=== PATIENT | female | born 1950 | race Caucasian/White ===

== ENCOUNTER 2019-04-17 13:16 | Observation (INO) | payer OTHER, BC ==
[2019-04-17] MEDS ORDERED: ASPIRIN 81 MG CHEWABLE TABLETS PO ONE (13:30)
--- NOTE | 2019-04-17 13:30 | PDOC ---
Rapid Medical Evaluation Time Seen by Provider: 04/17/19 13:26 Medical Evaluation: Allergies Allergy/AdvReac Type Severity Reaction Status Date / Time ciprofloxacin AdvReac Verified 08/29/16 14:11 04/17/19 13:26 I have performed a brief in-person evaluation of this patient. The patient presents with a chief complaint of: intermittent chest pain/SOB x 1 day, venous ulcer to R leg "needs antibiotics", using mupirocin cream rxed in this ED with improvement Pertinent physical exam findings:well appearing, venous stasis ulcer to R anterior LE I have ordered the following: labs, x-ray, EKG The patient will proceed to the ED for further evaluation.
--- NOTE | 2019-04-17 13:46 | PDOC ---
Rapid Medical Evaluation Time Seen by Provider: 04/17/19 13:26 Medical Evaluation: Allergies Allergy/AdvReac Type Severity Reaction Status Date / Time ciprofloxacin AdvReac Verified 04/17/19 13:39 04/17/19 13:42 I have performed a brief in-person evaluation of this patient. The patient presents with a chief complaint of: cough/congestion/cp x 3 weeks, dizzy, weakness, PCP Eric Vernon sent to ED after given cefuroxime w/o relief Pertinent physical exam findings: dry cough I have ordered the following: labs, CXR The patient will proceed to the ED for further evaluation.
--- NOTE | 2019-04-17 15:01 | PDOC ---
History of Present Illness - General Chief Complaint: Cold Symptoms Stated Complaint: COUGHING/ WEAKNESS Time Seen by Provider: 04/17/19 13:26 - History of Present Illness Initial Comments: 68 year old female with history of HLD presenting with cough for the past three weeks despite using cefuroxime for the past week. States that she noticed a light cough and started to have chills three weeks prior and then seemed to improve slightly. Her symptoms returned and she started cefuroxime after seeing Dr. noriega last week. However, her symptoms have persisted so Dr. noriega ordered an outpatient chest CT for this Monday. She states that today she started to feel weak and lightheaded despite eating her normal amount of food and drinking her normal amount of fluid. Denies syncope, chest pain, current fever (last fever was three days prior), myalgias, SOB, chest pain, hemoptysis, palpitations. 04/17/19 15:37 Past History - Past Medical History Allergies/Adverse Reactions: Allergies Allergy/AdvReac Type Severity Reaction Status Date / Time ciprofloxacin AdvReac Verified 04/17/19 13:39 Home Medications: Ambulatory Orders Simvastatin 10 mg PO DAILY 08/29/16 Amlodipine Besylate/Valsartan [Amlodipine-Valsartan 10-160 mg] 1 tbs PO DAILY Fluticasone/Umeclidin/Vilanter [Trelegy Ellipta 100-62.5-25] 1 each [facility] PRN 04/17/19 Furosemide 20 mg PO DAILY 04/17/19 Lubiprostone [Amitiza] 24 mcg PO BID 04/17/19 Metoprolol Tartrate 25 mg PO BID 04/17/19 COPD: No CHF: Yes HTN: Yes Hypercholesterolemia: Yes - Immunization History Immunization Up to Date: Yes - Suicide/Smoking/Psychosocial Hx Smoking History: Never smoked Information on smoking cessation initiated: No Hx Alcohol Use: No Drug/Substance Use Hx: No Substance Use Type: None Hx Substance Use Treatment: No Review of Systems - Review of Systems Constitutional: Yes: Chills, Fever. No: See HPI HEENTM: No: Eye Pain, Blurred Vision, Tearing Respiratory: Yes: Cough. No: Shortness of Breath, Wheezing Cardiac (ROS): Yes: Lightheadedness. No: Chest Pain, Edema, Irregular Heart Rate ABD/GI: No: Diarrhea, Nausea, Vomiting : No: Burning, Dysuria, Discharge Musculoskeletal: No: Back Pain, Joint Pain Integumentary: No: Bruising, Erythema, Flushing, Lesions Neurological: No: Headache, Numbness, Paresthesia Psychiatric: No: Anxiety, Depression Hematologic/Lymphatic: No: Anemia, Blood Clots *Physical Exam - Vital Signs Last Vital Signs Temp Pulse Resp BP Pulse Ox 98.2 F 69 16 100/64 95 04/17/19 13:40 04/17/19 13:40 04/17/19 13:40 04/17/19 13:40 04/17/19 13:40 - Physical Exam General Appearance: Yes: Nourished, Appropriately Dressed. No: Apparent Distress HEENT: positive: EOMI, EVARISTO, Normal ENT Inspection, Normal Voice Neck: positive: Trachea midline, Normal Thyroid, Supple. negative: Tender, Rigid Respiratory/Chest: positive: Lungs Clear, Normal Breath Sounds. negative: Chest Tender, Respiratory Distress, Accessory Muscle Use Cardiovascular: positive: Regular Rhythm, Regular Rate Gastrointestinal/Abdominal: positive: Normal Bowel Sounds, Flat, Soft. negative : Tender Lymphatic: negative: Adenopathy, Tenderness Musculoskeletal: positive: Normal Inspection. negative: Decreased Range of Motion Extremity: positive: Normal Capillary Refill, Normal Inspection, Normal Range of Motion. negative: Tender Integumentary: positive: Normal Color, Dry, Warm Neurologic: positive: Fully Oriented, Alert, Normal Mood/Affect, Normal Response , Motor Strength 5/5 ED Treatment Course - LABORATORY CBC & Chemistry Diagram: 04/18/19 06:00 04/17/19 16:13 Medical Decision Making - Medical Decision Making 68 year old female with lightheadedness after three weeks of a cough. Otherwise appears well and VSS with clear CXR. Chest CT also WNL. Troponin negative and EKg demonstrating rat 61, MS 160, QRS 104, QTc 406, normal axis, inferior infarct, and anterior twave inversion unchanged from previous EKG in . Patient still slightly light headed so we gave one liter of NS and patient is pending re-eval by Dr. Luevano. 04/17/19 19:37 *DC/Admit/Observation/Transfer Diagnosis at time of Disposition: Generalized weakness, Cough, Dizziness - Discharge Dispostion Condition at time of disposition: Stable - Referrals - Patient Instructions - Post Discharge Activity
[2019-04-17 16:31] LABS: BASO % 0.7 % (0-2.0); EOS % 1.4 % (0-4.5); HEMATOCRIT 42.2 % (32.4-45.2); HEMOGLOBIN 13.9 GM/dL (10.7-15.3); LYMPH % 36.3 % (8-40); MCH 28.8 pg (25.7-33.7); MEAN CELL VOLUME 87.2 fl (80-96); MEAN PLT VOLUME 9.2 fl (7.5-11.1); MONO % 8.4 % (3.8-10.2); NEUT % 53.2 % (42.8-82.8); PLATELET COUNT 252 K/MM3 (134-434); RBC 4.84 M/mm3 (3.60-5.2); RDW 13.6 % (11.6-15.6); WHITE BLOOD COUNT 7.6 K/mm3 (4.0-10.0)
[2019-04-17 16:48] LABS: INR 0.97 (0.83-1.09); PROTHROMBIN TIME (PATIENT) 11.5 SEC (9.7-13.0)
[2019-04-17 17:06] LABS: ALBUMIN 3.9 g/dl (3.4-5.0); ALK PHOS 96 U/L (45-117); ANION GAP 6 MMOL/L (8-16); BILIRUBIN,TOTAL 0.3 mg/dL (0.2-1); BLOOD UREA NITROGEN 20 mg/dL (7-18); CHLORIDE 104 mmol/L (98-107); CO2 29 mmol/L (21-32); CREATININE 0.7 mg/dL (0.55-1.3); GLUCOSE,RANDOM 82 mg/dL (74-106); MAGNESIUM 2.4 mg/dL (1.8-2.4); POTASSIUM 4.1 mmol/L (3.5-5.1); SGOT/AST 9 U/L (15-37); SGPT/ALT 31 U/L (13-61); SODIUM 139 mmol/L (136-145); TOT PROT 7.6 g/dl (6.4-8.2)
--- NOTE | 2019-04-17 17:48 | PDOC ---
Documentation entered by Byron Chairez SCRIBE, acting as scribe for Daylin Campa MD. Daylin Campa MD: This documentation has been prepared by the Contreras thomas Nirvannie, SCRIBE, under my direction and personally reviewed by me in its entirety. I confirm that the documentation accurately reflects all work, treatment, procedures, and medical decision making performed by me. Attending Attestation - Resident Resident Name: Sinan Arango - ED Attending Attestation I have performed the following: I have examined & evaluated the patient, The case was reviewed & discussed with the resident, I agree w/resident's findings & plan - HPI HPI: 04/17/19 16:50 The patient is a 68 year old female, with a significant past medical history of HLD, who presents to the emergency department with, 3 weeks of a worsening cough. Patient notes to have been on cefuroxime the past week prescribed by her PCP Dr. Vernon, without relief. She notes to have a pending chest CT scheduled by her PCP, however, secondary to her persistent symptoms she reported to the ED. She denies any chest pain, palpitations, or focal changes in strength/ sensation. She denies recent fevers, chills, headache or dizziness. She denies recent nausea, vomit, diarrhea or constipation. She denies recent dysuria, frequency, urgency or hematuria. Allergies: Ciprofloxacin. Primary Care Physician: Dr. Vernon - Physicial Exam PE: 04/17/19 16:50 GENERAL: The patient is in no acute distress. HEAD: Normal EYES: PERRLA, EOMI, sclera anicteric, conjunctiva clear. ENT: Ears normal, nares patent, oropharynx clear without exudates. Moist mucous membranes. NECK: Normal range of motion, supple LUNGS: Breath sounds equal, coarse breath sounds R> L, coughing intermittently HEART:Regular rate and rhythm, normal S1 and S2 without murmur, rub or gallop. ABDOMEN: Soft, nontender, normoactive bowel sounds. No guarding, no rebound. No masses palpable. EXTREMITIES: Normal range of motion, no edema. NEUROLOGICAL: Cranial nerves II through XII grossly intact. Normal speech. No focal neurological deficits. 04/17/19 17:44 - Medical Decision Making 05/22/19 17:45 68 yo F with cough x almost 2 weeks No fevers or chills S/p abx x 10 days Pt has felt weak over the past 2 days Bronchitis, pneumonia, sepsis Laboratory Tests 04/17/19 04/17/19 04/17/19 16:13 16:13 16:13 WBC 7.6 Hgb 13.9 Hct 42.2 Plt Count 252 INR 0.97 BUN 20 H Creatinine 0.7 Creatine Kinase 149 Troponin I < 0.02 Will hydrate Will plan to do CT Dispo pending CT Signed out to overnight team
[2019-04-17] MEDS ORDERED: guaiFENesin/CODEINE 10 ML UNIT-DOSE CUPS PO ONE (18:53)
[2019-04-17] MEDS ORDERED: guaiFENesin/CODEINE 5 ML UNIT-DOSE CUPS PO ONE (19:01)
[2019-04-17] MEDS ORDERED: SODIUM CHLORIDE 0.9% 500 ML INFUS.BAG IV ONE (19:08)
--- NOTE | 2019-04-17 20:09 | PDOC ---
*Physical Exam - Vital Signs Last Vital Signs Temp Pulse Resp BP Pulse Ox 97.7 F 77 18 144/65 96 04/17/19 19:18 04/17/19 19:18 04/17/19 19:18 04/17/19 19:18 04/17/19 19:18 - Physical Exam Comments: GENERAL: Awake, alert, in no acute distress HEAD: No signs of trauma, normocephalic, atraumatic EYES: PERRLA, EOMI, sclera anicteric, conjunctiva clear ENT: Hearing grossly normal, nares patent, oropharynx clear without exudates. Moist mucosa LUNGS: No distress, speaks full sentences, clear to auscultation bilaterally HEART: Regular rate and rhythm, normal S1 and S2, no murmurs appreciated, peripheral pulses normal and equal bilaterally NEUROLOGICAL: Cranial nerves II through XII grossly intact. Normal speech SKIN: Warm, Dry ED Treatment Course - LABORATORY CBC & Chemistry Diagram: 04/18/19 06:00 04/17/19 16:13 - ADDITIONAL ORDERS Additional order review: Laboratory Results 04/17/19 04/17/19 16:13 16:13 PT with INR 11.50 INR 0.97 Sodium 139 Potassium 4.1 Chloride 104 Carbon Dioxide 29 Anion Gap 6 L BUN 20 H Creatinine 0.7 Est GFR (CKD-EPI)AfAm 103.18 Est GFR (CKD-EPI)NonAf 89.03 Random Glucose 82 Calcium 10.0 Magnesium 2.4 Total Bilirubin 0.3 AST 9 L ALT 31 Alkaline Phosphatase 96 Creatine Kinase 149 Troponin I < 0.02 Total Protein 7.6 Albumin 3.9 04/17/19 16:13 RBC 4.84 MCV 87.2 MCHC 33.0 RDW 13.6 MPV 9.2 Neutrophils % 53.2 Lymphocytes % 36.3 Monocytes % 8.4 Eosinophils % 1.4 Basophils % 0.7 - Medications Given in the ED: ED Medications Discontinued Medications Generic Name Dose Route Start Last Admin Trade Name Freq PRN Reason Stop Dose Admin Guaifenesin/Codeine Phosphate 10 ml 04/17/19 18:53 04/17/19 19:05 Robitussin Ac - PO 04/17/19 18:54 10 ml ONCE ONE Administration Sodium Chloride 1,000 ml 04/17/19 19:08 04/17/19 20:08 Normal Saline - IV 04/17/19 19:09 1,000 ml ONCE ONE Administration Medical Decision Making - Medical Decision Making Pt reports 3 days of 'feeling drunk' w/ walking and generalized weakness w/o fall ED Course CT chest w/o evidence of chronic pulmonary disease, no PNA or effusion noted Will add BNP to evaluate for HF and d-dimer to assess for PE Pt receiving IVF Will re-evaluate s/p fluids 04/17/19 20:40 d-dimer neg 04/17/19 21:14 BNP wnl 04/17/19 21:46 Pt continues to report feeling dizzy but improved from initial presentation She was able to ambulate a short distance w/o assistance in ED Plan for tele observation for monitoring, serial Trop and concern for ACS *DC/Admit/Observation/Transfer Diagnosis at time of Disposition: Generalized weakness, Cough, Dizziness - Discharge Dispostion Condition at time of disposition: Good Decision to Admit order: Yes - Referrals - Patient Instructions - Post Discharge Activity
[2019-04-17 22:07] LABS: URINE APPEARANCE CLEAR; URINE BILIRUBIN NEGATIVE (NEGATIVE); URINE COLOR YELLOW; URINE GLUCOSE (UA) NEGATIVE (NEGATIVE); URINE KETONE NEGATIVE (NEGATIVE); URINE LEUK ESTERASE NEGATIVE (NEGATIVE); URINE NITRITE NEGATIVE (NEGATIVE); URINE PROTEIN NEGATIVE (NEGATIVE); URINE UROBILINOGEN 0.2 mg/dL (0.2-1.0)
[2019-04-17] MEDS ORDERED: MECLIZINE HCL 25 MG TABLET (FP) PO ONE (22:38)
[2019-04-17] MEDS ORDERED: MECLIZINE HCL 12.5 MG TABLET ONE (22:59)
--- NOTE | 2019-04-18 00:53 | PN ---
Teaching Attending Note Name of Resident: Eloy Stockton ATTENDING PHYSICIAN STATEMENT I saw and evaluated the patient. I reviewed the resident's note and discussed the case with the resident. I agree with the resident's findings and plan as documented. SUBJECTIVE: Patient is a 68 year old woman with PMH of HLD and unspecified heart disease presenting with cough for the past three weeks despite using cefuroxime for the past week. States that she noticed a light cough and started to have chills three weeks prior and then seemed to improve slightly. Her symptoms returned and she started cefuroxime after seeing Dr. Vernon last week. However, her symptoms have persisted so Dr. Vernon ordered an outpatient chest CT for this Monday. She states that today she started to feel weak and lightheaded despite eating her normal amount of food and drinking her normal amount of fluid. Had a bout of palpitations a few days ago. Denies syncope, chest pain, current fever ( last fever was three days prior), myalgias, SOB, chest pain or hemoptysis. OBJECTIVE: Alert and not orthostatic Vital Signs Period Temp Pulse Resp BP Sys/Stephens Pulse Ox Last 24 Hr 97.7 F-98.2 F 69-77 16-18 100-144/64-88 95-99 HEENT: No Jaundice, eye redness or discharge, PERRLA, EOMI. Normocephalic, atraumatic. External ears are normal and hearing is grossly intact. No nasal discharge. Neck: Supple, nontender. No palpable adenopathy or thyromegaly. No JVD Chest: Good effort. Clear to auscultation and percussion. Heart: Regular. No S3, rub or murmur Abdomen: Not distended, soft, nontender and no HSM. No rebound or guarding. Normal bowel sounds. Ext: Peripheral pulses intact. No leg edema. Skin: Warm and dry. No petechiae, rash or ecchymosis. Neuro: Alert. Oriented x3. CN 2-12 grossly intact. Sensation grossly intact in all four extremities and DTR are symmetric. Psych: Appropriate mood and affect. Good insight. Current Medications Generic Name Dose Route Start Last Admin Trade Name Freq PRN Reason Stop Dose Admin Enoxaparin Sodium 40 mg 04/18/19 10:00 Lovenox - SQ DAILY ELIE Sodium Chloride 1,000 mls @ 83 mls/hr 04/18/19 01:00 Normal Saline - IV 04/18/19 13:03 ASDIR [facility] Metoprolol Tartrate 25 mg 04/18/19 10:00 Lopressor - PO BID [facility] Non-Formulary Medication 1 tbs 04/18/19 10:00 Amlodipine Besylate/Valsartan [Amlodipine-Valsartan 10-160 Mg] PO DAILY [facility] Non-Formulary Medication 1 each 04/18/19 00:57 Fluticasone/Umeclidin/Vilanter [Trelegy Ellipta 100-62.5-25] [facility] PRN ASTHMA Non-Formulary Medication 24 mcg 04/18/19 10:00 Lubiprostone [Amitiza] PO BID [facility] Non-Formulary Medication 10 mg 04/18/19 10:00 Simvastatin [Simvastatin] PO DAILY [facility] Home Medications Medication Instructions Recorded Simvastatin 10 mg PO DAILY 08/29/16 Amlodipine Besylate/Valsartan 1 tbs PO DAILY 04/17/19 [Amlodipine-Valsartan 10-160 mg] Cefuroxime Axetil [Ceftin -] 500 mg PO BID 04/17/19 Fluticasone/Umeclidin/Vilanter 1 each [facility] PRN 04/17/19 [Trelegy Ellipta 100-62.5-25] Furosemide 20 mg PO DAILY 04/17/19 Lubiprostone [Amitiza] 24 mcg PO BID 04/17/19 Metoprolol Tartrate 25 mg PO BID 04/17/19 Abnormal Lab Results 04/17/19 16:13 Anion Gap 6 L BUN 20 H AST 9 L ASSESSMENT AND PLAN: 1. Chronic cough - Etiology unclear. Persistent cough may have also led to weakness and dizziness. No acute pathology on CXR and chest CT. EKG shows NSR with T wave inversion in V1-3 which are ?old. Initial troponin is negative. Will admit to telemetry to rule out ACS, get ECHO, fasting lipids and HOLD valsartan. Consult pulmonary. 2. Obesity Counseled on the risks associated with obesity. Will provide patient all the necessary assistance, counseling and positive reinforcement to facilitate weight loss. Consult waste/materials exchange specialist. 3. Hypertension - Restart outpatient antihypertensive drugs except for Valsartan. Nonpharmacologic measures to control hypertension like weight loss, salt restriction and exercise discussed. 4. DVT prophylaxis - Lovenox 40 mg SQ q 24 hours. 5. Advance directives - Full code
--- NOTE | 2019-04-18 00:58 | HP ---
CHIEF COMPLAINT: weakness HISTORY OF PRESENT ILLNESS: 68 year old female with a hx of hypertension, hyperlipidemia, cardiac catheterization 10 years ago presented to the hospital complaining of 3 days of mild weakness. She reports that she has a dry cough that began 3 weeks ago, for which she took a course of cefuroxime (not taking currently) that has not gone away. States that she is not able to localize when her weakness began, but she felt like she has been progressively tired and weak. She reports that on Monday she felt her heart beating really fast for several minutes and then for 3 days, woke up sweating. Denies any other complaints. Reports never happening to her in the past. 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 States she sees Dr. White. Denies chest pain, dizziness, nausea, vomiting, diarrhea, fevers, chills, abdominal pain, lightheadedness. Denies starting any new medications. She lives in a house and is able to ambulate normally. ER course was notable for: (1) negative orthostatics (2) (3) Recent Travel: Denies PAST MEDICAL HISTORY: as stated above Social History: Smoking: denies, but used to be chain smoker before he passed 7 years ago Alcohol: denies Drugs: denies Allergies ciprofloxacin Adverse Reaction (Verified 04/17/19 13:39) HOME MEDICATIONS: Home Medications Medication Instructions Recorded Simvastatin 10 mg PO DAILY 08/29/16 Amlodipine Besylate/Valsartan 1 tbs PO DAILY 04/17/19 [Amlodipine-Valsartan 10-160 mg] Cefuroxime Axetil [Ceftin -] 500 mg PO BID 04/17/19 Fluticasone/Umeclidin/Vilanter 1 each [facility] PRN 04/17/19 [Trelegy Ellipta 100-62.5-25] Furosemide 20 mg PO DAILY 04/17/19 Lubiprostone [Amitiza] 24 mcg PO BID 04/17/19 Metoprolol Tartrate 25 mg PO BID 04/17/19 REVIEW OF SYSTEMS CONSTITUTIONAL: Absent: fever, chills, diaphoresis, generalized weakness, malaise, loss of appetite, weight change HEENT: Absent: rhinorrhea, nasal congestion, throat pain, throat swelling, difficulty swallowing, mouth swelling, ear pain, eye pain, visual changes CARDIOVASCULAR: Absent: chest pain, syncope, palpitations, irregular heart rate, lightheadedness , peripheral edema RESPIRATORY: Absent: cough, shortness of breath, dyspnea with exertion, orthopnea, wheezing, stridor, hemoptysis GASTROINTESTINAL: Absent: abdominal pain, abdominal distension, nausea, vomiting, diarrhea, constipation, melena, hematochezia GENITOURINARY: Absent: dysuria, frequency, urgency, hesitancy, hematuria, flank pain, genital pain MUSCULOSKELETAL: Absent: myalgia, arthralgia, joint swelling, back pain, neck pain SKIN: Absent: rash, itching, pallor HEMATOLOGIC/IMMUNOLOGIC: Absent: easy bleeding, easy bruising, lymphadenopathy, frequent infections ENDOCRINE: Absent: unexplained weight gain, unexplained weight loss, heat intolerance, cold intolerance NEUROLOGIC: Absent: headache, focal weakness or paresthesias, dizziness, unsteady gait, seizure, mental status changes, bladder or bowel incontinence PSYCHIATRIC: Absent: anxiety, depression, suicidal or homicidal ideation, hallucinations. PHYSICAL EXAMINATION Vital Signs - 24 hr 04/17/19 04/17/19 04/17/19 13:40 19:06 19:18 Temperature 98.2 F 97.7 F Pulse Rate 69 Pulse Rate [ 77 Right Radial] Respiratory 16 18 Rate Blood Pressure 100/64 Blood Pressure 144/65 [Right Arm] Blood Pressure [Sitting] Blood Pressure [Standing] Blood Pressure [Supine] O2 Sat by Pulse 95 99 96 Oximetry (%) 04/17/19 22:33 Temperature Pulse Rate Pulse Rate [ Right Radial] Respiratory Rate Blood Pressure Blood Pressure [Right Arm] Blood Pressure 135/82 [Sitting] Blood Pressure 142/88 [Standing] Blood Pressure 138/83 [Supine] O2 Sat by Pulse Oximetry (%) GENERAL: A&Ox3, no acute distress EYES: PERRLA, EOMI ENT: Moist mucus membranes NECK: No JVD LUNGS: CTA, no wheezes HEART: RRR, no murmurs ABDOMEN: Soft, nontender, BS present MUSCULOSKELETAL: No CVA Tenderness EXTREMITIES: 2+ pulses, no edema. NEUROLOGICAL: Cranial nerves II-XII intact. Ambulates normally. Laboratory Results - last 24 hr 04/17/19 04/17/19 04/17/19 16:13 16:13 16:13 WBC 7.6 RBC 4.84 Hgb 13.9 Hct 42.2 MCV 87.2 MCH 28.8 MCHC 33.0 RDW 13.6 Plt Count 252 MPV 9.2 Absolute Neuts (auto) 4.0 Neutrophils % 53.2 Lymphocytes % 36.3 Monocytes % 8.4 Eosinophils % 1.4 Basophils % 0.7 Nucleated RBC % 0 PT with INR 11.50 INR 0.97 D-Dimer Sodium 139 Potassium 4.1 Chloride 104 Carbon Dioxide 29 Anion Gap 6 L BUN 20 H Creatinine 0.7 Est GFR (CKD-EPI)AfAm 103.18 Est GFR (CKD-EPI)NonAf 89.03 Random Glucose 82 Calcium 10.0 Magnesium 2.4 Total Bilirubin 0.3 AST 9 L ALT 31 Alkaline Phosphatase 96 Creatine Kinase 149 Troponin I < 0.02 B-Natriuretic Peptide Total Protein 7.6 Albumin 3.9 Urine Color Urine Appearance Urine pH Ur Specific Manning Urine Protein Urine Glucose (UA) Urine Ketones Urine Blood Urine Nitrite Urine Bilirubin Urine Urobilinogen Ur Leukocyte Esterase 04/17/19 04/17/19 04/17/19 20:40 20:46 21:50 WBC RBC Hgb Hct MCV MCH MCHC RDW Plt Count MPV Absolute Neuts (auto) Neutrophils % Lymphocytes % Monocytes % Eosinophils % Basophils % Nucleated RBC % PT with INR INR D-Dimer 369 Sodium Potassium Chloride Carbon Dioxide Anion Gap BUN Creatinine Est GFR (CKD-EPI)AfAm Est GFR (CKD-EPI)NonAf Random Glucose Calcium Magnesium Total Bilirubin AST ALT Alkaline Phosphatase Creatine Kinase Troponin I B-Natriuretic Peptide 70.0 Total Protein Albumin Urine Color Yellow Urine Appearance Clear Urine pH 6.0 Ur Specific Manning 1.016 Urine Protein Negative Urine Glucose (UA) Negative Urine Ketones Negative Urine Blood Negative Urine Nitrite Negative Urine Bilirubin Negative Urine Urobilinogen 0.2 Ur Leukocyte Esterase Negative ASSESSMENT/PLAN: 68 year old female with a hx of hypertension, hyperlipidemia, cardiac catheterization 10 years ago presented to the hospital complaining of 3 days of mild weakness. #Weakness: could be related to dehydration due to elevated BUN/Cre ratio, orthostatics negative, doubt presyncope, however due to prior palpitations, would like to monitor on tele -obs tele -cardiac monitoring -Dr. zaman consulted -EKG NSR rate 61 QTc 406 with inferior infarct and inverted T waves inferior leads -physical therapy -fluid hydration -UA normal -CXR normal #Hypertension: not hypertensive -continue amlodipine -continue metoprolol -continue valsartan #Hyperlipidemia -continue atorvastatin #FEN -NS @ 83cc/hr #Prophylaxis -lovenox #Disposition -admit tele obs Visit type - Emergency Visit Emergency Visit: Yes ED Registration Date: 04/18/19 Care time: The patient presented to the Emergency Department on the above date and was hospitalized for further evaluation of their emergent condition. - New Patient This patient is new to me today: Yes Date on this admission: 04/18/19 - Critical Care Critical Care patient: No
[2019-04-18] MEDS ORDERED: SODIUM CHLORIDE 1,000 ML IV SCH (01:00)
[2019-04-18 06:26] LABS: HEMATOCRIT 40.1 % (32.4-45.2); HEMOGLOBIN 13.3 GM/dL (10.7-15.3); MCHC 33.2 g/dl (32.0-36.0); MEAN CELL VOLUME 87.3 fl (80-96); PLATELET COUNT 222 K/MM3 (134-434); RBC 4.59 M/mm3 (3.60-5.2); RDW 13.9 % (11.6-15.6); WHITE BLOOD COUNT 5.7 K/mm3 (4.0-10.0)
[2019-04-18 07:02] LABS: PHOSPHOROUS 3.2 mg/dL (2.5-4.9)
--- NOTE | 2019-04-18 09:38 | EKG ---
Test Reason : Blood Pressure : / mmHG Vent. Rate : 061 BPM Atrial Rate : 061 BPM P-R Int : 160 ms QRS Dur : 104 ms QT Int : 404 ms P-R-T Axes : 010 008 032 degrees QTc Int : 406 ms NORMAL SINUS RHYTHM INFERIOR INFARCT (CITED ON OR BEFORE 12-SEP-2010) T WAVE ABNORMALITY, CONSIDER ANTERIOR ISCHEMIA ABNORMAL ECG WHEN COMPARED WITH ECG OF 30-AUG-2016 09:52, NO SIGNIFICANT CHANGE WAS FOUND Confirmed by ROHINI HORTA MD ([id number]) on 04/18/2019 9:37:53 AM Referred By: Confirmed By:ROHINI HORTA MD
[2019-04-18] MEDS ORDERED: VALSARTAN 160 MG TABLET (UD) PO SCH (10:00)
[2019-04-18] MEDS ORDERED: PATIENT'S OWN MEDICATION (NON-FORMULARY) (Amlodipine Besylate/Valsartan [Amlodipine-Valsar PO SCH (10:00)
[2019-04-18] MEDS ORDERED: ENOXAPARIN NA (PORCINE) 40 MG/0.4 ML DISP.SYRIN SQ SCH (10:00)
[2019-04-18] MEDS ORDERED: METOPROLOL TARTRATE 25 MG TABLET (FP) PO SCH (10:00)
[2019-04-18] MEDS ORDERED: amLODIPine BESYLATE 10 MG TABLET (FP) PO SCH (10:00)
[2019-04-18] MEDS ORDERED: PATIENT'S OWN MEDICATION (NON-FORMULARY) (Lubiprostone [Amitiza] 24 MCG) PO SCH (10:00)
--- NOTE | 2019-04-18 12:23 | ECHO ---
Name: TEETEE OLSON Exam:Adult Echocardiogram Study Date: 04/18/2019 09:27 AM Age: 68 yrs Reason For Study: SYNCOPE Height: 64 in Weight: 175 lb BSA: 1.8 m2 MMode/2D Measurements & Calculations IVSd: 0.86 cm Ao root diam: 3.6 cm LVIDd: 4.7 cm LA dimension: 2.9 cm LVIDs: 3.3 cm ACS: 1.9 cm LVPWd: 0.70 cm IVSs: 1.0 cm LVPWs: 1.1 cm EDV(Teich): 102.0 ml ESV(Teich): 43.2 ml Doppler Measurements & Calculations MV E max mayo: 58.5 cm/sec Ao V2 max: 129.0 cm/sec MV A max mayo: 69.1 cm/sec Ao max P.7 mmHg MV E/A: 0.85 Ao V2 mean: 89.1 cm/sec Ao mean P.4 mmHg Ao V2 VTI: 24.2 cm PI end-d mayo: 86.9 cm/sec Med Peak E' Mayo: 6.6 cm/sec Med E/e': 8.9 Lat Peak E' Mayo: 7.1 cm/sec Lat E/e': 8.2 Procedure A complete two-dimensional transthoracic echocardiogram was performed (2D, M-mode, Doppler and color flow Doppler). Left Ventricle The left ventricular size, thickness and function are normal. The left ventricular ejection fraction is normal. Ejection Fraction = 60-65%. The left ventricular wall motion is normal. Right Ventricle The right ventricle is normal in size and function. Atria Normal left and right atrial size and function. Mitral Valve There is no mitral regurgitation noted. Tricuspid Valve No tricuspid regurgitation. There was insufficient TR detected to calculate RV systolic pressure. Aortic Valve The aortic valve is trileaflet. No hemodynamically significant valvular aortic stenosis. No aortic regurgitation is present. Pulmonic Valve Trace pulmonic valvular regurgitation. Great Vessels The aortic root is normal size. Pericardium/Pleura There is no pericardial effusion. Interpretation Summary The left ventricular size, thickness and function are normal The right ventricle is normal in size and function. Trace pulmonic valvular regurgitation. MD Tai Meadows 04/18/2019 12:22 PM
--- NOTE | 2019-04-18 12:32 | CON.CARD ---
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 Past few days has felt weak all over, lack of energy. No cp sob palps dizzy loc pnd orthopnea le edema. Few weeks ago had cough and some diarrhea, resolved now. Sees dr sharma for cardio. - History Source History Provided By: Patient, Medical Record Limitations to Obtaining History: No Limitations - Past Medical History Cardio/Vascular: Yes: HTN, Hyperlipdemia - Alcohol/Substance Use Hx Alcohol Use: No - Smoking History Smoking history: Never smoked - Social History ADL: Independent History of Recent Travel: No Home Medications - Allergies Allergies/Adverse Reactions: Allergies Allergy/AdvReac Type Severity Reaction Status Date / Time ciprofloxacin AdvReac Verified 04/17/19 13:39 - Home Medications Ambulatory Orders Simvastatin 10 mg PO DAILY 08/29/16 Amlodipine Besylate/Valsartan [Amlodipine-Valsartan 10-160 mg] 1 tbs PO DAILY Cefuroxime Axetil [Ceftin -] 500 mg PO BID 04/17/19 Fluticasone/Umeclidin/Vilanter [Trelegy Ellipta 100-62.5-25] 1 each [facility] PRN 04/17/19 Furosemide 20 mg PO DAILY 04/17/19 Lubiprostone [Amitiza] 24 mcg PO BID 04/17/19 Metoprolol Tartrate 25 mg PO BID 04/17/19 Family Disease History - Family Disease History Family History: Denies Review of Systems per hpi; all others normal - Risk Factors Known Risk Factors: Yes: Hypercholesterolemia, Hypertension Vital Signs: Vital Signs Period Temp Pulse Resp BP Sys/Stephens Pulse Ox Last 24 Hr 97.7 F-98.2 F 64-93 16-18 90-144/61-88 95-99 Constitutional: Yes: Well Nourished, No Distress, Calm Eyes: Yes: WNL, Conjunctiva Clear Neck: Yes: WNL, Supple, Trachea Midline Respiratory: Yes: Regular, Diminished, Rales, Rhonchi. No: Wheezes Gastrointestinal: Yes: WNL, Normal Bowel Sounds, Soft. No: Distention, Tenderness Cardiovascular: Yes: Regular Rate and Rhythm. No: Bradycardia, Tachycardia, Pulse Irregular, Gallop, Rub, Varicosities JVD: No Carotid Bruit: No PMI: Non-Displaced Heart Sounds: Yes: S1, S2. No: Split S2, S3, S4, Clicks, Gallop, Rub, Bruit Murmur: Yes: Systolic Murmur, Grade 2. No: Diastolic Murmur Edema: LLE: Trace, RLE: Trace Peripheral Pulses: 2+ Left Doralis Pedis, 2+ Right Dorsalis Pedis Integumentary: no jaundice diaphoresis Neurological: , Alert, Oriented Psychiatric: Alert, Oriented Laboratory Last Values WBC 5.7 K/mm3 (4.0-10.0) 04/18/19 06:00 RBC 4.59 M/mm3 (3.60-5.2) 04/18/19 06:00 Hgb 13.3 GM/dL (10.7-15.3) 04/18/19 06:00 Hct 40.1 % (32.4-45.2) 04/18/19 06:00 MCV 87.3 fl (80-96) 04/18/19 06:00 MCH 29.0 pg (25.7-33.7) 04/18/19 06:00 MCHC 33.2 g/dl (32.0-36.0) 04/18/19 06:00 RDW 13.9 % (11.6-15.6) 04/18/19 06:00 Plt Count 222 K/MM3 (134-434) 04/18/19 06:00 MPV 9.0 fl (7.5-11.1) 04/18/19 06:00 Absolute Neuts (auto) 4.0 K/mm3 (1.5-8.0) 04/17/19 16:13 Neutrophils % 53.2 % (42.8-82.8) 04/17/19 16:13 Lymphocytes % 36.3 % (8-40) 04/17/19 16:13 Monocytes % 8.4 % (3.8-10.2) 04/17/19 16:13 Eosinophils % 1.4 % (0-4.5) 04/17/19 16:13 Basophils % 0.7 % (0-2.0) 04/17/19 16:13 Nucleated RBC % 0 % (0-0) 04/17/19 16:13 PT with INR 11.50 SEC (9.7-13.0) 04/17/19 16:13 INR 0.97 (0.83-1.09) 04/17/19 16:13 D-Dimer 369 ng/ml (0-500) 04/17/19 20:46 Sodium 139 mmol/L (136-145) 04/17/19 16:13 Potassium 4.1 mmol/L (3.5-5.1) 04/17/19 16:13 Chloride 104 mmol/L (98-107) 04/17/19 16:13 Carbon Dioxide 29 mmol/L (21-32) 04/17/19 16:13 Anion Gap 6 MMOL/L (8-16) L 04/17/19 16:13 BUN 20 mg/dL (7-18) H 04/17/19 16:13 Creatinine 0.7 mg/dL (0.55-1.3) 04/17/19 16:13 Est GFR (CKD-EPI)AfAm 103.18 04/17/19 16:13 Est GFR (CKD-EPI)NonAf 89.03 04/17/19 16:13 Random Glucose 82 mg/dL (74-106) 04/17/19 16:13 Hemoglobin A1c % 6.0 % (4.2-6.3) 04/18/19 06:00 Calcium 10.0 mg/dL (8.5-10.1) 04/17/19 16:13 Phosphorus 3.2 mg/dL (2.5-4.9) 04/18/19 06:00 Magnesium 2.0 mg/dL (1.8-2.4) 04/18/19 06:00 Total Bilirubin 0.3 mg/dL (0.2-1) 04/17/19 16:13 AST 9 U/L (15-37) L 04/17/19 16:13 ALT 31 U/L (13-61) 04/17/19 16:13 Alkaline Phosphatase 96 U/L (45-117) 04/17/19 16:13 Creatine Kinase 149 U/L (26-192) 04/17/19 16:13 Troponin I < 0.02 ng/ml (0.00-0.05) 04/17/19 16:13 B-Natriuretic Peptide 70.0 pg/ml (5-125) 04/17/19 20:40 Total Protein 7.6 g/dl (6.4-8.2) 04/17/19 16:13 Albumin 3.9 g/dl (3.4-5.0) 04/17/19 16:13 TSH 1.47 uIU/ml (0.358-3.74) 04/18/19 06:00 Urine Color Yellow 04/17/19 21:50 Urine Appearance Clear 04/17/19 21:50 Urine pH 6.0 (5.0-8.0) 04/17/19 21:50 Ur Specific [place] 1.016 (1.010-1.035) 04/17/19 21:50 Urine Protein Negative (NEGATIVE) 04/17/19 21:50 Urine Glucose (UA) Negative (NEGATIVE) 04/17/19 21:50 Urine Ketones Negative (NEGATIVE) 04/17/19 21:50 Urine Blood Negative (NEGATIVE) 04/17/19 21:50 Urine Nitrite Negative (NEGATIVE) 04/17/19 21:50 Urine Bilirubin Negative (NEGATIVE) 04/17/19 21:50 Urine Urobilinogen 0.2 mg/dL (0.2-1.0) 04/17/19 21:50 Ur Leukocyte Esterase Negative (NEGATIVE) 04/17/19 21:50 echo 03/2019: nl lv/rv, no sig valve path ecg: sr, nl intervals, nonspec tw changes, similar to prior, no st changes ct chest: no chf/pna Assessment/Plan 68 year old woman with a history of HTN, HLD, 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 weakness: -no suggestion of cardiac etiology -no chf, arrhythmia, acs -ortho vitals wnl -echo unremarkable here -plans per pmd htn: -cont home meds hld: -cont statin cad/myocardial bridging: -no cp sxs -cont home cardiac meds, bb le edema/venous insuff: -stable on home dose lasix cardiac chauhan stable
--- NOTE | 2019-04-18 12:50 | DS ---
Physical Exam: SUBJECTIVE: Patient seen and examined, improved, no further weakness or dizziness, tolerating diet well. OBJECTIVE: Vital Signs Period Temp Pulse Resp BP Sys/Stephens Pulse Ox Last 24 Hr 97.7 F-98.2 F 64-93 16-18 90-144/61-88 95-99 Intake & Output 04/15/19 04/16/19 04/17/19 04/18/19 23:59 23:59 23:59 23:59 Weight 175 lb PHYSICAL EXAM GENERAL: The patient is awake, alert, and fully oriented, in no acute distress. HEAD: Normal with no signs of trauma. EYES: PERRL, extraocular movements intact, sclera anicteric, conjunctiva clear. ENT: Ears normal, nares patent, oropharynx clear without exudates, moist mucous membranes. NECK: Trachea midline, full range of motion, supple. LUNGS: Breath sounds equal, clear to auscultation bilaterally, no wheezes, no crackles, no accessory muscle use. HEART: Regular rate and rhythm, S1, S2 ABDOMEN: Soft, nontender, nondistended, normoactive bowel sounds, no guarding, no rebound, no hepatosplenomegaly, no masses. EXTREMITIES: 2+ pulses, warm, well-perfused, no edema. NEUROLOGICAL: AAOx3, facial symmetry, tongue midline, EOMI, PERRL, no pronator drift, Cranial nerves II through XII grossly intact. Normal speech, gait not observed. PSYCH: Normal mood, normal affect. SKIN: Warm, dry, normal turgor, no rashes or lesions noted. LABS Laboratory Results - last 24 hr 04/17/19 04/17/19 04/17/19 16:13 16:13 16:13 WBC 7.6 RBC 4.84 Hgb 13.9 Hct 42.2 MCV 87.2 MCH 28.8 MCHC 33.0 RDW 13.6 Plt Count 252 MPV 9.2 Absolute Neuts (auto) 4.0 Neutrophils % 53.2 Lymphocytes % 36.3 Monocytes % 8.4 Eosinophils % 1.4 Basophils % 0.7 Nucleated RBC % 0 PT with INR 11.50 INR 0.97 D-Dimer Sodium 139 Potassium 4.1 Chloride 104 Carbon Dioxide 29 Anion Gap 6 L BUN 20 H Creatinine 0.7 Est GFR (CKD-EPI)AfAm 103.18 Est GFR (CKD-EPI)NonAf 89.03 Random Glucose 82 Hemoglobin A1c % Calcium 10.0 Phosphorus Magnesium 2.4 Total Bilirubin 0.3 AST 9 L ALT 31 Alkaline Phosphatase 96 Creatine Kinase 149 Troponin I < 0.02 B-Natriuretic Peptide Total Protein 7.6 Albumin 3.9 TSH Urine Color Urine Appearance Urine pH Ur Specific [place] Urine Protein Urine Glucose (UA) Urine Ketones Urine Blood Urine Nitrite Urine Bilirubin Urine Urobilinogen Ur Leukocyte Esterase 04/17/19 04/17/19 04/17/19 20:40 20:46 21:50 WBC RBC Hgb Hct MCV MCH MCHC RDW Plt Count MPV Absolute Neuts (auto) Neutrophils % Lymphocytes % Monocytes % Eosinophils % Basophils % Nucleated RBC % PT with INR INR D-Dimer 369 Sodium Potassium Chloride Carbon Dioxide Anion Gap BUN Creatinine Est GFR (CKD-EPI)AfAm Est GFR (CKD-EPI)NonAf Random Glucose Hemoglobin A1c % Calcium Phosphorus Magnesium Total Bilirubin AST ALT Alkaline Phosphatase Creatine Kinase Troponin I B-Natriuretic Peptide 70.0 Total Protein Albumin TSH Urine Color Yellow Urine Appearance Clear Urine pH 6.0 Ur Specific [place] 1.016 Urine Protein Negative Urine Glucose (UA) Negative Urine Ketones Negative Urine Blood Negative Urine Nitrite Negative Urine Bilirubin Negative Urine Urobilinogen 0.2 Ur Leukocyte Esterase Negative 04/18/19 04/18/19 04/18/19 06:00 06:00 06:00 WBC 5.7 RBC 4.59 Hgb 13.3 Hct 40.1 MCV 87.3 MCH 29.0 MCHC 33.2 RDW 13.9 Plt Count 222 MPV 9.0 Absolute Neuts (auto) Neutrophils % Lymphocytes % Monocytes % Eosinophils % Basophils % Nucleated RBC % PT with INR INR D-Dimer Sodium Potassium Chloride Carbon Dioxide Anion Gap BUN Creatinine Est GFR (CKD-EPI)AfAm Est GFR (CKD-EPI)NonAf Random Glucose Hemoglobin A1c % 6.0 Calcium Phosphorus 3.2 Magnesium 2.0 Total Bilirubin AST ALT Alkaline Phosphatase Creatine Kinase Troponin I B-Natriuretic Peptide Total Protein Albumin TSH 1.47 Urine Color Urine Appearance Urine pH Ur Specific [place] Urine Protein Urine Glucose (UA) Urine Ketones Urine Blood Urine Nitrite Urine Bilirubin Urine Urobilinogen Ur Leukocyte Esterase 2D echo: normal LV/RV size/function. 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 Patient reported cough and URI like illness recently and was on cefuroxime. She was afebrile with normal WBC, and negative infectious work up. Her orthostatics were neg. She was placed on gentle hydration, telemetry had no concerns. She had 2D echo with no concerns as above, was evaluated by cardiology with no additional recommendations. She was noted ambulating freely. She will be discharged home in stable condition with outpatient PCP and cardiology follow up. Condition: Stable - Instructions Diet, Activity, Other Instructions: You were admitted to the hospital for weakness. You were watched on monitor, also had 2 D echo and seen by dental floss packer with no concerns. Your symptoms improved and at this point you are medically stable for discharge from the hospital. You should follow up with your primary care physician within one week. You should follow up with a dental floss packer for further evaluation and management. If you have any concerning symptoms you should be seen by your doctor or return to the emergency department for further evaluation. Referrals: Sudhir White MD [Staff Physician] - Thai Saenz MD [Staff Physician] - Disposition: HOME - Home Medications Comprehensive Discharge Medication List: Ambulatory Orders Simvastatin 10 mg PO DAILY 08/29/16 Amlodipine Besylate/Valsartan [Amlodipine-Valsartan 10-160 mg] 1 tbs PO DAILY Fluticasone/Umeclidin/Vilanter [Trelegy Ellipta 100-62.5-25] 1 each [facility] PRN 04/17/19 Furosemide 20 mg PO DAILY 04/17/19 Lubiprostone [Amitiza] 24 mcg PO BID 04/17/19 Metoprolol Tartrate 25 mg PO BID 04/17/19 This patient is new to me today: Yes Date on this admission: 04/18/19 Emergency Visit: Yes ED Registration Date: 04/18/19 Care time: The patient presented to the Emergency Department on the above date and was hospitalized for further evaluation of their emergent condition. Critical Care patient: No - Discharge Referral Referred to [facility] Med P.C.: No
[2019-04-18 14:30] VITALS: BP 125/85; PULSE 83; TEMP 97.9
[2019-04-18] MEDS ORDERED: ATORVASTATIN CA 10 MG TABLET (FP) PO SCH (22:00)
== END 2019-04-18 14:33 | disposition home or self-care (01) ==
LOC: JER 13:16 → JERBED 04-18 00:17
PROVIDERS: ADMIT Internal Medicine; ATTEND Hospitalist
PROC: 3E0337Z Introduction of Electrolytic and Water Balance Substance into Peripheral Vein, Percutaneous Approach (ICD-10-PCS; principal; 2019-04-18)
PROC: 3E013GC Introduction of Other Therapeutic Substance into Subcutaneous Tissue, Percutaneous Approach (ICD-10-PCS; 2019-04-18)
DX: R53.1 Weakness (principal); R05 Cough; R42 Dizziness and giddiness; I11.0 Hypertensive heart disease with heart failure; I50.9 Heart failure, unspecified; E78.5 Hyperlipidemia, unspecified; Z88.1 Allergy status to other antibiotic agents; E66.9 Obesity, unspecified; Z68.30 Body mass index [BMI] 30.0-30.9, adult
CPT/HCPCS: 36415; 71046-TC-FY; 71250-TC; 80053; 81003; 82550; 83036; 83735; 83880; 84100; 84443; 84484; 85025; 85027; 85379; 85610; 93005; 93010; 93306-TC; 96372; 97161-GP; 99284-25; G0378; J7030

== ENCOUNTER 2019-08-20 10:57 | Inpatient (IN) | payer OTHER, BC ==
--- NOTE | 2019-08-20 12:08 | CON.CARD ---
Cardiology Consult (text) - Consultation Consultation Note: Patient sent to ER from office to r/o pulmonary embolism vs pleural effusion vs pericardial effusion. 69F w/ PMH myocardial bridge, HTN, diastolic dysfx and recent admission for PNA/ sepsis/DVT at [facility], discharged one week ago on oral abx, prednisone taper and Xarelto. Since yesterday, several severe episodes left sided sharp chest pain worse w/ deep breathing associated with SOB. No fever/chills. + Cough. ECG office w/ diffuse ST changes in anterior precordial leads, no change since 2016. REC: 1. Supplimental O2 2. Stat Labs 3. Repeat Chest CT to evaluate for PE, effusion etc. 4. Echo 5. Cardiac enzymes 6. Pulm eval 7. Cont AC 8. Tele Full consult to follow
--- NOTE | 2019-08-20 12:10 | EKG ---
Test Reason : Blood Pressure : / mmHG Vent. Rate : 086 BPM Atrial Rate : 086 BPM P-R Int : 156 ms QRS Dur : 098 ms QT Int : 346 ms P-R-T Axes : 019 007 030 degrees QTc Int : 414 ms NORMAL SINUS RHYTHM INFERIOR INFARCT (CITED ON OR BEFORE 12-SEP-2010) ABNORMAL ECG WHEN COMPARED WITH ECG OF 17-APR-2019 15:33, T WAVE INVERSION MORE EVIDENT IN ANTEROLATERAL LEADS Confirmed by MD Woo, Bean ([id number]) on 08/20/2019 12:09:46 PM Referred By: Confirmed By:Bean Berkowitz MD
--- NOTE | 2019-08-20 12:26 | PDOC ---
History of Present Illness - General Stated Complaint: SENT BY DR Ramos Seen by Provider: 08/20/19 11:20 History Source: Patient, Family (Daughter and home health aid at bedside.), Old Records, Other ([facility] discharge papers. Clinic papers from Dr. White.) Exam Limitations: No Limitations - History of Present Illness Initial Comments: HPI: 69 y/o female presenting to [facility] ER from Dr. [facility] for pleuritic chest pain and SPO2 of 94% in office. Pt endorses two days of intermittent and pleuritic left sided chest pain with some radiation to left shoulder. Further endorses nonproductive cough during this period. Pt was recently discharged from [facility] on 12 Aug 2019 for septic pneumonia. Course complicated by lower left extremity DVT. Started on Eliquis. Completed antibiotics as inpatient. Discharged on Prednisone taper. PCP: Dr. Vernon Medical Hx: - HTN - HLD - Non-obstructive CAD with a LAD myocardial bridge seen on cath 08/2010 - Chronic venous insufficiency with intermittent b/l LE edema Surgical Hx: - Hysterectomy Review of Systems: In addition to that documented in the HPI above, the additional ROS was obtained : Constitutional: Denies fevers or chills Head: Endorses unchanged blurry vision - present since admission at [facility] ENMT: Denies sore throat CV: Per HPI. Denies palpitations. Resp: Endorses SOB. GI: Endorses episode of diarrhea yesterday. Denies vomiting : Denies painful urination, hematuria MSK: Denies recent trauma Skin: Denies new rashes Neuro: Denies new numbness or tingling or weakness Endocrine: Denies polyuria Heme: Denies bleeding or bruising Physical Examination: Constitutional: Well-developed, well-nourished elderly adult female in no acute distress or obvious discomfort. Found semi-fowlers on hospital bed. Answered all questions appropriately and completely. Speech was non-labored, non- pressured. Head: Normocephalic. No obvious external signs of trauma. Cardiovascular / Chest: Regular rate and regular rhythm. No murmur, rubs, clicks , or gallops. Peripheral pulses: radial pulses full. Respiratory: Breathing unlabored. Equal chest rise and fall. Decreased breath sounds in left lower posterior lobe. No stridor, no wheezing, no rhonchi. Gastrointestinal: abdomen is soft, non-tender, non-distended. Neuro: Alert and oriented x4. Moving all four extremities spontaneously. Skin: Warm, dry, and intact. No redness or point tenderness to left lower extremity. Psych: Affect: appropriate. Mood: normal. MDM: *Reviewed vital signs, nursing notes, and prior visit documentation (if available). 69 y/o female with pleuritic chest pain and shortness of breath 1.5 weeks after discharge from septic pneumonia. Known DVT on Eliquis. Afebrile. Vitals unremarkable for hypotension or tachycardia. SPO2 ranging from 93%-99% on room air. CBC revealed leukocytosis, possibly secondary to Prednisone therapy. CXR revealed possible retrocardiac infiltrate versus pleural effusion. CTA cannot exclude distal branch emboli. Low suspicion for clinically significant PE. Echo revealed pericardial effusion without tamponade. Pt evaluated by cardiology in the department. Suggested admission to telemetry for further monitoring. In person discussion with resident Dr. Lloyd. Verbally appraised of the pts HPI , ED course, and current plan of management. Will admit pt to telemetry for attending Dr. Dyer. Santino Moss M.D., PGY2 Emergency Medicine Resident Past History - Past Medical History Allergies/Adverse Reactions: Allergies Allergy/AdvReac Type Severity Reaction Status Date / Time ciprofloxacin AdvReac Verified 08/20/19 11:18 Home Medications: Ambulatory Orders Albuterol 0.083% Nebulizer Zulay [Ventolin 0.083%] 1 neb NEB Q4H PRN 08/20/19 Benzonatate [Tessalon Pearls -] 100 mg PO TID PRN 08/20/19 Furosemide [Lasix -] 40 mg PO DAILY 08/20/19 Ipratropium 0.02% Nebulizer [Atrovent] 1 neb NEB QID PRN 08/20/19 Metoprolol Succinate 25 mg PO ASDIR 08/20/19 Prednisone 5 mg PO ASDIR 08/20/19 Rivaroxaban [Xarelto] 15 mg PO DAILY 08/20/19 COPD: No CHF: Yes DVT: Yes HTN: Yes Hypercholesterolemia: Yes - Immunization History Immunization Up to Date: Yes - Suicide/Smoking/Psychosocial Hx Smoking History: Never smoked Hx Alcohol Use: No Drug/Substance Use Hx: No Substance Use Type: None Hx Substance Use Treatment: No *Physical Exam - Vital Signs Last Vital Signs Temp Pulse Resp BP Pulse Ox 98.6 F 86 20 113/75 94 L 08/20/19 11:10 08/20/19 11:10 08/20/19 11:10 08/20/19 11:10 08/20/19 11:10 ED Treatment Course - LABORATORY CBC & Chemistry Diagram: 08/20/19 11:53 08/20/19 11:53 *DC/Admit/Observation/Transfer Diagnosis at time of Disposition: Shortness of breath, Pleuritic chest pain, Pericardial effusion without cardiac tamponade - Discharge Dispostion Condition at time of disposition: Stable Decision to Admit order: Yes - Referrals Referrals: Eric Vernon MD [Primary Care Provider] - - Patient Instructions - Post Discharge Activity
[2019-08-20 12:30] LABS: BASO % 0.1 % (0-2.0); HEMATOCRIT 38.9 % (32.4-45.2); HEMOGLOBIN 12.9 GM/dL (10.7-15.3); LYMPH % 4.1 % (8-40); MCH 28.4 pg (25.7-33.7); MCHC 33.1 g/dl (32.0-36.0); MEAN CELL VOLUME 85.9 fl (80-96); MONO % 4.5 % (3.8-10.2); NEUT % 91.3 % (42.8-82.8); PLATELET COUNT 363 K/MM3 (134-434); RBC 4.53 M/mm3 (3.60-5.2); WHITE BLOOD COUNT 15.6 K/mm3 (4.0-10.0)
[2019-08-20 12:43] LABS: INR 1.96 (0.83-1.09); PROTHROMBIN TIME (PATIENT) 23.3 SEC (9.7-13.0)
[2019-08-20 12:46] LABS: ACTIVATED PTT 36.1 SECONDS (25.2-36.5)
[2019-08-20 12:56] LABS: ALBUMIN 3.5 g/dl (3.4-5.0); BILIRUBIN,TOTAL 0.5 mg/dL (0.2-1); BLOOD UREA NITROGEN 19.2 mg/dL (7-18); CALCIUM 9.2 mg/dL (8.5-10.1); CREATININE 0.8 mg/dL (0.55-1.3); MAGNESIUM 2.2 mg/dL (1.8-2.4); POTASSIUM 3.9 mmol/L (3.5-5.1); TOT PROT 7.4 g/dl (6.4-8.2)
--- NOTE | 2019-08-20 12:57 | PDOC ---
Attending Attestation - Resident Resident Name: MossSantino - ED Attending Attestation I have performed the following: I have examined & evaluated the patient, The case was reviewed & discussed with the resident, I agree w/resident's findings & plan - HPI HPI: 08/20/19 14:48 69 y/o female with h/o HTN, HLD, nonobstructive CAD with LAD myocardial bridge, chronic venous insufficiency, presenting to [facility] ER from Dr. Berry [facility] for left sided pleuritic chest pain and SPO2 of 94% in office. Pt endorses two days of intermittent and pleuritic left sided chest pain with some radiation to left shoulder. Further endorses nonproductive cough during this period. Pt was recently discharged from [facility] on 12 Aug 2019 for septic pneumonia, and completed antibiotic course. Course complicated by lower left extremity DVT, currently on Eliquis. Discharged on Prednisone taper. PCP: Dr. Vernon - Physicial Exam PE: 08/20/19 12:55 Agree with the resident's HPI and PE as documented in the electronic medical record. NAD, well appearing, EOMI, PERRL, MMM, nl conjunctiva, anicteric; neck supple. diminished breath sounds in left lower lung field. RRR, abdomen soft nontender. Back nontender. LAURA x4, no focal neuro deficits. Bilateral peripheral edema. normal color for ethnicity, WWP. 08/20/19 14:50 - Medical Decision Making 08/20/19 12:56 See HPI for details. Prior notes reviewed, including admissions, discharges and consultations. Vital signs reviewed, wnl. borderline sats 93-94% on RA, no distress. some periods of tachycardia on monitor Vital Signs Temp Pulse Resp BP Pulse Ox 98.6 F 82 28 H 112/68 93 L 08/20/19 11:10 08/20/19 12:25 08/20/19 12:25 08/20/19 12:25 08/20/19 12:25 DDx SOB: ACS, arrhythmia, pericardial effusion, tamponade, dissection, PE, PTX, CHF, COPD exac, pulmonary edema, pleurisy, pneumonia, viral syndrome. effusion. anemia, electrolyte/metabolic derangements. bedside pocus with pericardial effusion, mild to moderate. normal ef. no tamponade physiology. RV<LV. left pleural effusion, A line profile. laboratory results and imaging reviewed, basic labs and lytes wnl, notable for leukocytosis, however on prednisone/steroids. CXR_left pleural effusion/consolidation, known left pleural effusion Cardiac panel_neg, reassuring EKG normal sinus rhythm at 86 bpm, no interval abnormalities, narrow QRS, ST and T wave segments and morphology normal. Nonspecific T wave abnormalities with TWI in anterolateral leads, similar to prior CTA neg for PE, motion artifact. +pericardial effusion. cards cs with Dr White, see recs Admit for pericardial effusion/SOB workup, medical management. Discussed results and management plan with pt and family member at bedside, agree with impression, treatment indications, recommendations and plan. s/o to hospitalist team regarding admission 08/20/19 18:00 Procedures - Bedside Ultrasound Bedside Ultrasound: Cardiac Remarks: 08/20/19 14:46 POCUS echo and thoracic exam performed and documented/saved, indication includes chest pain/dyspnea. views obtained (PSLA, PSS, A4, SX, IVC, bilateral lung diane). Findings include normal EF on visual estimation, small moderate pericardial effusion measuring 0.9 to 1cm with no tamponade physiology (no e/o RV diastolic collapse or RA systolic collapse) or small left pleural effusion, primarily A lines, normal IVC with appropriate collapse. Normal aortic root < 4cm. RV<LV. Impression: small-moderate pericardial effusion, no tamponade, normal ejection fraction and small left pleural effusion.
[2019-08-20 13:24] LABS: URINE APPEARANCE CLEAR; URINE BILIRUBIN NEGATIVE (NEGATIVE); URINE COLOR YELLOW; URINE GLUCOSE (UA) NEGATIVE (NEGATIVE); URINE KETONE NEGATIVE (NEGATIVE); URINE LEUK ESTERASE NEGATIVE (NEGATIVE); URINE NITRITE NEGATIVE (NEGATIVE); URINE PROTEIN NEGATIVE (NEGATIVE); URINE UROBILINOGEN 0.2 mg/dL (0.2-1.0)
[2019-08-20 14:16] LABS: PLATELET ESTIMATE NORMAL
--- NOTE | 2019-08-20 15:12 | CON.CARD ---
Consult Consult Specialty:: Cardiology Referred by:: Dr. Vernon Reason for Consultation:: chest pain - History of Present Illness Chief Complaint: chest pain History of Present Illness: 69F w/ PMH myocardial bridge, HTN, diastolic dysfx and recent admission for PNA/ sepsis/DVT at [facility], discharged one week ago on oral abx, prednisone taper and Xarelto. Since yesterday, several severe episodes left sided sharp chest pain worse w/ deep breathing associated with SOB. No fever/chills. + Cough. ECG office w/ diffuse ST changes in anterior precordial leads, no change since 2016. Echo at bedside prelim: small to moderate pericardial effusion, mostly adjacent to LV. No tamponade. Chest CTA pending - History Source History Provided By: Patient - Past Medical History Cardio/Vascular: Yes: HTN, Hyperlipdemia, Other (chronic diastolic dysfx, LAD myocardial bridge) Gastrointestinal: No: Ascites, Cancer, Constipation, Crohn's Disease, Diverticulitis, Diverticulosis, Esophageal Varices, Gastritis, GERD, GI Bleed, Hemorrhoids, Hiatal Hernia, Inflamatory Bowel Disease, Irritable Bowel Disease, Pancreatitis, Peptic Ulcer Disease, Ulcerative Colitis, Other Hepatobiliary: No: Cirrhosis, Cholelithiasis, Cholecystitis, Choledocholithiasis , Hepatitis A, Hepatitis B, Hepatitis C, Other Renal/: No: Renal Failure, Renal Inusuff, BPH, Cancer, Hematuria, Hemodialysis , Neurogenic Bladder, Renal Calculi, UTI, Other Reproductive: No: Ectopic , Endometriosis, Fibroids, PID, Polycystic Ovary Syndrome, Postmenopausal, Other Heme/Onc: No: Anemia, B12 Deficiency, Bleeding Disorder, Cancer, Current Chemotherapy, Current Radiation Therapy, Hemochromatosis, Hypercoaguable State, Myeloproliferative Synd, Sickle Cell Disease, Sickle Cell Trait, Thrombocytopenia, Other Infectious Disease: No: AIDS, C-Diff, Herpes Zoster, HIV, MRSA, STD's, Tuberculosis, VREF, Other Psych: No: Addictions, Anxiety, Bipolar, Depression, Panic, Psychosis, Schizophrenia, Other Musculoskeletal: No: Bursitis, Chronic low back pain, Hemiparesis, Hemiplegia, Osteoarthritis, Paraplegia, Other Endocrine: No: Paradis's Disease, Delmar's Disease, Diabetes Insipidus, Diabetes Mellitus, Hyperparathyroidism, Hyperthyroidism, Hypothyroidism, Osteopenia, SIADH, Other Dermatology: No: Basal Cell, Cellulitis, Eczema, Melanoma, Psoriasis, Squamous Cell, Other - Past Surgical History Past Surgical History: No: None, AAA Repair, AICD, Amputation, Appendectomy, Arthrosocopy, AV Fistula/Graft, Bariatric Surgery, Breast Biopsy, Bypass, CABG, Carotid Endarterectomy, Cataract Removal, Cholecystectomy, Colectomy, Colonoscopy, Colostomy, Craniotomy, , Cystectomy, Hernia Repair, Hysterectomy, Ileal Conduit, Ileosotomy, Joint Replacement, Kidney Transplant, Laminectomy, Liver Transplant, Mastectomy, Nephrectomy, Oopherectomy, Orchiectomy, Permanent Pacemaker, Prostatectomy, Splenectomy, Stent, Thoracotomy , TURP, Tonsillectomy, Tubal Ligation, Upper Endoscopy, Valve Replacement, Vasectomy, Vein Stripping/Ligation - Alcohol/Substance Use Hx Alcohol Use: No - Smoking History Smoking history: Never smoked - Social History ADL: Independent History of Recent Travel: No Home Medications - Allergies Allergies/Adverse Reactions: Allergies Allergy/AdvReac Type Severity Reaction Status Date / Time ciprofloxacin AdvReac Verified 08/20/19 11:18 - Home Medications Home Medications: Ambulatory Orders Albuterol 0.083% Nebulizer Zulay [Ventolin 0.083%] 1 neb NEB Q4H PRN 08/20/19 Benzonatate [Tessalon Pearls -] 100 mg PO TID PRN 08/20/19 Furosemide [Lasix -] 40 mg PO DAILY 08/20/19 Ipratropium 0.02% Nebulizer [Atrovent] 1 neb NEB QID PRN 08/20/19 Metoprolol Succinate 25 mg PO ASDIR 08/20/19 Prednisone 5 mg PO ASDIR 08/20/19 Rivaroxaban [Xarelto] 15 mg PO DAILY 08/20/19 Family Medical History Family History: Unremarkable Review of Systems Findings/Remarks: see HPI - Review of Systems Constitutional: reports: No Symptoms Cardiovascular: reports: Chest Pain, Shortness of Breath Respiratory: reports: Cough, Exercise Intolerance Gastrointestinal: denies: No Symptoms, Abdominal Pain, Bloating, Constipation, Diarrhea, Dysphagia, Indigestion, Melena, Nausea, Rectal Bleeding, Vomiting, Vomiting Blood, Other Genitourinary: denies: No Symptoms, Burning, Discharge, Dysuria, Flank Pain, Frequency, Hematuria, Incontinence, Lesions, Menses, Pain, Testicular Mass, Testicular Pain, Testicular Swelling, Urgency, Vaginal Bleeding, Other Breasts: denies: No Symptoms Reported, See HPI, Breast Implants, Discharge from Nipple, Lumps, Pain, Skin Changes, Other Musculoskeletal: denies: No Symptoms, Back Pain, Crepitus, Decreased ROM, Extremity Pain, Joint Pain, Joint Swelling, Muscle Pain, Muscle Cramps, Muscle Weakness, Other Integumentary: denies: No Symptoms, Blister, Bruising, Change in Color, Eczema, Erythema, Incision, Lesions, Lump, Pallor, Pruritis, Rash, Wound, Other Neurological: denies: No Symptoms, Change in LOC, Change in Speech, Confusion, Dizziness, Headache, Incoordination, Numbness, Parasthesia, Pre-Existing Deficit , Seizure, Syncope, Tremors, Unsteady Gait, Weakness, Other Endocrine: denies: No Symptoms, Excessive Sweating, Flushing, Increased Hunger, Increased Thirst, Intolerance to Cold, Intolerance to Heat, Unexplained Weight Gain, Unexplained Weight Loss, Other Hematology/Lymphatic: denies: No Symptoms, Easily Bruised, Excessive Bleeding, Swollen Glands, Other Psychiatric: denies: No Symptoms, Altered Sleep Pattern, Anxiety, Depression, Hallucinations, Panic, Paranoia, Suicidal, Other - Risk Factors Known Risk Factors: Yes: Hypertension Vital Signs: Vital Signs Temperature 98.6 F 08/20/19 11:10 Pulse Rate 82 08/20/19 12:25 Respiratory Rate 28 H 08/20/19 12:25 Blood Pressure 112/68 08/20/19 12:25 O2 Sat by Pulse Oximetry (%) 93 L 08/20/19 12:25 Constitutional: Yes: No Distress, Calm Eyes: Yes: Conjunctiva Clear, EOM Intact Respiratory: Yes: Other (decreased breath sounds left base) Gastrointestinal: Yes: Soft Cardiovascular: Yes: Regular Rate and Rhythm JVD: No Carotid Bruit: No Heart Sounds: Yes: S1, S2 Edema: Yes Edema: LLE: 1+, RLE: 1+ Peripheral Pulses WNL: Yes Neurological: Yes: Alert, Oriented - Other Data Labs, Other Data: CBC, BMP 08/20/19 11:53 08/20/19 11:53 INR, PTT INR 1.96 (0.83-1.09) H 08/20/19 11:53 Troponin, BNP 08/20/19 11:53 Troponin I < 0.02 Troponin, BNP 08/20/19 11:53 Troponin I < 0.02 Laboratory Tests 08/20/19 08/20/19 08/20/19 11:53 11:53 11:53 WBC 15.6 H Hgb 12.9 Plt Count 363 D Sodium 138 Potassium 3.9 Creatinine 0.8 Calcium 9.2 Magnesium 2.2 Total Bilirubin 0.5 Creatine Kinase 46 Troponin I < 0.02 Echo: Pending Imaging - Results X-ray: Image Reviewed EKG: Image Reviewed (cardiomegaly, left effusion, cannot r/o left lower lobe infiltrate) Assessment/Plan IMP: Recent PNA/sepsis s/p course abx, on steroid taper LE DVT recently diagnosed on admission for above ([facility], discharged one week ago) Persistent cough, severe pleuritic chest pain: residual PNA/ ?pleural effusion/ r/o pulmonary embolism Small to moderate pericardial effusion, also potential source of chest pain. REC: 1. CTA chest stat to r/o pleural effusion and/or pulmonary embolism 2. Supplimental O2 3. Tele 4. Hold BP meds for now as BP has been low/normal and Amlodipine held/ hold Lasix 5. ESR/CRP 6. Pulmonary Eval 7. Continue appropriate dose NOAC for DVT recently diagnosed, need to confirm if she can now be dropped to daily dose. 8. If CTA is unremarkable and feeling is that pain is purely due to pericardial effusion (ECG not suggestive pericarditis), would be very difficult to use high dose NSAIDS with NOAC as risk of bleeding is increased. Would try Colchicine low dose NSAID with PPI. Serial echos Based on my review of bedside study, pericardial effusion does not seem large and no evidence tamponade. F/u official full study
--- NOTE | 2019-08-20 15:33 | ECHO ---
Version: 1 Name: TEETEE OLSON Exam: Adult Echocardiogram Study Date: 08/20/2019, 2:23 PM Age: 69 Years MMode/2D Measurements & Calculations IVSd: 0.90 cm LVIDs: 3.0 cm LVIDd: 4.5 cm LVPWd: 1.12 cm Ao root diam: 2.9 cm LA dimension: 2.9 cm Doppler Measurements & Calculations MV E max mayo: 59.7 cm/sec Med E/e': 8.7 MV A max mayo: 56.3 cm/sec Med Peak E' Mayo: 6.9 cm/sec MV E/A: 1.06 Lat E/e': 8.4 Lat Peak E' Mayo: 7.1 cm/sec Ao max P.6 mmHg LV V1 mean: 67.4 cm/sec Ao mean P.0 mmHg LV V1 mean P.21 mmHg Ao V2 max: 137.1 cm/sec Left Ventricle The left ventricular size, thickness and function are normal. Ejection Fraction = 60-65%. The transm itral spectral Doppler flow pattern is suggestive of impaired LV relaxation. Right Ventricle The right ventricle is normal in size and function. Atria Normal left and right atrial size and function. Mitral Valve The mitral valve is normal. There is trace mitral regurgitation. Tricuspid Valve The tricuspid valve is normal. There is mild tricuspid regurgitation. Aortic Valve The aortic valve is normal in structure and function. Pulmonic Valve The pulmonic valve leaflets are thin and pliable; valve motion is normal. Great Vessels The aortic root is normal size. Normal aortic arch, descending and ascending aorta. Pericardium/Pleura There is a mild pericardial effusion. Summary Statements The left ventricular size, thickness and function are normal Ejection Fraction = 60-65%. The transmitral spectral Doppler flow pattern is suggestive of impaired LV relaxation. The right ventricle is normal in size and function. Normal left and right atrial size and function. The mitral valve is normal. There is trace mitral regurgitation. The tricuspid valve is normal. There is mild tricuspid regurgitation. The aortic valve is normal in structure and function. The pulmonic valve leaflets are thin and pliable; valve motion is normal. The aortic root is normal size. Normal aortic arch, descending and ascending aorta There is a mild pericardial effusion. Jeff Oliveros 08/20/2019, 2:32 PM Ordering Physician: DAVIDE VILLALOBOS Referring Physician: DAVIDE VILLALOBOS Performed By: Ana Daniel
[2019-08-20] MEDS ORDERED: IBUPROFEN 400 MG TABLET (FP) PO STA (18:39)
[2019-08-20] MEDS ORDERED: IBUPROFEN 600 MG TABLET (FP) PO STA (18:39)
--- NOTE | 2019-08-20 19:04 | HP ---
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 Had a similiar episode one day prior lasting 1/2 day, 5/10 severity. Had shortness of breath in the cardio office. Patient was recently discharged from [facility] on 08/12/19 for septic PNA with hospital course also showing LLE DVT, UTI, thrush, vaginal candidiasis. Completed abx, discharged home with xarelto, and prednisone taper. Patient states that her LLE had been swollen since 2-3weeks prior to her [place] admission. Cardio office administered EKG that showed unchanged ST abn in the anterior precordial leads. ER course was notable for: (1) POCUS showing possible sm-mod pericardial effusion, norm IVC, Left pleural effusion (2) CXR showing possible Left retrocardica infiltrate vs pleural effusion (3) CTA chest neg for central PE, moderate pericardial effusion (4) Echo showing LVEF 60-65%, mild MR, mild pericardial effusion Recent Travel: denies PAST MEDICAL HISTORY: HTN, HLD, OA, Raynauds, CAD s/p cath 08/2010 showing a myocardial bridge PAST SURGICAL HISTORY: hysterectomy Social History: Smoking: denies Alcohol: denies Drugs: denies Allergies ciprofloxacin Adverse Reaction (Verified 08/20/19 11:18) HOME MEDICATIONS: Home Medications Medication Instructions Recorded Albuterol 0.083% Nebulizer Zulay 1 neb NEB Q4H PRN 08/20/19 [Ventolin 0.083%] Benzonatate [Tessalon Pearls -] 100 mg PO TID PRN 08/20/19 Furosemide [Lasix -] 40 mg PO DAILY 08/20/19 Ipratropium 0.02% Nebulizer 1 neb NEB QID PRN 08/20/19 [Atrovent] Metoprolol Succinate 25 mg PO ASDIR 08/20/19 Prednisone 5 mg PO ASDIR 08/20/19 Rivaroxaban [Xarelto] 15 mg PO DAILY 08/20/19 REVIEW OF SYSTEMS CONSTITUTIONAL: chills, 5lb weight loss Absent: fever, diaphoresis, generalized weakness, malaise, loss of appetite HEENT: intermittent chronic blurry vision Absent: rhinorrhea, nasal congestion, throat pain, throat swelling, difficulty swallowing, mouth swelling, ear pain, eye pain CARDIOVASCULAR: chronic intermittent chest pain Absent: syncope, palpitations, irregular heart rate, lightheadedness, peripheral edema RESPIRATORY: shortness of breath, nonproductive cough Absent: cough, wheezing, hemoptysis GASTROINTESTINAL: Absent: abdominal pain, abdominal distension, nausea, vomiting, diarrhea, constipation, melena, hematochezia GENITOURINARY: burning with urination, vaginal itching Absent: frequency, urgency, hesitancy, hematuria, flank pain MUSCULOSKELETAL: Absent: myalgia, arthralgia, joint swelling, back pain, neck pain SKIN: vaginal itching Absent: pallor HEMATOLOGIC/IMMUNOLOGIC: Absent: easy bleeding, easy bruising, lymphadenopathy, ENDOCRINE: Absent: unexplained weight gain, unexplained weight loss NEUROLOGIC: Absent: headache, focal weakness or paresthesias, dizziness, unsteady gait, seizure, mental status changes, bladder or bowel incontinence PHYSICAL EXAMINATION Vital Signs - 24 hr 08/20/19 08/20/19 08/20/19 11:10 12:25 15:25 Temperature 98.6 F Pulse Rate 86 Pulse Rate [ 82 87 Apical] Respiratory 20 28 H 18 Rate Blood Pressure 113/75 Blood Pressure 112/68 125/79 [Right Arm] O2 Sat by Pulse 93 L 93 L 98 Oximetry (%) GENERAL: Awake, alert, and fully oriented, in no acute distress. HEAD: NC/AT EYES: extraocular movements intact, sclera anicteric, conjunctiva clear. EARS, NOSE, THROAT: Ears normal, nares patent. Moist mucous membranes. NECK: Normal range of motion, supple without lymphadenopathy, JVD, or masses. nasal cannula in place LUNGS: Breath sounds equal, clear to auscultation bilaterally. No wheezes, and no crackles. No accessory muscle use. HEART: Regular rate and rhythm, normal S1 and S2 without murmur, rub or gallop. ABDOMEN: multiple ecchymotic areas at site of heparin injections; Soft, nontender, not distended, no guarding, no rebound, no masses. UPPER EXTREMITIES: 2+ pulses, warm, well-perfused. No cyanosis. No peripheral edema. LOWER EXTREMITIES: 2+ DP pulses, warm, well-perfused. No calf tenderness. No peripheral edema. NEUROLOGICAL: Normal speech. Grossly normal movement of BL UE PSYCHIATRIC: Cooperative. Good eye contact. Appropriate mood and affect. SKIN: Warm, dry, normal turgor, no rashes or lesions noted, normal capillary refill. Laboratory Results - last 24 hr 08/20/19 08/20/19 08/20/19 11:53 11:53 11:53 WBC 15.6 H RBC 4.53 Hgb 12.9 Hct 38.9 MCV 85.9 MCH 28.4 MCHC 33.1 RDW 14.0 Plt Count 363 D MPV 9.0 Absolute Neuts (auto) 14.3 H Neutrophils % 91.3 H D Neutrophils % (Manual) 90.0 H Band Neutrophils % 0.0 Lymphocytes % 4.1 L D Lymphocytes % (Manual) 3.0 L Monocytes % 4.5 Monocytes % (Manual) 7 Eosinophils % 0.0 D Eosinophils % (Manual) 0.0 Basophils % 0.1 Basophils % (Manual) 0.0 Myelocytes % (Man) 0 Promyelocytes % (Man) 0 Blast Cells % (Manual) 0 Nucleated RBC % 0 Metamyelocytes 0 Platelet Estimate Normal PT with INR 23.30 H INR 1.96 H PTT (Actin FS) 36.1 Sodium Potassium Chloride Carbon Dioxide Anion Gap BUN Creatinine Est GFR (CKD-EPI)AfAm Est GFR (CKD-EPI)NonAf Random Glucose Calcium Magnesium Total Bilirubin AST ALT Alkaline Phosphatase Creatine Kinase 46 Troponin I < 0.02 Total Protein Albumin Urine Color Urine Appearance Urine pH Ur Specific Dalton Urine Protein Urine Glucose (UA) Urine Ketones Urine Blood Urine Nitrite Urine Bilirubin Urine Urobilinogen Ur Leukocyte Esterase 08/20/19 08/20/19 11:53 13:10 WBC RBC Hgb Hct MCV MCH MCHC RDW Plt Count MPV Absolute Neuts (auto) Neutrophils % Neutrophils % (Manual) Band Neutrophils % Lymphocytes % Lymphocytes % (Manual) Monocytes % Monocytes % (Manual) Eosinophils % Eosinophils % (Manual) Basophils % Basophils % (Manual) Myelocytes % (Man) Promyelocytes % (Man) Blast Cells % (Manual) Nucleated RBC % Metamyelocytes Platelet Estimate PT with INR INR PTT (Actin FS) Sodium 138 Potassium 3.9 Chloride 100 Carbon Dioxide 29 Anion Gap 10 BUN 19.2 H Creatinine 0.8 Est GFR (CKD-EPI)AfAm 87.18 Est GFR (CKD-EPI)NonAf 75.22 Random Glucose 121 H Calcium 9.2 Magnesium 2.2 Total Bilirubin 0.5 AST 14 L ALT 34 Alkaline Phosphatase 113 Creatine Kinase Troponin I Total Protein 7.4 Albumin 3.5 Urine Color Yellow Urine Appearance Clear Urine pH 7.0 Ur Specific Dalton 1.005 L Urine Protein Negative Urine Glucose (UA) Negative Urine Ketones Negative Urine Blood Negative Urine Nitrite Negative Urine Bilirubin Negative Urine Urobilinogen 0.2 Ur Leukocyte Esterase Negative ASSESSMENT/PLAN: 69F w/ pmh of HTN, HLD, OA, Raynauds, CAD s/p cath 08/2010 showing a myocardial bridge 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 W/u ruled out a central PE but possible acute pericarditis #acute pericarditis >troponin <0.02 >EKG: abn STs in anterior pericardial leads -- unchanged from past EKGs >Echo showing LVEF 60-65%, mild MR, mild pericardial effusion -appreicate cardio recs: --Hold BP meds for now as BP has been low/normal and Amlodipine held/ hold Lasix --ESR/CRP --Pulmonary Eval --Continue appropriate dose NOAC for DVT recently diagnosed, need to confirm if she can now be dropped to daily dose. --If CTA is unremarkable and feeling is that pain is purely due to pericardial effusion (ECG not suggestive pericarditis), would be very difficult to use high dose NSAIDS with NOAC as risk of bleeding is increased. Would try Colchicine low dose NSAID with PPI. --Serial echos #pericardial effusion >CTA chest neg for central PE, moderate pericardial effusion - serial echo -- as per cardio #mild hypoxia -- unlikely PE >ED 93% on RA, reported ~mid 80s in office - supplemental O2 as needed - fu Pulm consult - cw prednisone taper #vaginal candidasis and thrush - fluconazole 150mg once - nystatin swish and swallow #HTN - cw holding home BP meds -- as per cardio #DVT - cw xarelto - encourage ambulation #FEN -low salt diet -replete lytes as necessary Dispo: - admit to tele Family Medical History Family Hx Cancer: Father (lung Ca) Family Hx Cardiac Disorders: Son (HTN, HLD) Family Hx Diabetes: Mother, Son Family Hx Gastrointestinal Disorder: Son Other Family History: Daughter with CREST, Lupus Problem List - Problem (1) Pericardial effusion without cardiac tamponade Code(s): I31.3 - PERICARDIAL EFFUSION (NONINFLAMMATORY) (2) SOB (shortness of breath) Code(s): R06.02 - SHORTNESS OF BREATH (3) Hyperlipidemia Code(s): E78.5 - HYPERLIPIDEMIA, UNSPECIFIED (4) Hypertension Code(s): I10 - ESSENTIAL (PRIMARY) HYPERTENSION Visit type - Emergency Visit Emergency Visit: Yes ED Registration Date: 08/20/19 Care time: The patient presented to the Emergency Department on the above date and was hospitalized for further evaluation of their emergent condition. - New Patient This patient is new to me today: Yes Date on this admission: 08/20/19 - Critical Care Critical Care patient: No ATTENDING PHYSICIAN STATEMENT I saw and evaluated the patient. I reviewed the resident's note and discussed the case with the resident. I agree with the resident's findings and plan as documented. SUBJECTIVE: OBJECTIVE: ASSESSMENT AND PLAN:
[2019-08-20] MEDS ORDERED: IBUPROFEN 400 MG TABLET (FP) PO ONE (19:14)
[2019-08-20] MEDS ORDERED: PANTOPRAZOLE 40 MG TABLET (FP) ONE (19:14)
[2019-08-20] MEDS: PANTOPRAZOLE 40 MG TABLET (FP) PO SCH (19:21)
[2019-08-20] MEDS ORDERED: NYSTATIN 500,000 UNITS/5 ML SUSPENSION PO ONE (19:54)
[2019-08-20] MEDS ORDERED: FLUCONAZOLE 150 MG TABLET PO ONE ×2 (19:54→22:15)
--- NOTE | 2019-08-20 20:11 | PN ---
Teaching Attending Note Name of Resident: [place] ATTENDING PHYSICIAN STATEMENT I saw and evaluated the patient. I reviewed the resident's note and discussed the case with the resident. I agree with the resident's findings and plan as documented. SUBJECTIVE: Complains of intermittent L sided sharp chest pain. No lightheadedness. No fever/chills/cough/sputum/hemoptysis. OBJECTIVE: Afebrle, Hemodynamically Stable Last Vital Signs Temp Pulse Resp BP Pulse Ox 98.6 F 78 20 114/78 99 08/20/19 11:10 08/20/19 18:25 08/20/19 18:25 08/20/19 18:25 08/20/19 18:25 HEENT - Atrauamtic, Nromocephalic. Heart - S1, S2, RRR Lungs - clear to auscultation Abdomen - Soft, non-tender. Bowel Sounds normal. Extremities - No calf tenderness Neuro - AAOx 3. tone/Power normal all 4 extremities. Laboratory Results - last 24 hr 08/20/19 08/20/19 08/20/19 11:53 11:53 11:53 WBC 15.6 H RBC 4.53 Hgb 12.9 Hct 38.9 MCV 85.9 MCH 28.4 MCHC 33.1 RDW 14.0 Plt Count 363 D MPV 9.0 Absolute Neuts (auto) 14.3 H Neutrophils % 91.3 H D Neutrophils % (Manual) 90.0 H Band Neutrophils % 0.0 Lymphocytes % 4.1 L D Lymphocytes % (Manual) 3.0 L Monocytes % 4.5 Monocytes % (Manual) 7 Eosinophils % 0.0 D Eosinophils % (Manual) 0.0 Basophils % 0.1 Basophils % (Manual) 0.0 Myelocytes % (Man) 0 Promyelocytes % (Man) 0 Blast Cells % (Manual) 0 Nucleated RBC % 0 Metamyelocytes 0 Platelet Estimate Normal PT with INR 23.30 H INR 1.96 H PTT (Actin FS) 36.1 Sodium Potassium Chloride Carbon Dioxide Anion Gap BUN Creatinine Est GFR (CKD-EPI)AfAm Est GFR (CKD-EPI)NonAf Random Glucose Calcium Magnesium Total Bilirubin AST ALT Alkaline Phosphatase Creatine Kinase 46 Troponin I < 0.02 Total Protein Albumin Urine Color Urine Appearance Urine pH Ur Specific [place] Urine Protein Urine Glucose (UA) Urine Ketones Urine Blood Urine Nitrite Urine Bilirubin Urine Urobilinogen Ur Leukocyte Esterase 09/24/19 09/24/19 11:53 13:10 WBC RBC Hgb Hct MCV MCH MCHC RDW Plt Count MPV Absolute Neuts (auto) Neutrophils % Neutrophils % (Manual) Band Neutrophils % Lymphocytes % Lymphocytes % (Manual) Monocytes % Monocytes % (Manual) Eosinophils % Eosinophils % (Manual) Basophils % Basophils % (Manual) Myelocytes % (Man) Promyelocytes % (Man) Blast Cells % (Manual) Nucleated RBC % Metamyelocytes Platelet Estimate PT with INR INR PTT (Actin FS) Sodium 138 Potassium 3.9 Chloride 100 Carbon Dioxide 29 Anion Gap 10 BUN 19.2 H Creatinine 0.8 Est GFR (CKD-EPI)AfAm 87.18 Est GFR (CKD-EPI)NonAf 75.22 Random Glucose 121 H Calcium 9.2 Magnesium 2.2 Total Bilirubin 0.5 AST 14 L ALT 34 Alkaline Phosphatase 113 Creatine Kinase Troponin I Total Protein 7.4 Albumin 3.5 Urine Color Yellow Urine Appearance Clear Urine pH 7.0 Ur Specific [place] 1.005 L Urine Protein Negative Urine Glucose (UA) Negative Urine Ketones Negative Urine Blood Negative Urine Nitrite Negative Urine Bilirubin Negative Urine Urobilinogen 0.2 Ur Leukocyte Esterase Negative Current Medications Generic Name Dose Route Start Last Admin Trade Name Freq PRN Reason Stop Dose Admin Colchicine 0.6 mg 08/21/19 10:00 Colcrys PO DAILY [facility] Pantoprazole Sodium 40 mg 08/20/19 18:45 08/20/19 19:21 Protonix - PO 40 mg DAILY ELIE Administration Rivaroxaban 15 mg 08/20/19 22:00 Xarelto PO BIDWM [facility] Home Medications Medication Instructions Recorded Albuterol 0.083% Nebulizer Zulay 1 neb NEB Q4H PRN 08/20/19 [Ventolin 0.083%] Benzonatate [Tessalon Pearls -] 100 mg PO TID PRN 08/20/19 Furosemide [Lasix -] 40 mg PO DAILY 08/20/19 Ipratropium 0.02% Nebulizer 1 neb NEB QID PRN 08/20/19 [Atrovent] Metoprolol Succinate 25 mg PO ASDIR 08/20/19 Prednisone 5 mg PO ASDIR 08/20/19 Rivaroxaban [Xarelto] 15 mg PO DAILY 08/20/19 ASSESSMENT AND PLAN: 69 year old female with history of HTN, HLD, OA, CAD s/p cath 2009 showing a myocardial bridge sent in from Dr. White's office with complaints of chest pain and shortness of breath. She was recently discharged from [facility] 08/12 after being treated for Pneumonia/LLE DVT/UTI/Vaginal Candidiasis with course of abx (completed), Xarelto for DVT, and Prednisone taper. 1. Acute Paricarditis with Pericardial Effusion ECG - ST changes anterolateral leads (old), Troponin neg Echo - EF 60-65%, impaired LV relaxation, mild effusion CTA chest - limited exam, no PE. Moderate pericardial effusion Evaluated by Cardiology - no signs of tamponade. For initiation of Pericarditis treatment with NSAIDs and Colchicine. BP meds held for now including Lasix and Metoprolol. Further management as per Cardio. 2. Vaginal Candidiasis and thrush - Nystatin swish/swallow and Diflucan 150mg x 1. 3. HTN - Metoprolol held for now. Resumption of BB as per Cardio. 4. Hx LLE DVT - on Xarelto 5. Leukocytosis - sec to Prednisone. No signs of active infection. DVT Px - on Xarelto GI Px - PPI.
[2019-08-20] MEDS ORDERED: IBUPROFEN 200 MG TABLET PO STA (20:19)
[2019-08-20] MEDS ORDERED: IBUPROFEN 200 MG TABLET PO SCH (20:30)
[2019-08-20] MEDS: RIVAROXABAN 15 MG TABLET PO SCH (23:31)
[2019-08-21 02:58] VITALS: BMI 30.1
[2019-08-21 06:34] LABS: BLOOD UREA NITROGEN 26.8 mg/dL (7-18); CREATININE 0.8 mg/dL (0.55-1.3); MAGNESIUM 2.3 mg/dL (1.8-2.4); PHOSPHOROUS 3.9 mg/dL (2.5-4.9); POTASSIUM 3.8 mmol/L (3.5-5.1)
[2019-08-21] MEDS: IBUPROFEN 200 MG TABLET PO SCH ×3 (06:57→17:31)
[2019-08-21] MEDS: NYSTATIN 500,000 UNITS/5 ML SUSPENSION PO SCH ×3 (06:57→17:30)
[2019-08-21] MEDS ORDERED: SODIUM CHLORIDE 1,000 ML IV SCH (07:15)
[2019-08-21] MEDS ORDERED: PT OWN MED DRAWER 7, Y5N ONE ×3 (08:09→09:17)
--- NOTE | 2019-08-21 09:06 | PN ---
Progress Note (short form) - Note Progress Note: Thoracic Surgery: Images reviewed. Case discussed with Dr. White. I see small to moderate pericardial effusion. Echo shows no hemodynamic effects. Agree with plan for repeat echo. Etiology could be inflammatory/infectious, rheumatologic, neoplastic, or idiopathic. Will follow.
[2019-08-21] MEDS: metoPROLOL SUCCINATE 25 MG TAB.SR.24H (FP) PO SCH (09:15)
[2019-08-21] MEDS: COLCHICINE 0.6 MG CAP PO SCH (09:15)
[2019-08-21] MEDS: PANTOPRAZOLE 40 MG TABLET (FP) PO SCH (09:15)
[2019-08-21] MEDS: RIVAROXABAN 15 MG TABLET PO SCH ×2 (09:17→17:30)
--- NOTE | 2019-08-21 09:26 | RAPID ---
Physical Examination Vital Signs: Vital Signs Temperature 97.8 F 08/21/19 05:00 Pulse Rate 110 H 08/21/19 09:05 Respiratory Rate 22 H 08/21/19 09:05 Blood Pressure 154/87 08/21/19 09:05 O2 Sat by Pulse Oximetry (%) 99 08/21/19 02:59 Labs: CBC, BMP 08/21/19 05:10 Rapid Response - Rapid Response Assessment: A rapid response was called at 9am and the rapid response team responded immediately. Ms. Barry was having chest pains, and stating that she felt her heart rate was beating too fast. By the time the rapid team arrived the patient stated her chest pains had resolved and she was feeling better and that her sypmtoms had scared her. On arrival the patients BP was 154/87, P 100, and SPo2 was 99% on 2LNC. Per the nurse, before arrival of the rapid team the patient has SBPs in the 170s. After reviewing the chart we discovered the patient's metoprolol had been held as part of her medical evaluation. The patient was in mild distress stating she felt worried about her heart rate. On physical exam her lungs were clear to auscultation bilaterally and her heart was tachycardic without appreciable murmur. She was AOx4. An EKG was done which showed sinus tachycardia, but no new EKG changes. We also ordered troponins and metoprolol 25mg to help with her blood pressure. The patient did not require any morphine for her chest pains and they resolved on their own. The primary team replied immediately with the rapid response team and resumed care of the patient.
[2019-08-21] MEDS ORDERED: predniSONE 10 MG TABLET (UD) PO SCH (10:00)
[2019-08-21] MEDS ORDERED: predniSONE 5 MG TABLET (UD) PO SCH (10:00)
[2019-08-21 10:41] LABS: BASO % 0.4 % (0-2.0); EOS % 0.3 % (0-4.5); HEMATOCRIT 34.2 % (32.4-45.2); HEMOGLOBIN 11.3 GM/dL (10.7-15.3); LYMPH % 20.8 % (8-40); MCH 28.4 pg (25.7-33.7); MCHC 33.1 g/dl (32.0-36.0); MEAN CELL VOLUME 85.9 fl (80-96); MEAN PLT VOLUME 9.1 fl (7.5-11.1); MONO % 10.9 % (3.8-10.2); NEUT % 67.6 % (42.8-82.8); PLATELET COUNT 302 K/MM3 (134-434); RBC 3.98 M/mm3 (3.60-5.2); WHITE BLOOD COUNT 10.8 K/mm3 (4.0-10.0)
[2019-08-21] MEDS ORDERED: METOPROLOL TARTRATE 5 MG/5 ML VIAL IVPUSH PRN (10:48)
--- NOTE | 2019-08-21 10:52 | PN ---
Progress Note (short form) - Note Progress Note: s: felt well overnight, this morning had episode of palpitations, dyspnea lasting a few min. tele showed new afib with RVR which resolved. no chest pain , dizziness currently no cigs Current Medications Colchicine (Colcrys) 0.6 mg PO DAILY [facility] Last Admin: 08/21/19 09:15 Dose: 0.6 mg Sodium Chloride (Normal Saline -) 1,000 mls @ 100 mls/hr IV ASDIR [facility] Last Admin: 08/21/19 08:21 Dose: 100 mls/hr Ibuprofen (Advil -) 200 mg PO Q6HPO [facility] Last Admin: 08/21/19 06:57 Dose: Not Given Metoprolol Succinate (Toprol Xl -) 25 mg PO DAILY [facility] Last Admin: 08/21/19 09:15 Dose: 25 mg Nystatin (Nystatin Oral Suspension -) 500,000 units PO Q6HPO [facility] Last Admin: 08/21/19 06:57 Dose: 500,000 units Pantoprazole Sodium (Protonix -) 40 mg PO DAILY [facility] Last Admin: 08/21/19 09:15 Dose: 40 mg Rivaroxaban (Xarelto) 15 mg PO BIDWM [facility] Last Admin: 08/21/19 09:17 Dose: 15 mg Vital Signs Period Temp Pulse Resp BP Sys/Stephens Pulse Ox Last 24 Hr 97.8 F-98.7 F 65-110 18-28 95-154/61-87 93-99 Constitutional: Yes: No Distress, Calm Eyes: Yes: Conjunctiva Clear, EOM Intact Respiratory: Yes: Other (decreased breath sounds left base) Gastrointestinal: Yes: Soft Cardiovascular: Yes: Regular Rate and Rhythm JVD: No Carotid Bruit: No Heart Sounds: Yes: S1, S2 Edema: Yes Edema: LLE: 1+, RLE: 1+ Neurological: Yes: Alert, Oriented no jaundice, diaphoresis not agitated Imaging - Results X-ray: Image Reviewed EKG: Image Reviewed (cardiomegaly, left effusion, cannot r/o left lower lobe infiltrate) echo 07/2019 nl LV function, impaired relaxation, RV nl, tr MR, mild TR, mild pericardial effusion tele: sinus ->afib with RVR 140s-160s, now back in sinus Assessment/Plan IMP: Recent PNA/sepsis s/p course abx, on steroid taper LE DVT recently diagnosed on admission for above ([facility], discharged one week ago) Persistent cough, severe pleuritic chest pain Small pericardial effusion, atypical pericarditis Atrial fibrillation with RVR REC: - CTA chest no PE, PNA - echo with small pericardial effusion - continue treating for atypical pericarditis - on ibuprofen, colchine with PPI for GI prophylaxis - evaluated by CT surgery - no intervention at this point - new afib with RVR - on xarelto for DVT, metoprolol succinate started this AM, continue - monitoring on tele - home BP meds, lasix held for low/normal BP, monitor trend
--- NOTE | 2019-08-21 11:03 | EKG ---
Test Reason : Blood Pressure : / mmHG Vent. Rate : 103 BPM Atrial Rate : 103 BPM P-R Int : 170 ms QRS Dur : 098 ms QT Int : 312 ms P-R-T Axes : 010 003 176 degrees QTc Int : 408 ms SINUS TACHYCARDIA INFERIOR INFARCT (CITED ON OR BEFORE 12-SEP-2010) ABNORMAL ECG WHEN COMPARED WITH ECG OF 20-AUG-2019 11:10, T WAVE INVERSION MORE EVIDENT IN LATERAL LEADS Confirmed by FLOYD ALONZO, REY ([id number]) on 08/21/2019 11:02:33 AM Referred By: Confirmed By:REY BARRIENTOS MD
--- NOTE | 2019-08-21 11:45 | CONSULT ---
Consult Consult Specialty:: Pulmonology Referred by:: Dr Dyer Reason for Consultation:: Hypoxia, recent PNA - History of Present Illness Chief Complaint: L sided chest painand SOB x 1 day History of Present Illness: Pt is a 69F with PMHx of HTN, HLD, OA, chronic bronchitis, Raynauds, CAD s/p cath 08/2010 showing a myocardial bridge sent in from her top cager ( Christopher) for severe Left-sided chest pain x 1 day. Pt reported intermittent severe 7/10 L sided chest pain at rest, radiating from LSB to apex that lasted about 5mins. Worse with breathing, with associated SOB. No change with positioning, no known relieving or aggravating factors. No fevers, no sore throat. Pt was however recently admitted in [facility] for a week for Sepsis secondary to PNA and hypotension, and diagnosed with a new LLE DVT for LLE swelling. Prior to the PNA diagnosis, pt was treated for vaginal itching and UTI. She completed AB for PNA in the hospital but was discharged on steroids and xarelto. No prior hx of clots, no recent cancer diagnosis, surgery or immobilization noted. No recent travels, no sick contacts. Pt reports yearly pneumonias around July and treatment for chronic bronchitis in past. Pt follows Dr Brown. Pt is up to date and has had negative colonsocopy, mammograms and PNA vaccine in past. Never smoked but second hand smoker from her until his 7 years ago. Point of care US in ED showed-Small to moderate pericardial effusion, with nl IVC, and pleural effusion. CXR- L retrocardiac infiltrate vs pleural effusion. CTA - Showed no central PE, moderate pericardial effusion ECHO-LVEF- 60-65%, mild MR, mild pericardial effusion Pt was noted to have pericardial effusion and is being followed by cardiology. Was on outpatient steroids, now on low dose NSAIDS and colchicine. This am, rapid response was called for CP and SOB, EKG at the time showed sinus tachycardia When I saw the patient this am, she said the chest pain was improved to 3/10, with no acute SOB. 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, denies exposure to toxic fumes Never smoked, exposed to second hand smoke from who is a current everyday smoker Social drinker - History Source History Provided By: Patient, Family Member Limitations to Obtaining History: No Limitations - Past Medical History Cardio/Vascular: Yes: HTN, Hyperlipdemia, Other (chronic diastolic dysfx, LAD myocardial bridge) Gastrointestinal: No: Ascites, Cancer, Constipation, Crohn's Disease, Diverticulitis, Diverticulosis, Esophageal Varices, Gastritis, GERD, GI Bleed, Hemorrhoids, Hiatal Hernia, Inflamatory Bowel Disease, Irritable Bowel Disease, Pancreatitis, Peptic Ulcer Disease, Ulcerative Colitis, Other Hepatobiliary: No: Cirrhosis, Cholelithiasis, Cholecystitis, Choledocholithiasis , Hepatitis A, Hepatitis B, Hepatitis C, Other Renal/: No: Renal Failure, Renal Inusuff, BPH, Cancer, Hematuria, Hemodialysis , Neurogenic Bladder, Renal Calculi, UTI, Other Infectious Disease: No: AIDS, C-Diff, Herpes Zoster, HIV, MRSA, STD's, Tuberculosis, VREF, Other Psych: No: Addictions, Anxiety, Bipolar, Depression, Panic, Psychosis, Schizophrenia, Other Musculoskeletal: No: Bursitis, Chronic low back pain, Hemiparesis, Hemiplegia, Osteoarthritis, Paraplegia, Other Endocrine: No: [place]'s Disease, [place]'s Disease, Diabetes Insipidus, Diabetes Mellitus, Hyperparathyroidism, Hyperthyroidism, Hypothyroidism, Osteopenia, SIADH, Other Dermatology: No: Basal Cell, Cellulitis, Eczema, Melanoma, Psoriasis, Squamous Cell, Other - Past Surgical History Past Surgical History: No: None, AAA Repair, AICD, Amputation, Appendectomy, Arthrosocopy, AV Fistula/Graft, Bariatric Surgery, Breast Biopsy, Bypass, CABG, Carotid Endarterectomy, Cataract Removal, Cholecystectomy, Colectomy, Colonoscopy, Colostomy, Craniotomy, , Cystectomy, Hernia Repair, Hysterectomy, Ileal Conduit, Ileosotomy, Joint Replacement, Kidney Transplant, Laminectomy, Liver Transplant, Mastectomy, Nephrectomy, Oopherectomy, Orchiectomy, Permanent Pacemaker, Prostatectomy, Splenectomy, Stent, Thoracotomy , TURP, Tonsillectomy, Tubal Ligation, Upper Endoscopy, Valve Replacement, Vasectomy, Vein Stripping/Ligation - Alcohol/Substance Use Hx Alcohol Use: No - Smoking History Smoking history: Never smoked Have you smoked in the past 12 months: No - Social History ADL: Independent History of Recent Travel: No Home Medications - Allergies Allergies/Adverse Reactions: Allergies Allergy/AdvReac Type Severity Reaction Status Date / Time ciprofloxacin AdvReac Verified 08/20/19 11:18 - Home Medications Home Medications: Ambulatory Orders Albuterol 0.083% Nebulizer Zulay [Ventolin 0.083%] 1 neb NEB Q4H PRN 08/20/19 Benzonatate [Tessalon Pearls -] 100 mg PO TID PRN 08/20/19 Furosemide [Lasix -] 40 mg PO DAILY 08/20/19 Ipratropium 0.02% Nebulizer [Atrovent] 1 neb NEB QID PRN 08/20/19 Metoprolol Succinate 25 mg PO ASDIR 08/20/19 Prednisone 5 mg PO ASDIR 08/20/19 Rivaroxaban [Xarelto] 15 mg PO DAILY 08/20/19 Review of Systems - Review of Systems Constitutional: denies: Chills, Diaphoresis, Fever, Loss of Appetite HENT: denies: Difficult Swallowing Neck: denies: Pain on Movement, Stiffness Cardiovascular: reports: Chest Pain, Shortness of Breath. denies: Edema, Palpitations Gastrointestinal: denies: Abdominal Pain Genitourinary: denies: Burning, Hematuria Musculoskeletal: denies: Extremity Pain Neurological: denies: Change in LOC, Change in Speech, Confusion Physical Exam Vital Signs: Vital Signs Temperature 97.8 F 08/21/19 05:00 Pulse Rate 110 H 08/21/19 09:05 Respiratory Rate 22 H 08/21/19 09:05 Blood Pressure 154/87 08/21/19 09:05 O2 Sat by Pulse Oximetry (%) 99 08/21/19 02:59 Constitutional: Yes: Calm, Obese Eyes: Yes: Conjunctiva Clear HENT: No: Pharyngeal Erythema, Thrush Neck: Yes: Supple Cardiovascular: Yes: S1, S2 Respiratory: Yes: Rales Gastrointestinal: Yes: Normal Bowel Sounds, Soft Musculoskeletal: No: Joint Stiffness, Joint Swelling, Muscle Pain, Muscle Weakness Edema: No Integumentary: Yes: Bruising Neurological: Yes: Alert, Oriented. No: Aphasia, Dysarthria, Tremors ...Motor Strength: WNL Psychiatric: Yes: Alert, Oriented Labs: CBC, BMP 08/21/19 05:10 08/21/19 05:10 Imaging - Results Chest X-ray: Report Reviewed (L retrocardiac infiltrate, pleural effusion,), Image Reviewed Cat Scan: Report Reviewed (No PE , moderate pericardial effusion.), Image Reviewed Ultrasound: Report Reviewed (Point of care US-Small to mod pericardiac effusion , nl IVC, L pleural effusion) Other: Report Reviewed (ECHO: LVEF 60-65%, mild MR, mild pericardial effusion) Assessment/Plan Ambulatory Orders Albuterol 0.083% Nebulizer Zulay [Ventolin 0.083%] 1 neb NEB Q4H PRN 08/20/19 Benzonatate [Tessalon Pearls -] 100 mg PO TID PRN 08/20/19 Furosemide [Lasix -] 40 mg PO DAILY 08/20/19 Ipratropium 0.02% Nebulizer [Atrovent] 1 neb NEB QID PRN 08/20/19 Metoprolol Succinate 25 mg PO ASDIR 08/20/19 Prednisone 5 mg PO ASDIR 08/20/19 Rivaroxaban [Xarelto] 15 mg PO DAILY 08/20/19 Current Medications Colchicine (Colcrys) 0.6 mg PO DAILY [facility] Last Admin: 08/21/19 09:15 Dose: 0.6 mg Sodium Chloride (Normal Saline -) 1,000 mls @ 100 mls/hr IV ASDIR [facility] Last Admin: 08/21/19 08:21 Dose: 100 mls/hr Ibuprofen (Advil -) 200 mg PO Q6HPO [facility] Last Admin: 08/21/19 11:43 Dose: 200 mg Metoprolol Succinate (Toprol Xl -) 25 mg PO DAILY [facility] Last Admin: 08/21/19 09:15 Dose: 25 mg Metoprolol Tartrate (Lopressor Injection -) 5 mg IVPUSH Q4H PRN PRN Reason: TACHYCARDIA Nystatin (Nystatin Oral Suspension -) 500,000 units PO Q6HPO [facility] Last Admin: 08/21/19 11:43 Dose: 500,000 units Pantoprazole Sodium (Protonix -) 40 mg PO DAILY [facility] Last Admin: 08/21/19 09:15 Dose: 40 mg Rivaroxaban (Xarelto) 15 mg PO BIDWM [facility] Last Admin: 08/21/19 09:17 Dose: 15 mg Assessment/Plan: Pt is a 69F with PMHx of HTN, HLD, OA, chronic bronchitis, Raynauds, CAD s/p cath 08/2010 showing a myocardial bridge sent in from her top cager ( Christopher) for severe Left-sided chest pain x 1 day. Pt reported intermittent severe 7/10 L sided chest pain at rest, radiating from LSB to apex that lasted about 5mins found to have pericardial effusion HTN, HLD, OA, chronic bronchitis, Raynauds, CAD s/p cath 08/2010 showing a myocardial bridge Vaginal candidiasis Recent UTI Recent hospitalization for sepsis Recent steroid use Left-sided chest pain pericardial effusion DVT recurrent PNA Plan: Acute pericardial effusion, unclear etiology, could be viral, bacterial, inflammatory, malignant, unlikely uremic Pt with hx of raynaud's no other autoimmune/inflammatory conditions noted, may benefit from outpt evaluation for inflammation Recent unprovoked DVT, patient may benefit from hypercoagulability work up-Dr Russell consulted Pt reports being up to date on screens Will continue colchicine per cards Cont low dose NSAIDS per cards Cont xarelto Would need interval echo for follow up Other mx per primary team D/W Dr Felisa Hernandez PGY 3 Visit type - Emergency Visit Emergency Visit: Yes ED Registration Date: 08/20/19 Care time: The patient presented to the Emergency Department on the above date and was hospitalized for further evaluation of their emergent condition. - New Patient This patient is new to me today: Yes Date on this admission: 08/21/19 - Critical Care Critical Care patient: No ATTENDING PHYSICIAN STATEMENT I saw and evaluated the patient. I reviewed the resident's note and discussed the case with the resident. I agree with the resident's findings and plan as documented. SUBJECTIVE: OBJECTIVE: ASSESSMENT AND PLAN:
--- NOTE | 2019-08-21 13:49 | PN ---
Physical Exam: SUBJECTIVE: Patient seen and examined OBJECTIVE: Vital Signs Period Temp Pulse Resp BP Sys/Stephens Pulse Ox Last 24 Hr 97.8 F-98.7 F 65-110 18-22 95-154/61-87 98-99 GENERAL: The patient is awake, alert, and fully oriented, in no acute distress. HEAD: Normal with no signs of trauma. EYES: PERRL, extraocular movements intact, sclera anicteric, conjunctiva clear. No ptosis. ENT: Ears normal, nares patent, oropharynx clear without exudates, moist mucous membranes. NECK: Trachea midline, full range of motion, supple. LUNGS: Breath sounds equal, clear to auscultation bilaterally, no wheezes, no crackles, no accessory muscle use. HEART: Regular rate and rhythm, S1, S2 without murmur, rub or gallop. ABDOMEN: Soft, nontender, nondistended, normoactive bowel sounds, no guarding, no rebound, no hepatosplenomegaly, no masses. EXTREMITIES: 2+ pulses, warm, well-perfused, no edema. NEUROLOGICAL: Cranial nerves II through XII grossly intact. Normal speech, gait not observed. PSYCH: Normal mood, normal affect. SKIN: Warm, dry, normal turgor, no rashes or lesions noted Laboratory Results - last 24 hr 08/20/19 08/21/19 08/21/19 11:53 05:10 05:10 WBC 10.8 H RBC 3.98 Hgb 11.3 Hct 34.2 MCV 85.9 MCH 28.4 MCHC 33.1 RDW 14.0 Plt Count 302 MPV 9.1 Absolute Neuts (auto) 7.3 Neutrophils % 67.6 D Neutrophils % (Manual) 90.0 H Band Neutrophils % 0.0 Lymphocytes % 20.8 D Lymphocytes % (Manual) 3.0 L Monocytes % 10.9 H D Monocytes % (Manual) 7 Eosinophils % 0.3 D Eosinophils % (Manual) 0.0 Basophils % 0.4 D Basophils % (Manual) 0.0 Myelocytes % (Man) 0 Promyelocytes % (Man) 0 Blast Cells % (Manual) 0 Nucleated RBC % 0 Metamyelocytes 0 Platelet Estimate Normal ESR Sodium 141 Potassium 3.8 Chloride 105 Carbon Dioxide 29 Anion Gap 7 L BUN 26.8 H Creatinine 0.8 Est GFR (CKD-EPI)AfAm 87.18 Est GFR (CKD-EPI)NonAf 75.22 Random Glucose 92 Calcium 9.0 Phosphorus 3.9 Magnesium 2.3 Creatine Kinase Troponin I C-Reactive Protein 8.8 H 08/21/19 08/21/19 05:10 09:14 WBC RBC Hgb Hct MCV MCH MCHC RDW Plt Count MPV Absolute Neuts (auto) Neutrophils % Neutrophils % (Manual) Band Neutrophils % Lymphocytes % Lymphocytes % (Manual) Monocytes % Monocytes % (Manual) Eosinophils % Eosinophils % (Manual) Basophils % Basophils % (Manual) Myelocytes % (Man) Promyelocytes % (Man) Blast Cells % (Manual) Nucleated RBC % Metamyelocytes Platelet Estimate ESR 34 H Sodium Potassium Chloride Carbon Dioxide Anion Gap BUN Creatinine Est GFR (CKD-EPI)AfAm Est GFR (CKD-EPI)NonAf Random Glucose Calcium Phosphorus Magnesium Creatine Kinase 30 Troponin I < 0.02 C-Reactive Protein Active Medications Generic Name Dose Route Start Last Admin Trade Name Freq PRN Reason Stop Dose Admin Colchicine 0.6 mg 08/21/19 10:00 08/21/19 09:15 Colcrys PO 0.6 mg DAILY ELIE Administration Sodium Chloride 1,000 mls @ 100 mls/hr 08/21/19 07:15 08/21/19 08:21 Normal Saline - IV 100 mls/hr ASDIR ELIE Administration Ibuprofen 200 mg 08/21/19 06:00 08/21/19 11:43 Advil - PO 200 mg Q6HPO ELIE Administration Metoprolol Succinate 25 mg 08/21/19 10:00 08/21/19 09:15 Toprol Xl - PO 25 mg DAILY ELIE Administration Metoprolol Tartrate 5 mg 08/21/19 10:48 Lopressor Injection - IVPUSH Q4H PRN TACHYCARDIA Nystatin 500,000 units 08/21/19 06:00 08/21/19 11:43 Nystatin Oral Suspension - PO 500,000 units Q6HPO ELIE Administration Pantoprazole Sodium 40 mg 08/20/19 18:45 08/21/19 09:15 Protonix - PO 40 mg DAILY ELIE Administration Rivaroxaban 15 mg 08/20/19 22:00 08/21/19 09:17 Xarelto PO 15 mg BIDWM ELIE Administration ASSESSMENT/PLAN: Problem List - Problems (1) Pericardial effusion without cardiac tamponade Code(s): I31.3 - PERICARDIAL EFFUSION (NONINFLAMMATORY) (2) SOB (shortness of breath) Code(s): R06.02 - SHORTNESS OF BREATH (3) Hyperlipidemia Code(s): E78.5 - HYPERLIPIDEMIA, UNSPECIFIED (4) Hypertension Code(s): I10 - ESSENTIAL (PRIMARY) HYPERTENSION ATTENDING PHYSICIAN STATEMENT I saw and evaluated the patient. I reviewed the resident's note and discussed the case with the resident. I agree with the resident's findings and plan as documented. SUBJECTIVE: OBJECTIVE: ASSESSMENT AND PLAN:
--- NOTE | 2019-08-21 13:56 | PN ---
Teaching Attending Note Name of Resident: Gayathri Hernandez ATTENDING PHYSICIAN STATEMENT I saw and evaluated the patient. I reviewed the resident's note and discussed the case with the resident. I agree with the resident's findings and plan as documented. PULMONARY IMP DYSPNEA PERICARDIAL EFFUSION RECENT PNEUMONIA DVT UNPROVOKED RAYNAUDS HTN ASHD MYOCARDIAL BRIDGE HLD PLAN MOTRIN/COLCHICINE SUPPLEMENTAL O2 F/U ECHO W/U FOR HYPERCOGULABLE STATE ESR AC DR PAGE Problem List - Problems (1) Pericardial effusion without cardiac tamponade Code(s): I31.3 - PERICARDIAL EFFUSION (NONINFLAMMATORY) (2) Pleuritic chest pain Code(s): R07.81 - PLEURODYNIA (3) SOB (shortness of breath) Code(s): R06.02 - SHORTNESS OF BREATH (4) Chest pain Code(s): R07.9 - CHEST PAIN, UNSPECIFIED (5) Cough Code(s): R05 - COUGH (6) Generalized weakness Code(s): R53.1 - WEAKNESS (7) Heart failure, diastolic, with acute decompensation Code(s): I50.33 - ACUTE ON CHRONIC DIASTOLIC (CONGESTIVE) HEART FAILURE
--- NOTE | 2019-08-21 14:14 | PN ---
Teaching Attending Note Name of Resident: [place] ATTENDING PHYSICIAN STATEMENT I saw and evaluated the patient. I reviewed the resident's note and discussed the case with the resident. I agree with the resident's findings and plan as documented. SUBJECTIVE: Rapid Response this AM for episode of Palpitations/CP and SOB, spontaneously resolved, found to have episodes of Atrial Fibrillation with RVR on Telemetry. Admitted with intermittent L sided sharp chest pain. No lightheadedness. No fever/chills/cough/sputum/hemoptysis. OBJECTIVE: Afebrle, Hemodynamically Stable Last Vital Signs Temp Pulse Resp BP Pulse Ox 98.1 F 110 H 22 H 154/87 100 08/21/19 09:05 08/21/19 09:05 08/21/19 09:05 08/21/19 09:05 08/21/19 09:00 Heart - S1, S2 Lungs - clear to auscultation Abdomen - Soft, non-tender. Bowel Sounds normal. Extremities - No calf tenderness Neuro - AAO x 3. Tone/Power normal all 4 extremities. Laboratory Results - last 24 hr 08/20/19 08/21/19 08/21/19 11:53 05:10 05:10 WBC 10.8 H RBC 3.98 Hgb 11.3 Hct 34.2 MCV 85.9 MCH 28.4 MCHC 33.1 RDW 14.0 Plt Count 302 MPV 9.1 Absolute Neuts (auto) 7.3 Neutrophils % 67.6 D Neutrophils % (Manual) 90.0 H Band Neutrophils % 0.0 Lymphocytes % 20.8 D Lymphocytes % (Manual) 3.0 L Monocytes % 10.9 H D Monocytes % (Manual) 7 Eosinophils % 0.3 D Eosinophils % (Manual) 0.0 Basophils % 0.4 D Basophils % (Manual) 0.0 Myelocytes % (Man) 0 Promyelocytes % (Man) 0 Blast Cells % (Manual) 0 Nucleated RBC % 0 Metamyelocytes 0 Platelet Estimate Normal ESR Sodium 141 Potassium 3.8 Chloride 105 Carbon Dioxide 29 Anion Gap 7 L BUN 26.8 H Creatinine 0.8 Est GFR (CKD-EPI)AfAm 87.18 Est GFR (CKD-EPI)NonAf 75.22 Random Glucose 92 Calcium 9.0 Phosphorus 3.9 Magnesium 2.3 Creatine Kinase Troponin I C-Reactive Protein 8.8 H 08/21/19 08/21/19 05:10 09:14 WBC RBC Hgb Hct MCV MCH MCHC RDW Plt Count MPV Absolute Neuts (auto) Neutrophils % Neutrophils % (Manual) Band Neutrophils % Lymphocytes % Lymphocytes % (Manual) Monocytes % Monocytes % (Manual) Eosinophils % Eosinophils % (Manual) Basophils % Basophils % (Manual) Myelocytes % (Man) Promyelocytes % (Man) Blast Cells % (Manual) Nucleated RBC % Metamyelocytes Platelet Estimate ESR 34 H Sodium Potassium Chloride Carbon Dioxide Anion Gap BUN Creatinine Est GFR (CKD-EPI)AfAm Est GFR (CKD-EPI)NonAf Random Glucose Calcium Phosphorus Magnesium Creatine Kinase 30 Troponin I < 0.02 C-Reactive Protein Current Medications Generic Name Dose Route Start Last Admin Trade Name Freq PRN Reason Stop Dose Admin Colchicine 0.6 mg 08/21/19 10:00 08/21/19 09:15 Colcrys PO 0.6 mg DAILY ELIE Administration Sodium Chloride 1,000 mls @ 100 mls/hr 08/21/19 07:15 08/21/19 08:21 Normal Saline - IV 100 mls/hr ASDIR ELIE Administration Ibuprofen 200 mg 08/21/19 06:00 08/21/19 11:43 Advil - PO 200 mg Q6HPO ELIE Administration Metoprolol Succinate 25 mg 08/21/19 10:00 08/21/19 09:15 Toprol Xl - PO 25 mg DAILY ELIE Administration Metoprolol Tartrate 5 mg 08/21/19 10:48 Lopressor Injection - IVPUSH Q4H PRN TACHYCARDIA Nystatin 500,000 units 08/21/19 06:00 08/21/19 11:43 Nystatin Oral Suspension - PO 500,000 units Q6HPO ELIE Administration Pantoprazole Sodium 40 mg 08/20/19 18:45 08/21/19 09:15 Protonix - PO 40 mg DAILY ELIE Administration Rivaroxaban 15 mg 08/20/19 22:00 08/21/19 09:17 Xarelto PO 15 mg BIDWM ELIE Administration Home Medications Medication Instructions Recorded Albuterol 0.083% Nebulizer Zulay 1 neb NEB Q4H PRN 08/20/19 [Ventolin 0.083%] Benzonatate [Tessalon Pearls -] 100 mg PO TID PRN 08/20/19 Furosemide [Lasix -] 40 mg PO DAILY 08/20/19 Ipratropium 0.02% Nebulizer 1 neb NEB QID PRN 08/20/19 [Atrovent] Metoprolol Succinate 25 mg PO ASDIR 08/20/19 Prednisone 5 mg PO ASDIR 08/20/19 Rivaroxaban [Xarelto] 15 mg PO DAILY 08/20/19 ASSESSMENT AND PLAN: 69 year old female with history of HTN, HLD, OA, CAD s/p cath 2009 showing a myocardial bridge sent in from Dr. White's office with complaints of chest pain and shortness of breath. She was recently discharged from [facility] 08/12 after being treated for Pneumonia/LLE DVT/UTI/Vaginal Candidiasis with course of abx (completed), Xarelto for DVT, and Prednisone taper. 1. Acute Paricarditis with Pericardial Effusion ECG - ST changes anterolateral leads (old), Troponin neg Echo - EF 60-65%, impaired LV relaxation, mild effusion CTA chest - limited exam, no PE. Moderate pericardial effusion Evaluated by Cardiology - no signs of tamponade. Continue NSAIDs and Colchicine. Seen by Cardiothoracic Surgery - for conservative management. Further management as per Cardio. Serial Echos/CRP/ESR. 2. Atrial Fibrillation with RVR - new onset Resumed on Metoprolol. On Xarelto for DVT 3. Vaginal Candidiasis and thrush - Nystatin swish/swallow and Diflucan 150mg x 1. 4. HTN - Metoprolol resumed. 5. Hx LLE DVT - on Xarelto 6. Leukocytosis - sec to Prednisone. No signs of active infection. DVT Px - on Xarelto GI Px - PPI.
--- NOTE | 2019-08-21 15:43 | PN ---
Physical Exam: SUBJECTIVE: Patient seen and examined. -rapid response called for complaint of palpitations, SOB lasting 5mins --pt found to be tachy to 110, diaphoretic --ekg showing HR 106, unchanged ST abnormalities(seen in EKGs in past) --palpitations and SOB resolved during RapidResponse -still endorsing mild 5/10 pressure-like pain to Left hemithorax-subcostal region -tolerated breakfast -did not sleep well OBJECTIVE: Vital Signs Period Temp Pulse Resp BP Sys/Stephens Pulse Ox Last 24 Hr 97.8 F-98.7 F 65-110 18-22 95-154/61-87 99-100 GENERAL: The patient is awake, alert, and fully oriented, in no acute distress. HEAD: Normal with no signs of trauma. EYES: PERRL, extraocular movements intact, sclera anicteric, conjunctiva clear. No ptosis. ENT: Ears normal, nares patent, oropharynx clear without exudates, moist mucous membranes. NECK: Trachea midline, full range of motion, supple. LUNGS: Breath sounds equal, clear to auscultation bilaterally, no wheezes, no crackles, no accessory muscle use. HEART: Regular rate and rhythm, S1, S2 without murmur, rub or gallop. ABDOMEN: Soft, nontender, nondistended, normoactive bowel sounds, no guarding, no rebound, no hepatosplenomegaly, no masses. EXTREMITIES: 2+ pulses, warm, well-perfused, no edema. NEUROLOGICAL: Cranial nerves II through XII grossly intact. Normal speech, gait not observed. PSYCH: Normal mood, normal affect. SKIN: Warm, dry, normal turgor, no rashes or lesions noted Laboratory Results - last 24 hr 08/21/19 08/21/19 08/21/19 05:10 05:10 05:10 WBC 10.8 H RBC 3.98 Hgb 11.3 Hct 34.2 MCV 85.9 MCH 28.4 MCHC 33.1 RDW 14.0 Plt Count 302 MPV 9.1 Absolute Neuts (auto) 7.3 Neutrophils % 67.6 D Lymphocytes % 20.8 D Monocytes % 10.9 H D Eosinophils % 0.3 D Basophils % 0.4 D Nucleated RBC % 0 ESR 34 H Sodium 141 Potassium 3.8 Chloride 105 Carbon Dioxide 29 Anion Gap 7 L BUN 26.8 H Creatinine 0.8 Est GFR (CKD-EPI)AfAm 87.18 Est GFR (CKD-EPI)NonAf 75.22 Random Glucose 92 Calcium 9.0 Phosphorus 3.9 Magnesium 2.3 Creatine Kinase Troponin I C-Reactive Protein 8.8 H 08/21/19 09:14 WBC RBC Hgb Hct MCV MCH MCHC RDW Plt Count MPV Absolute Neuts (auto) Neutrophils % Lymphocytes % Monocytes % Eosinophils % Basophils % Nucleated RBC % ESR Sodium Potassium Chloride Carbon Dioxide Anion Gap BUN Creatinine Est GFR (CKD-EPI)AfAm Est GFR (CKD-EPI)NonAf Random Glucose Calcium Phosphorus Magnesium Creatine Kinase 30 Troponin I < 0.02 C-Reactive Protein Active Medications Generic Name Dose Route Start Last Admin Trade Name Freq PRN Reason Stop Dose Admin Colchicine 0.6 mg 08/21/19 10:00 08/21/19 09:15 Colcrys PO 0.6 mg DAILY ELIE Administration Sodium Chloride 1,000 mls @ 100 mls/hr 08/21/19 07:15 08/21/19 08:21 Normal Saline - IV 100 mls/hr ASDIR ELIE Administration Ibuprofen 200 mg 08/21/19 06:00 08/21/19 11:43 Advil - PO 200 mg Q6HPO ELIE Administration Metoprolol Succinate 25 mg 08/21/19 10:00 08/21/19 09:15 Toprol Xl - PO 25 mg DAILY ELIE Administration Metoprolol Tartrate 5 mg 08/21/19 10:48 Lopressor Injection - IVPUSH Q4H PRN TACHYCARDIA Nystatin 500,000 units 08/21/19 06:00 08/21/19 11:43 Nystatin Oral Suspension - PO 500,000 units Q6HPO ELIE Administration Pantoprazole Sodium 40 mg 08/20/19 18:45 08/21/19 09:15 Protonix - PO 40 mg DAILY ELIE Administration Rivaroxaban 15 mg 08/20/19 22:00 08/21/19 09:17 Xarelto PO 15 mg BIDWM ELIE Administration Vital Signs Temp 98.3 F 08/21/19 14:33 Pulse 79 08/21/19 14:33 Resp 20 08/21/19 14:33 BP 154/87 08/21/19 09:05 Pulse Ox 100 08/21/19 09:00 Intake & Output 08/20/19 08/21/1919 23:59 11:59 23:59 Intake Total 120 200 870 Balance 120 200 870 Weight 79.56 kg Intake: IV 630 Normal Saline - 1,000 ml 630 @ 100 mls/hr IV ASDIR ELIE Rx#:[id number] Oral 120 200 240 Other: Voiding Method Diaper Diaper # Unmeasured Voids Void 2 2 Bowel Movement No Height 5 ft 4 in Body Mass Index (BMI) 30.1 Weight Measurement Method Standing Scale ASSESSMENT/PLAN: 69F w/ pmh of HTN, HLD, OA, Raynauds, CAD s/p cath 08/2010 showing a myocardial bridge sent in by 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 W/u ruled out a central PE but possible acute pericarditis #Atrial Fibrillation with RVR - new onset -restarted Metoprolol -cw tele monitor -cw Xarelto for DVT #acute pericarditis >troponin <0.02(08/20, 08/21) >ESR ~34, CRP ~8.8 >EKG: abn STs in anterior pericardial leads -- unchanged from past EKGs >Echo showing LVEF 60-65%, mild MR, mild pericardial effusion -appreicate cardio recs: --Hold BP meds for now as BP has been low/normal and Amlodipine held/ hold Lasix --ESR/CRP -- ESR ~34, CRP ~8.8 --Pulmonary Eval --Continue appropriate dose NOAC for DVT recently diagnosed, need to confirm if she can now be dropped to daily dose. --If CTA is unremarkable and feeling is that pain is purely due to pericardial effusion (ECG not suggestive pericarditis), would be very difficult to use high dose NSAIDS with NOAC as risk of bleeding is increased. Would try Colchicine low dose NSAID with PPI. --Serial echos #pericardial effusion >CTA chest neg for central PE, moderate pericardial effusion -Cardiothoracic Surgery(Nicasri) recs appreciated -- no surgical intervention at time as hemodynamics are not compromised, service will follow -serial echo -- as per cardio #mild hypoxia -- unlikely PE >ED 93% on RA, reported ~mid 80s in office - supplemental O2 as needed - appreciate Pulm recs: --W/U FOR HYPERCOGULABLE STATE -- Hematology(Yvonne) consulted - prednisone taper -- dc as per cardio #vaginal candidasis and thrush - fluconazole 150mg once - nystatin swish and swallow #HTN - cw holding home BP meds -- as per cardio #DVT - cw xarelto - encourage ambulation #FEN -low salt diet -replete lytes as necessary Dispo: - admit to tele Problem List - Problems (1) Pericardial effusion without cardiac tamponade Code(s): I31.3 - PERICARDIAL EFFUSION (NONINFLAMMATORY) (2) SOB (shortness of breath) Code(s): R06.02 - SHORTNESS OF BREATH (3) Hyperlipidemia Code(s): E78.5 - HYPERLIPIDEMIA, UNSPECIFIED (4) Hypertension Code(s): I10 - ESSENTIAL (PRIMARY) HYPERTENSION Visit type - Emergency Visit Emergency Visit: No - New Patient This patient is new to me today: No - Critical Care Critical Care patient: No ATTENDING PHYSICIAN STATEMENT I saw and evaluated the patient. I reviewed the resident's note and discussed the case with the resident. I agree with the resident's findings and plan as documented. SUBJECTIVE: OBJECTIVE: ASSESSMENT AND PLAN:
[2019-08-21] MEDS ORDERED: POTASSIUM CHLORIDE TABS 20 MEQ TABLET.ER (FP) PO ONE (15:56)
--- NOTE | 2019-08-21 19:13 | CONSULT ---
Consultation: REQUESTING PROVIDER: Dr. Roberto CONSULT REQUEST: Hematology and oncology consultation We have been asked to medically evaluate this patient for unprovoked DVT. HISTORY OF PRESENT ILLNESS: The patient is a 69 yo f w/ PMH HTN, HLD< OA, raynaud's phenomenon, CAD s/p cath w/ myocardial bridge who came into the ED c/o left sided CP. In the ED she was found to have a pericardial effusion and a left sided DVT. CTA negative for PE. On eval, patient appears well and is A&Ox3. Patient denies leg pain or SOB. She states that she has had swelling and pain in her left leg for the past 3 months. Patient denies recent immobilization, recent surgeries, recent flights, recent long car rides. Patient had a colonoscopy 1 year ago which was normal. The patient had a mammography 1 year ago which was unremarkable. The patient has never had a PAP smear. Family history: The patient endorses cancer in her father, uncle and aunt. She is unsure of which cancers they might have had. The patient's daughter has raynaud's phenomenon, CREST syndrome and rheumatoid arthritis No other family members with history of cancer or autoimmune disorders REVIEW OF SYSTEMS: CONSTITUTIONAL: Absent: fever, chills, diaphoresis, generalized weakness, malaise, loss of appetite, weight change HEENT: Absent: rhinorrhea, nasal congestion, throat pain, throat swelling, difficulty swallowing, mouth swelling, ear pain, eye pain, visual changes CARDIOVASCULAR: Absent: syncope, palpitations, irregular heart rate, lightheadedness, peripheral edema RESPIRATORY: Absent: shortness of breath, dyspnea with exertion, orthopnea, wheezing, stridor , hemoptysis GASTROINTESTINAL: Absent: abdominal pain, abdominal distension, nausea, vomiting, diarrhea, constipation, melena, hematochezia GENITOURINARY: Absent: dysuria, frequency, urgency, hesitancy, hematuria, flank pain, genital pain MUSCULOSKELETAL: Absent: myalgia, arthralgia, joint swelling, back pain, neck pain SKIN: Absent: rash, itching, pallor HEMATOLOGIC/IMMUNOLOGIC: Absent: easy bleeding, easy bruising, lymphadenopathy, frequent infections ENDOCRINE: Absent: unexplained weight gain, unexplained weight loss, heat intolerance, cold intolerance NEUROLOGIC: Absent: headache, focal weakness or paresthesias, dizziness, unsteady gait, seizure, mental status changes, bladder or bowel incontinence PSYCHIATRIC: Absent: anxiety, depression, suicidal or homicidal ideation, hallucinations. PHYSICAL EXAMINATION Vital Signs - 24 hr 08/20/19 08/21/19 08/21/19 22:00 01:10 02:59 Temperature 98.4 F 98.7 F Pulse Rate 65 74 Respiratory 18 20 20 Rate Blood Pressure 100/63 95/61 O2 Sat by Pulse 99 99 Oximetry (%) 08/21/19 08/21/19 08/21/19 05:00 09:00 09:05 Temperature 97.8 F 98.1 F Pulse Rate 69 110 H Respiratory 20 22 H Rate Blood Pressure 103/68 154/87 O2 Sat by Pulse 100 Oximetry (%) 08/21/19 08/21/19 14:33 18:00 Temperature 98.3 F 98.0 F Pulse Rate 79 89 Respiratory 20 20 Rate Blood Pressure 149/85 O2 Sat by Pulse Oximetry (%) GENERAL: Awake, alert, and fully oriented, in no acute distress. HEAD: Normal with no signs of trauma. LUNGS: Breath sounds equal, clear to auscultation bilaterally. No wheezes, and no crackles. No accessory muscle use. HEART: Regular rate and rhythm, normal S1 and S2 without murmur, rub or gallop. ABDOMEN: Soft, nontender, not distended, normoactive bowel sounds, no guarding, no rebound, no masses. No hepatomegaly or splenomegaly. LOWER EXTREMITIES: 2+ pulses, warm, well-perfused. No calf tenderness. 1+ peripheral edema. NEUROLOGICAL: Cranial nerves II-X intact. Normal speech. Laboratory Results - last 24 hr 08/21/19 08/21/19 08/21/19 05:10 05:10 05:10 WBC 10.8 H RBC 3.98 Hgb 11.3 Hct 34.2 MCV 85.9 MCH 28.4 MCHC 33.1 RDW 14.0 Plt Count 302 MPV 9.1 Absolute Neuts (auto) 7.3 Neutrophils % 67.6 D Lymphocytes % 20.8 D Monocytes % 10.9 H D Eosinophils % 0.3 D Basophils % 0.4 D Nucleated RBC % 0 ESR 34 H Sodium 141 Potassium 3.8 Chloride 105 Carbon Dioxide 29 Anion Gap 7 L BUN 26.8 H Creatinine 0.8 Est GFR (CKD-EPI)AfAm 87.18 Est GFR (CKD-EPI)NonAf 75.22 Random Glucose 92 Calcium 9.0 Phosphorus 3.9 Magnesium 2.3 Creatine Kinase Troponin I C-Reactive Protein 8.8 H 08/21/19 09:14 WBC RBC Hgb Hct MCV MCH MCHC RDW Plt Count MPV Absolute Neuts (auto) Neutrophils % Lymphocytes % Monocytes % Eosinophils % Basophils % Nucleated RBC % ESR Sodium Potassium Chloride Carbon Dioxide Anion Gap BUN Creatinine Est GFR (CKD-EPI)AfAm Est GFR (CKD-EPI)NonAf Random Glucose Calcium Phosphorus Magnesium Creatine Kinase 30 Troponin I < 0.02 C-Reactive Protein Active Medications Generic Name Dose Route Start Last Admin Trade Name Freq PRN Reason Stop Dose Admin Colchicine 0.6 mg 08/21/19 10:00 08/21/19 09:15 Colcrys PO 0.6 mg DAILY ELIE Administration Sodium Chloride 1,000 mls @ 100 mls/hr 08/21/19 07:15 08/21/19 08:21 Normal Saline - IV 100 mls/hr ASDIR ELIE Administration Ibuprofen 200 mg 08/21/19 06:00 08/21/19 17:31 Advil - PO 200 mg Q6HPO ELIE Administration Metoprolol Succinate 25 mg 08/21/19 10:00 08/21/19 09:15 Toprol Xl - PO 25 mg DAILY ELIE Administration Metoprolol Tartrate 5 mg 08/21/19 10:48 Lopressor Injection - IVPUSH Q4H PRN TACHYCARDIA Nystatin 500,000 units 08/21/19 06:00 08/21/19 17:30 Nystatin Oral Suspension - PO 500,000 units Q6HPO ELIE Administration Pantoprazole Sodium 40 mg 08/20/19 18:45 08/21/19 09:15 Protonix - PO 40 mg DAILY ELIE Administration Rivaroxaban 15 mg 08/20/19 22:00 08/21/19 17:30 Xarelto PO 15 mg BIDWM ELIE Administration ASSESSMENT/PLAN: The patient is a 69 yo f w/ PMH HTN, HLD< OA, raynaud's phenomenon, CAD s/p cath w/ myocardial bridge who came into the ED c/o left sided CP. In the ED she was found to have a pericardial effusion and a left sided DVT. CTA negative for PE. #unprovoked PE -Patient currently being treated w/ Xarelto, which limits protein c or antithrombin 3 evaluation. -will send hypercoagulable workup -Factor V leiden -Prothrombin 201, 210A gene -Lupus anticoagulant -anticardiolipin AB -beta 2 glycoprotein 1 -homocysteine -methylated tetrahydrofolate reductase -rheumatoid factor -in this older lady, malignancy must also be ruled out -ct chest done in ED -will order CT abdomen and pelvis r/o malignancy Dispo: We will continue to follow the patient. Thank you for this consultative opportunity. Visit type - Emergency Visit Emergency Visit: Yes ED Registration Date: 08/20/19 Care time: The patient presented to the Emergency Department on the above date and was hospitalized for further evaluation of their emergent condition. - New Patient This patient is new to me today: Yes Date on this admission: 08/21/19 - Critical Care Critical Care patient: No ATTENDING PHYSICIAN STATEMENT I saw and evaluated the patient. I reviewed the resident's note and discussed the case with the resident. I agree with the resident's findings and plan as documented. SUBJECTIVE: OBJECTIVE: ASSESSMENT AND PLAN:
[2019-08-22] MEDS: NYSTATIN 500,000 UNITS/5 ML SUSPENSION PO SCH ×5 (00:48→23:18)
[2019-08-22] MEDS: IBUPROFEN 200 MG TABLET PO SCH ×4 (00:52→18:00)
[2019-08-22 06:58] LABS: BASO % 0.4 % (0-2.0); EOS % 1.3 % (0-4.5); HEMATOCRIT 33.9 % (32.4-45.2); HEMOGLOBIN 11.3 GM/dL (10.7-15.3); LYMPH % 21.1 % (8-40); MCH 28.6 pg (25.7-33.7); MCHC 33.4 g/dl (32.0-36.0); MEAN CELL VOLUME 85.6 fl (80-96); MONO % 10.7 % (3.8-10.2); NEUT % 66.5 % (42.8-82.8); PLATELET COUNT 295 K/MM3 (134-434); RBC 3.96 M/mm3 (3.60-5.2); RDW 13.8 % (11.6-15.6); WHITE BLOOD COUNT 9.4 K/mm3 (4.0-10.0)
[2019-08-22 07:21] LABS: CALCIUM 8.5 mg/dL (8.5-10.1); CREATININE 0.7 mg/dL (0.55-1.3); PHOSPHOROUS 2.6 mg/dL (2.5-4.9); POTASSIUM 4.1 mmol/L (3.5-5.1)
--- NOTE | 2019-08-22 08:23 | PN ---
Teaching Attending Note Name of Resident: Enmanuel Bell ATTENDING PHYSICIAN STATEMENT I saw and evaluated the patient. I reviewed the resident's note and discussed the case with the resident. I agree with the resident's findings and plan as documented. SUBJECTIVE: Patient seen and examined 69 year old female with past history of HPL,HBP,OA, Raynauds, s/p cardiac cath with myocardial bridge. Hospitilized recently for pneumonia at [facility]. History of intermittent left lower extremity swelling x 3 months. Presented to [facility] with chest pain . Found to have a pericardial effusion and LLE DVT. CTA - negative for PE. Non smoker, non drinker, no industrial exposures or intoxicants. FH - positve for pternal uncle and aunt with ca ? type . No family history of DVT ; Daughter with rheumatologic disorder ROS- cough, no headache, diplopia, episaxis, dysphagia, + GERD, no nausea, diarrhea, constipation, , no dysuria, hematura, , + back pains Medical history-HBP, HPL, OA, Raynaud's, s/p cardiac cath with myocardial bridge Surgical- total hysterectomy for endometriosis PE HEENT: ABIMAEL, EOM Intact Oropharynx: No thrush, No mucositis Neck: Supple Nodes: Without adenopathy Breasts: Without masses Cor: RSR, No murmurs, No gallops Lungs: scattered rhonchi Abd: Soft, Normal bowel sounds, No organomegaly Ext:No significant edema Skin: No rashes, Integument intact + LLE Armando's CBC, BMP 08/22/19 05:20 08/22/19 05:20 Current Medications Generic Name Dose Route Start Last Admin Trade Name Freq PRN Reason Stop Dose Admin Colchicine 0.6 mg 08/21/19 10:00 08/21/19 09:15 Colcrys PO 0.6 mg DAILY ELIE Administration Sodium Chloride 1,000 mls @ 100 mls/hr 08/21/19 07:15 08/21/19 08:21 Normal Saline - IV 100 mls/hr ASDIR ELIE Administration Ibuprofen 200 mg 08/21/19 06:00 08/22/19 05:50 Advil - PO Not Given Q6HPO ELIE Metoprolol Succinate 25 mg 08/21/19 10:00 08/21/19 09:15 Toprol Xl - PO 25 mg DAILY ELIE Administration Metoprolol Tartrate 5 mg 08/21/19 10:48 Lopressor Injection - IVPUSH Q4H PRN TACHYCARDIA Nystatin 500,000 units 08/21/19 06:00 08/22/19 05:50 Nystatin Oral Suspension - PO 500,000 units Q6HPO ELIE Administration Pantoprazole Sodium 40 mg 08/20/19 18:45 08/21/19 09:15 Protonix - PO 40 mg DAILY ELIE Administration Rivaroxaban 15 mg 08/20/19 22:00 08/21/19 17:30 Xarelto PO 15 mg BIDWM ELIE Administration Impression: Unprovoked DVT- for thrombophilia work up For screening for malignancy - has had mammography, recent colonoscopy For CT-abdomen/pelvis Pericardial effusion HBP HPL Recent pneumonia Raynaud's For a/c with xarelto OBJECTIVE: ASSESSMENT AND PLAN:
[2019-08-22] MEDS: RIVAROXABAN 15 MG TABLET PO SCH ×2 (09:15→18:00)
[2019-08-22] MEDS: COLCHICINE 0.6 MG CAP PO SCH (09:56)
[2019-08-22] MEDS: PANTOPRAZOLE 40 MG TABLET (FP) PO SCH (09:56)
[2019-08-22] MEDS: metoPROLOL SUCCINATE 25 MG TAB.SR.24H (FP) PO SCH (09:56)
--- NOTE | 2019-08-22 11:27 | PN ---
Progress Note (short form) - Note Progress Note: s: no cp sob palps dizzy Current Medications Generic Name Dose Route Start Last Admin Trade Name Freian PRN Reason Stop Dose Admin Colchicine 0.6 mg 08/21/19 10:00 08/22/19 09:56 Colcrys PO 0.6 mg DAILY ELIE Administration Sodium Chloride 1,000 mls @ 100 mls/hr 08/21/19 07:15 08/21/19 08:21 Normal Saline - IV 100 mls/hr ASDIR ELIE Administration Ibuprofen 200 mg 08/21/19 06:00 08/22/19 05:50 Advil - PO Not Given Q6HPO ELIE Metoprolol Succinate 25 mg 08/21/19 10:00 08/22/19 09:56 Toprol Xl - PO 25 mg DAILY ELIE Administration Metoprolol Tartrate 5 mg 08/21/19 10:48 Lopressor Injection - IVPUSH Q4H PRN TACHYCARDIA Nystatin 500,000 units 08/21/19 06:00 08/22/19 05:50 Nystatin Oral Suspension - PO 500,000 units Q6HPO ELIE Administration Pantoprazole Sodium 40 mg 08/20/19 18:45 08/22/19 09:56 Protonix - PO 40 mg DAILY LEIE Administration Rivaroxaban 15 mg 08/20/19 22:00 08/22/19 09:15 Xarelto PO 15 mg BIDWM ELIE Administration Vital Signs Period Temp Pulse Resp BP Sys/Stephens Pulse Ox Last 24 Hr 97.9 F-99.4 F 69-89 16-20 101-149/61-85 98-98 Constitutional: Yes: No Distress, Calm Eyes: Yes: Conjunctiva Clear, EOM Intact Respiratory: cta bl nl eff Gastrointestinal: Yes: Soft Cardiovascular: Yes: Regular Rate and Rhythm JVD: No Carotid Bruit: No Heart Sounds: Yes: S1, S2 Edema:trace le edema bl Neurological: Yes: Alert, Oriented no jaundice, diaphoresis not agitated Current Medications Generic Name Dose Route Start Last Admin Trade Name Nestor PRN Reason Stop Dose Admin Colchicine 0.6 mg 08/21/19 10:00 08/22/19 09:56 Colcrys PO 0.6 mg DAILY ELIE Administration Sodium Chloride 1,000 mls @ 100 mls/hr 08/21/19 07:15 09/25/19 08:21 Normal Saline - IV 100 mls/hr ASDIR ELIE Administration Ibuprofen 200 mg 08/21/19 06:00 08/22/19 05:50 Advil - PO Not Given Q6HPO ELIE Metoprolol Succinate 25 mg 08/21/19 10:00 08/22/19 09:56 Toprol Xl - PO 25 mg DAILY ELIE Administration Metoprolol Tartrate 5 mg 08/21/19 10:48 Lopressor Injection - IVPUSH Q4H PRN TACHYCARDIA Nystatin 500,000 units 08/21/19 06:00 08/22/19 05:50 Nystatin Oral Suspension - PO 500,000 units Q6HPO ELIE Administration Pantoprazole Sodium 40 mg 08/20/19 18:45 08/22/19 09:56 Protonix - PO 40 mg DAILY ELIE Administration Rivaroxaban 15 mg 08/20/19 22:00 08/22/19 09:15 Xarelto PO 15 mg BIDWM ELIE Administration Imaging - Results X-ray: Image Reviewed EKG: Image Reviewed (cardiomegaly, left effusion, cannot r/o left lower lobe infiltrate) echo 07/2019 nl LV function, impaired relaxation, RV nl, tr MR, mild TR, mild pericardial effusion tele: sinus Assessment/Plan IMP: Recent PNA/sepsis s/p course abx, on steroid taper LE DVT recently diagnosed on admission for above ([facility], discharged one week ago) Persistent cough, severe pleuritic chest pain Small pericardial effusion, atypical pericarditis Atrial fibrillation with RVR REC: - CTA chest no PE, PNA - echo with small pericardial effusion - continue treating for atypical pericarditis - on ibuprofen, colchine with PPI for GI prophylaxis - evaluated by CT surgery - no intervention at this point - new afib with RVR - on xarelto for DVT, metoprolol succinate started, in sr now - monitoring on tele - home BP meds, lasix held for low/normal BP, monitor trend
--- NOTE | 2019-08-22 11:57 | PN ---
Physical Exam: SUBJECTIVE: Patient seen and examined. Endorses mild 2/10 lower sternal pain. Complains of vaginal itching and mild burning after being wiped up after urination. Denies burning sensation during micturition. Has nonproductive cough. Denies fever, chills. OBJECTIVE: Vital Signs Period Temp Pulse Resp BP Sys/Stephens Pulse Ox Last 24 Hr 97.9 F-99.4 F 69-89 16-20 101-149/61-85 98-98 GENERAL: The patient is awake, alert, and fully oriented, in no acute distress. HEAD: Normal with no signs of trauma. EYES: extraocular movements intact, sclera anicteric, conjunctiva clear ENT: Ears normal, nares patent, oropharynx clear without exudates or thrush, moist mucous membranes. NECK: Trachea midline, full range of motion, supple. LUNGS: Breath sounds equal, no wheezes/ronchi, no accessory muscle use. HEART: Regular rate and rhythm, S1, S2 without murmur, rub or gallop. ABDOMEN: Soft, nontender, nondistended, no guarding, no rebound EXTREMITIES: 2+ pulses, warm, well-perfused, no edema, no TTP calf tenderness NEUROLOGICAL: normal speech SKIN: Warm, dry, normal turgor Laboratory Results - last 24 hr 08/22/19 08/22/19 05:20 05:20 WBC 9.4 RBC 3.96 Hgb 11.3 Hct 33.9 MCV 85.6 MCH 28.6 MCHC 33.4 RDW 13.8 Plt Count 295 MPV 9.0 Absolute Neuts (auto) 6.2 Neutrophils % 66.5 Lymphocytes % 21.1 Monocytes % 10.7 H Eosinophils % 1.3 D Basophils % 0.4 Nucleated RBC % 0 Sodium 138 Potassium 4.1 Chloride 103 Carbon Dioxide 29 Anion Gap 5 L BUN 18.0 Creatinine 0.7 Est GFR (CKD-EPI)AfAm 102.46 Est GFR (CKD-EPI)NonAf 88.40 Random Glucose 99 Calcium 8.5 Phosphorus 2.6 Magnesium 2.0 Active Medications Generic Name Dose Route Start Last Admin Trade Name Freq PRN Reason Stop Dose Admin Colchicine 0.6 mg 08/21/19 10:00 08/22/19 09:56 Colcrys PO 0.6 mg DAILY ELIE Administration Sodium Chloride 1,000 mls @ 100 mls/hr 08/21/19 07:15 08/21/19 08:21 Normal Saline - IV 100 mls/hr ASDIR ELIE Administration Ibuprofen 200 mg 08/21/19 06:00 08/22/19 05:50 Advil - PO Not Given Q6HPO ELIE Metoprolol Succinate 25 mg 08/21/19 10:00 08/22/19 09:56 Toprol Xl - PO 25 mg DAILY ELIE Administration Metoprolol Tartrate 5 mg 08/21/19 10:48 Lopressor Injection - IVPUSH Q4H PRN TACHYCARDIA Nystatin 500,000 units 08/21/19 06:00 08/22/19 05:50 Nystatin Oral Suspension - PO 500,000 units Q6HPO ELIE Administration Pantoprazole Sodium 40 mg 08/20/19 18:45 08/22/19 09:56 Protonix - PO 40 mg DAILY ELIE Administration Rivaroxaban 15 mg 08/20/19 22:00 08/22/19 09:15 Xarelto PO 15 mg BIDWM ELIE Administration Vital Signs Temp 99.3 F 08/22/19 13:59 Pulse 79 08/22/19 13:59 Resp 18 08/22/19 13:59 BP 104/69 08/22/19 13:59 Pulse Ox 98 08/22/19 09:00 Intake & Output 08/21/19 08/22/19 08/22/19 23:59 11:59 23:59 Intake Total 1110 460 Balance 1110 460 Intake: IV 630 Normal Saline - 1,000 ml 630 @ 100 mls/hr IV ASDIR ELIE Rx#:[id number] Oral 480 100 Oral Supplement 360 Other: Voiding Method Diaper Diaper # Unmeasured Voids Void 2 2 Bowel Movement Yes No # Bowel Movements 1 ASSESSMENT/PLAN: 69F w/ pmh of HTN, HLD, OA, Raynauds, CAD s/p cath 08/2010 showing a myocardial bridge sent in by her rn shift mgr for further evaluation of SOB, chest pain which was suspicious for PE. W/u ruled out a central PE but possible acute pericarditis, pericardial effusion. Also, being worked up for unprovoked DVT #Atrial Fibrillation with RVR - new onset -- resolved -cw Metoprolol -cw tele monitor -cw Xarelto for DVT #acute pericarditis >troponin <0.02(08/20, 08/21) >ESR ~34, CRP ~8.8 >EKG: abn STs in anterior pericardial leads -- unchanged from past EKGs >Echo showing LVEF 60-65%, mild MR, mild pericardial effusion -appreicate cardio recs: --Hold BP meds(except for metoprolol) for now as BP has been low/normal --ESR/CRP -- ESR ~34, CRP ~8.8 --Pulmonary Eval --CT Surg Eval --If CTA is unremarkable and feeling is that pain is purely due to pericardial effusion (ECG not suggestive pericarditis), would be very difficult to use high dose NSAIDS with NOAC as risk of bleeding is increased. Would try Colchicine low dose NSAID with PPI. --Serial echos #pericardial effusion >CTA chest neg for central PE, moderate pericardial effusion >Echo(08/22/19) -- unchanged -Cardiothoracic Surgery([facility]) recs appreciated -- no surgical intervention at time as hemodynamics are not compromised, service will follow -serial echo -- as per cardio #DVT, unprovoked -heme consulted, recs appreciated: --hypercoagulable workup -Factor V leiden -Prothrombin 201, 210A gene -Lupus anticoagulant -anticardiolipin AB -beta 2 glycoprotein 1 -homocysteine -methylated tetrahydrofolate reductase -rheumatoid factor --r/o malignancy >CT Chest -- neg for malig >CT Abdomen -- neg for malig -cw AC #mild hypoxia -- unlikely PE >ED 93% on RA, reported ~mid 80s in office - supplemental O2 as needed - appreciate Pulm recs: --W/U FOR HYPERCOGULABLE STATE -- Hematology(Yvonne) consulted --inhaled bronchodilators - prednisone taper -- dc as per cardio #vaginal candidasis and thrush - fluconazole 150mg once -- done - nystatin swish and swallow #HTN - cw holding home BP meds(except for metoprolol) -- as per cardio #DVT - cw xarelto - encourage ambulation #FEN -low salt diet -replete lytes as necessary Dispo: - admit to tele Problem List - Problems (1) Pericardial effusion without cardiac tamponade Code(s): I31.3 - PERICARDIAL EFFUSION (NONINFLAMMATORY) (2) SOB (shortness of breath) Code(s): R06.02 - SHORTNESS OF BREATH (3) Hyperlipidemia Code(s): E78.5 - HYPERLIPIDEMIA, UNSPECIFIED (4) Hypertension Code(s): I10 - ESSENTIAL (PRIMARY) HYPERTENSION Visit type - Emergency Visit Emergency Visit: No - New Patient This patient is new to me today: No - Critical Care Critical Care patient: No ATTENDING PHYSICIAN STATEMENT I saw and evaluated the patient. I reviewed the resident's note and discussed the case with the resident. I agree with the resident's findings and plan as documented. SUBJECTIVE: OBJECTIVE: ASSESSMENT AND PLAN:
--- NOTE | 2019-08-22 12:01 | PN ---
Progress Note (short form) - Note Progress Note: Hematology & oncology followup Subjective: Patient seen and examined at bedside. Patient feels well, complaining of burning on urination. No events overnight. ROS: Negative except for HPI Objective: Vital Signs Temperature 97.9 F 08/22/19 08:41 Pulse Rate 83 08/22/19 08:41 Respiratory Rate 18 08/22/19 09:00 Blood Pressure 108/84 08/22/19 08:41 O2 Sat by Pulse Oximetry (%) 98 08/22/19 09:00 PE: General: well appearing, awake and alert oob to chair. Heart: regular rate and rhythm, s1, s2 heard. No murmurs, gallops, rubs. Lungs: crackles heard in the mid lung diane and at the bases. Abdomen: Soft, nontender, nondistended bowel sounds heard. CBC, BMP 08/22/19 05:20 08/22/19 05:20 Assessment & Plan: The patient is a 69 yo f w/ PMH HTN, HLD, OA, raynaud's phenomenon, CAD s/p cath w/ myocardial bridge who came into the ED c/o left sided CP. In the ED she was found to have a pericardial effusion and a left sided DVT. CTA negative for PE. #unprovoked PE -c/w Xarelto for DVT treatment -f/u hypercoagulable workup -in this older lady, malignancy must also be ruled out -CT AP is negative for occult malignancy
[2019-08-22] MEDS ORDERED: NAPH,MB-DB/K PH,MBDB POWDER PACKET PO ONE (12:08)
--- NOTE | 2019-08-22 13:46 | PN ---
Progress Note (short form) - Note Progress Note: PULMONARY Denies shortness of breath. +nonproductive cough without wheezing. Vital Signs Period Temp Pulse Resp BP Sys/Stephens Pulse Ox Last 24 Hr 97.9 F-99.4 F 69-89 16-20 101-149/61-85 98-98 Gen: NAD at rest Heart: RRR Lung: decreased breath sounds at the bases Abd: soft, nontender Ext: no edema CBC, BMP 08/22/19 05:20 08/22/19 05:20 Active Medications Colchicine (Colcrys) 0.6 mg PO DAILY [facility] Last Admin: 08/22/19 09:56 Dose: 0.6 mg Sodium Chloride (Normal Saline -) 1,000 mls @ 100 mls/hr IV ASDIR [facility] Last Admin: 08/21/19 08:21 Dose: 100 mls/hr Ibuprofen (Advil -) 200 mg PO Q6HPO [facility] Last Admin: 08/22/19 12:04 Dose: 200 mg Metoprolol Succinate (Toprol Xl -) 25 mg PO DAILY [facility] Last Admin: 08/22/19 09:56 Dose: 25 mg Metoprolol Tartrate (Lopressor Injection -) 5 mg IVPUSH Q4H PRN PRN Reason: TACHYCARDIA Nystatin (Nystatin Oral Suspension -) 500,000 units PO Q6HPO [facility] Last Admin: 08/22/19 12:05 Dose: 500,000 units Pantoprazole Sodium (Protonix -) 40 mg PO DAILY [facility] Last Admin: 08/22/19 09:56 Dose: 40 mg Rivaroxaban (Xarelto) 15 mg PO BIDWM [facility] Last Admin: 08/22/19 09:15 Dose: 15 mg A/P Atypical Pericarditis Pericardial Effusion Atrial Fibrillation CAD Recent Pneumonia DVT HTN Hyperlipidemia - continue NSAIDs - rate controlled - continue anticoagulation - inhaled bronchodilators - o2 to keep Spo2 >90%
[2019-08-22] MEDS ORDERED: ALBUTEROL SO4 0.042% IH SOL 1.25 MG/3 ML VIAL.NEB NEB PRN (13:47)
[2019-08-22] MEDS: ALBUTEROL SO4 2.5/IPRATROPIUM 0.5 INH SOL 3 ML VIAL.NEB. NEB SCH ×2 (14:30→19:37)
--- NOTE | 2019-08-22 14:47 | PN ---
Teaching Attending Note Name of Resident: [place] ATTENDING PHYSICIAN STATEMENT I saw and evaluated the patient. I reviewed the resident's note and discussed the case with the resident. I agree with the resident's findings and plan as documented. SUBJECTIVE: Chest pain improving. No SOB/Cough/Sputum/hemoptysis. OBJECTIVE: Afebrle, Hemodynamically Stable Last Vital Signs Temp Pulse Resp BP Pulse Ox 99.3 F 79 18 104/69 98 08/22/19 13:59 08/22/19 13:59 08/22/19 13:59 08/22/19 13:59 08/22/19 09:00 Heart - S1, S2 Lungs - clear to auscultation Abdomen - Soft, non-tender. Bowel Sounds normal. Extremities - No calf tenderness Neuro - AAO x 3. Tone/Power normal all 4 extremities. Laboratory Results - last 24 hr 08/22/19 08/22/19 05:20 05:20 WBC 9.4 RBC 3.96 Hgb 11.3 Hct 33.9 MCV 85.6 MCH 28.6 MCHC 33.4 RDW 13.8 Plt Count 295 MPV 9.0 Absolute Neuts (auto) 6.2 Neutrophils % 66.5 Lymphocytes % 21.1 Monocytes % 10.7 H Eosinophils % 1.3 D Basophils % 0.4 Nucleated RBC % 0 Sodium 138 Potassium 4.1 Chloride 103 Carbon Dioxide 29 Anion Gap 5 L BUN 18.0 Creatinine 0.7 Est GFR (CKD-EPI)AfAm 102.46 Est GFR (CKD-EPI)NonAf 88.40 Random Glucose 99 Calcium 8.5 Phosphorus 2.6 Magnesium 2.0 Current Medications Generic Name Dose Route Start Last Admin Trade Name Freq PRN Reason Stop Dose Admin Albuterol Sulfate 1 amp 08/22/19 13:47 Ventolin 0.042trength) - NEB Q4H PRN SHORT OF BREATH/WHEEZING Albuterol/Ipratropium 1 amp 08/22/19 14:00 Duoneb - NEB RTID ELIE Colchicine 0.6 mg 08/21/19 10:00 08/22/19 09:56 Colcrys PO 0.6 mg DAILY ELIE Administration Ibuprofen 200 mg 08/21/19 06:00 08/22/19 12:04 Advil - PO 200 mg Q6HPO ELIE Administration Metoprolol Succinate 25 mg 08/21/19 10:00 08/22/19 09:56 Toprol Xl - PO 25 mg DAILY ELIE Administration Metoprolol Tartrate 5 mg 08/21/19 10:48 Lopressor Injection - IVPUSH Q4H PRN TACHYCARDIA Nystatin 500,000 units 08/21/19 06:00 08/22/19 12:05 Nystatin Oral Suspension - PO 500,000 units Q6HPO ELIE Administration Pantoprazole Sodium 40 mg 08/20/19 18:45 08/22/19 09:56 Protonix - PO 40 mg DAILY ELIE Administration Rivaroxaban 15 mg 08/20/19 22:00 08/22/19 09:15 Xarelto PO 15 mg BIDWM ELIE Administration Home Medications Medication Instructions Recorded Albuterol 0.083% Nebulizer Zulay 1 neb NEB Q4H PRN 08/20/19 [Ventolin 0.083%] Benzonatate [Tessalon Pearls -] 100 mg PO TID PRN 08/20/19 Furosemide [Lasix -] 40 mg PO DAILY 08/20/19 Ipratropium 0.02% Nebulizer 1 neb NEB QID PRN 08/20/19 [Atrovent] Metoprolol Succinate 25 mg PO ASDIR 08/20/19 Prednisone 5 mg PO ASDIR 08/20/19 Rivaroxaban [Xarelto] 15 mg PO DAILY 08/20/19 ASSESSMENT AND PLAN: 69 year old female with history of HTN, HLD, OA, CAD s/p cath 2009 showing a myocardial bridge sent in from Dr. White's office with complaints of chest pain and shortness of breath. She was recently discharged from [facility] 08/12 after being treated for Pneumonia/LLE DVT/UTI/Vaginal Candidiasis with course of abx (completed), Xarelto for DVT, and Prednisone taper. 1. Acute Paricarditis with Pericardial Effusion ECG - ST changes anterolateral leads (old), Troponin neg Echo - EF 60-65%, impaired LV relaxation, mild effusion CTA chest - limited exam, no PE. Moderate pericardial effusion Evaluated by Cardiology - no signs of tamponade. Continue NSAIDs and Colchicine. Seen by Cardiothoracic Surgery - for conservative management. Further management as per Cardio. Serial Echos/CRP/ESR - if repeat Echo is unchanged, can be discharged. 2. Atrial Fibrillation with RVR - new onset Resumed on Metoprolol. On Xarelto for DVT 3. Vaginal Candidiasis and thrush - Nystatin swish/swallow and Diflucan 150mg x 1. 4. HTN - Metoprolol resumed. 5. Hx LLE DVT - on Xarelto. Hematology evaluated - thrombophilia work-up pending. Ca screen negative so far including CT C/A/P pending. Hematology follow -up on discharge. 6. Leukocytosis - sec to Prednisone. No signs of active infection. DVT Px - on Xarelto GI Px - PPI.
--- NOTE | 2019-08-22 16:09 | ECHO ---
Name: TEETEE OLSON Exam:Adult Echocardiogram Study Date: 08/22/2019 03:04 PM Age: 69 yrs Reason For Study: R/O Valve Disease Height: 64 in Weight: 179 lb BSA: 1.9 m2 Procedure A limited two-dimensional transthoracic echocardiogram was performed (2D). Left Ventricle The left ventricular ejection fraction is normal. Right Ventricle The right ventricular systolic function is normal. Pericardium/Pleura Small pericardial effusion (<1cm). There are no echocardiographic indications of cardiac tamponade. Interpretation Summary The left ventricular ejection fraction is normal. The right ventricular systolic function is normal. Small pericardial effusion (<1cm), similar to 08/20/19 echo. There are no echocardiographic indications of cardiac tamponade. MD Tai Meadows 08/22/2019 04:08 PM
--- NOTE | 2019-08-22 21:55 | PN ---
Progress Note (short form) - Note Progress Note: Patient seen and examined Feels OK AFVSSS Cor: RSR, No murmurs, No gallops Lungs: Clear to P&A Abd: Soft, Normal bowel sounds, No organomegaly Ext:No significant edema Labs/Meds reviewed A/P 69 y/o patient with Unprovoked DVT- for thrombophilia work up For screening for malignancy - has had mammography, recent colonoscopy CT-chest/abdomen/pelvis--- no occult malignancy/moderate pericardial effusion repeating echo for Pericardial effusion HBP HPL Recent pneumonia Raynaud's For a/c with xarelto Would consider rheumatology consult given raynauds phenomenon
[2019-08-23] MEDS: IBUPROFEN 200 MG TABLET PO SCH ×4 (00:04→17:08)
[2019-08-23] MEDS: NYSTATIN 500,000 UNITS/5 ML SUSPENSION PO SCH ×3 (05:35→17:08)
[2019-08-23] MEDS: ALBUTEROL SO4 2.5/IPRATROPIUM 0.5 INH SOL 3 ML VIAL.NEB. NEB SCH ×3 (07:56→20:10)
[2019-08-23 07:57] LABS: BASO % 0.5 % (0-2.0); EOS % 1.4 % (0-4.5); HEMATOCRIT 34.1 % (32.4-45.2); HEMOGLOBIN 11.4 GM/dL (10.7-15.3); LYMPH % 23.2 % (8-40); MCH 28.6 pg (25.7-33.7); MCHC 33.4 g/dl (32.0-36.0); MEAN CELL VOLUME 85.8 fl (80-96); MONO % 10.4 % (3.8-10.2); NEUT % 64.5 % (42.8-82.8); PLATELET COUNT 300 K/MM3 (134-434); RBC 3.97 M/mm3 (3.60-5.2); RDW 13.7 % (11.6-15.6); WHITE BLOOD COUNT 8.2 K/mm3 (4.0-10.0)
[2019-08-23 08:02] LABS: ANION GAP 7 MMOL/L (8-16); BLOOD UREA NITROGEN 19.7 mg/dL (7-18); CALCIUM 8.5 mg/dL (8.5-10.1); CHLORIDE 106 mmol/L (98-107); CO2 28 mmol/L (21-32); CREATININE 0.6 mg/dL (0.55-1.3); GLUCOSE,RANDOM 104 mg/dL (74-106); MAGNESIUM 2.1 mg/dL (1.8-2.4); PHOSPHOROUS 3.2 mg/dL (2.5-4.9); POTASSIUM 3.8 mmol/L (3.5-5.1); SODIUM 140 mmol/L (136-145)
[2019-08-23] MEDS ORDERED: PT OWN MED DRAWER 7, Y5N ONE ×2 (08:09→08:56)
--- NOTE | 2019-08-23 08:45 | PN ---
Progress Note (short form) - Note Progress Note: THORACIC SURGERY Alert. States her CP has improved since admission to hospital. Denies n/v/f/c, palpitations, cough, SOB, [place] or hemoptysis. Last Vital Signs Temp Pulse Resp BP Pulse Ox 98.8 F 85 18 105/72 98 08/23/19 08:30 08/23/19 08:30 08/23/19 08:30 08/23/19 08:30 08/22/19 20:30 CBC, BMP 08/23/19 05:37 08/23/19 05:37 PE GEN: nad COR: rrr PULM: cta bilat ABD: soft. nt. nd LE: soft. nt. no edema/swelling Problem List - Problems (1) Pericardial effusion without cardiac tamponade Assessment/Plan: 69 yo female with moderate pericardial effusion without signs of tamponade. Echo shows no hemodynamic compromise. Per Dr. Morataya's note, he spoke with Dr. White who agrees with serial Echos Cont medical management Surgery to cont following. Code(s): I31.3 - PERICARDIAL EFFUSION (NONINFLAMMATORY) (2) Hypertension Code(s): I10 - ESSENTIAL (PRIMARY) HYPERTENSION
[2019-08-23] MEDS: RIVAROXABAN 15 MG TABLET PO SCH ×2 (09:00→17:08)
[2019-08-23] MEDS: PANTOPRAZOLE 40 MG TABLET (FP) PO SCH (09:01)
[2019-08-23] MEDS: metoPROLOL SUCCINATE 25 MG TAB.SR.24H (FP) PO SCH (09:01)
[2019-08-23] MEDS: COLCHICINE 0.6 MG CAP PO SCH (09:01)
--- NOTE | 2019-08-23 09:58 | PN ---
Progress Note, Physician Chief Complaint: Repeat echo small pericardial effusion, unchanged. Feeling better - Current Medication List Current Medications: Active Medications Albuterol Sulfate (Ventolin 0.042trength) -) 1 amp NEB Q4H PRN PRN Reason: SHORT OF BREATH/WHEEZING Albuterol/Ipratropium (Duoneb -) 1 amp NEB RTID [facility] Last Admin: 08/23/19 07:56 Dose: 1 amp Colchicine (Colcrys) 0.6 mg PO DAILY [facility] Last Admin: 08/23/19 09:01 Dose: 0.6 mg Ibuprofen (Advil -) 200 mg PO Q6HPO [facility] Last Admin: 08/23/19 05:36 Dose: 200 mg Metoprolol Succinate (Toprol Xl -) 25 mg PO DAILY [facility] Last Admin: 08/23/19 09:01 Dose: 25 mg Metoprolol Tartrate (Lopressor Injection -) 5 mg IVPUSH Q4H PRN PRN Reason: TACHYCARDIA Nystatin (Nystatin Oral Suspension -) 500,000 units PO Q6HPO [facility] Last Admin: 08/23/19 05:35 Dose: 500,000 units Pantoprazole Sodium (Protonix -) 40 mg PO DAILY [facility] Last Admin: 08/23/19 09:01 Dose: 40 mg Rivaroxaban (Xarelto) 15 mg PO BIDWM [facility] Last Admin: 08/23/19 09:00 Dose: 15 mg - Objective Vital Signs: Vital Signs Temperature 98.8 F 08/23/19 08:30 Pulse Rate 85 08/23/19 08:30 Respiratory Rate 18 08/23/19 08:30 Blood Pressure 105/72 08/23/19 08:30 O2 Sat by Pulse Oximetry (%) 98 08/22/19 20:30 Constitutional: Yes: No Distress, Calm Cardiovascular: Yes: Regular Rate and Rhythm Respiratory: Yes: Other (rales at bases) Gastrointestinal: Yes: Soft Edema: No Labs: CBC, BMP 08/23/19 05:37 08/23/19 05:37 INR, PTT INR 1.96 (0.83-1.09) H 08/20/19 11:53 Assessment/Plan Assessment/Plan IMP: Recent PNA/sepsis s/p course abx, on steroid taper LE DVT recently diagnosed on admission for above ([facility], discharged one week ago) Persistent cough, severe pleuritic chest pain Small pericardial effusion, atypical pericarditis Atrial fibrillation with RVR Chronic diastolic CHF REC: - CTA chest no PE, PNA - echo with small pericardial effusion, stable on repeat echo - continue treating for atypical pericarditis - on ibuprofen, colchine with PPI for GI prophylaxis - evaluated by CT surgery - no intervention at this point - new afib with RVR - on xarelto for DVT, metoprolol succinate started, in sr now; needs to have plan to decrease Xarelto to daily dose at appropriate time interval from the DVT diagnosis - d/c tele - home BP meds -Mild rales on exam today, lasix had been held initially. Resume Lasix 20mg PO daily, CXR
[2019-08-23] MEDS: FUROSEMIDE 20 MG TABLET (FP) PO SCH (11:03)
[2019-08-23 12:19] LABS: RETICULOCYTES 1.81 % (0.5-1.5)
--- NOTE | 2019-08-23 13:20 | PN ---
Progress Note, Physician History of Present Illness: pulmonary alert,comfortable,-sob,min left sided cp - Current Medication List Current Medications: Active Medications Albuterol Sulfate (Ventolin 0.042trength) -) 1 amp NEB Q4H PRN PRN Reason: SHORT OF BREATH/WHEEZING Albuterol/Ipratropium (Duoneb -) 1 amp NEB RTID [facility] Last Admin: 08/23/19 07:56 Dose: 1 amp Colchicine (Colcrys) 0.6 mg PO DAILY [facility] Last Admin: 08/23/19 09:01 Dose: 0.6 mg Furosemide (Lasix -) 20 mg PO DAILY [facility] Last Admin: 08/23/19 11:03 Dose: 20 mg Ibuprofen (Advil -) 200 mg PO Q6HPO [facility] Last Admin: 08/23/19 12:25 Dose: 200 mg Metoprolol Succinate (Toprol Xl -) 25 mg PO DAILY [facility] Last Admin: 08/23/19 09:01 Dose: 25 mg Metoprolol Tartrate (Lopressor Injection -) 5 mg IVPUSH Q4H PRN PRN Reason: TACHYCARDIA Nystatin (Nystatin Oral Suspension -) 500,000 units PO Q6HPO [facility] Last Admin: 08/23/19 12:25 Dose: 500,000 units Pantoprazole Sodium (Protonix -) 40 mg PO DAILY [facility] Last Admin: 08/23/19 09:01 Dose: 40 mg Rivaroxaban (Xarelto) 15 mg PO BIDWM [facility] Last Admin: 08/23/19 09:00 Dose: 15 mg - Objective Vital Signs: Vital Signs Temperature 98.8 F 08/23/19 08:30 Pulse Rate 85 08/23/19 08:30 Respiratory Rate 18 08/23/19 08:30 Blood Pressure 105/72 08/23/19 08:30 O2 Sat by Pulse Oximetry (%) 97 08/23/19 09:00 Constitutional: Yes: Well Nourished, Calm Eyes: Yes: WNL HENT: Yes: WNL Neck: Yes: WNL Cardiovascular: Yes: Regular Rate and Rhythm, S1, S2 Respiratory: Yes: Rales (crackles left base) Gastrointestinal: Yes: Normal Bowel Sounds, Soft Extremities: Yes: WNL Edema: No Labs: CBC, BMP 08/23/19 05:37 08/23/19 05:37 INR, PTT INR 1.96 (0.83-1.09) H 08/20/19 11:53 Problem List - Problems (1) Pericardial effusion without cardiac tamponade Code(s): I31.3 - PERICARDIAL EFFUSION (NONINFLAMMATORY) (2) Pleuritic chest pain Code(s): R07.81 - PLEURODYNIA (3) SOB (shortness of breath) Code(s): R06.02 - SHORTNESS OF BREATH (4) Chest pain Code(s): R07.9 - CHEST PAIN, UNSPECIFIED (5) Cough Code(s): R05 - COUGH (6) Generalized weakness Code(s): R53.1 - WEAKNESS (7) Heart failure, diastolic, with acute decompensation Code(s): I50.33 - ACUTE ON CHRONIC DIASTOLIC (CONGESTIVE) HEART FAILURE Assessment/Plan A/P Atypical Pericarditis improving Pericardial Effusion stable Atrial Fibrillation CAD Recent Pneumonia DVT HTN Hyperlipidemia - continue NSAIDs - rate controlled - continue anticoagulation as per cardiology - inhaled bronchodilators - o2 to keep Spo2 >90% DR PAGE
--- NOTE | 2019-08-23 14:05 | PN ---
Teaching Attending Note Name of Resident: [place] ATTENDING PHYSICIAN STATEMENT I saw and evaluated the patient. I reviewed the resident's note and discussed the case with the resident. I agree with the resident's findings and plan as documented. SUBJECTIVE: Chest pain improved. No SOB/Cough/Sputum/hemoptysis. OBJECTIVE: Afebrle, Hemodynamically Stable Last Vital Signs Temp Pulse Resp BP Pulse Ox 98.8 F 85 18 105/72 97 08/23/19 08:30 08/23/19 08:30 08/23/19 08:30 08/23/19 08:30 08/23/19 09:00 Heart - S1, S2 Lungs - clear to auscultation, decreased slightly at bases Abdomen - Soft, non-tender. Bowel Sounds normal. Extremities - No calf tenderness Neuro - AAO x 3. Tone/Power normal all 4 extremities. Laboratory Results - last 24 hr 08/23/19 08/23/19 05:37 05:37 WBC 8.2 RBC 3.97 Hgb 11.4 Hct 34.1 MCV 85.8 MCH 28.6 MCHC 33.4 RDW 13.7 Plt Count 300 MPV 9.0 Absolute Neuts (auto) 5.3 Neutrophils % 64.5 Lymphocytes % 23.2 Monocytes % 10.4 H Eosinophils % 1.4 Basophils % 0.5 Nucleated RBC % 0 Retic Count 1.81 H Sodium 140 Potassium 3.8 Chloride 106 Carbon Dioxide 28 Anion Gap 7 L BUN 19.7 H Creatinine 0.6 Est GFR (CKD-EPI)AfAm 107.79 Est GFR (CKD-EPI)NonAf 93.00 Random Glucose 104 Calcium 8.5 Phosphorus 3.2 Magnesium 2.1 Rheumatoid Factor < 10.0 Current Medications Generic Name Dose Route Start Last Admin Trade Name Freq PRN Reason Stop Dose Admin Albuterol Sulfate 1 amp 08/22/19 13:47 Ventolin 0.042trength) - NEB Q4H PRN SHORT OF BREATH/WHEEZING Albuterol/Ipratropium 1 amp 08/22/19 14:00 08/23/19 13:46 Duoneb - NEB 1 amp RTID ELIE Administration Colchicine 0.6 mg 08/21/19 10:00 08/23/19 09:01 Colcrys PO 0.6 mg DAILY ELIE Administration Furosemide 20 mg 08/23/19 10:15 08/23/19 11:03 Lasix - PO 20 mg DAILY ELIE Administration Ibuprofen 200 mg 08/21/19 06:00 08/23/19 12:25 Advil - PO 200 mg Q6HPO ELIE Administration Metoprolol Succinate 25 mg 08/21/19 10:00 08/23/19 09:01 Toprol Xl - PO 25 mg DAILY ELIE Administration Metoprolol Tartrate 5 mg 08/21/19 10:48 Lopressor Injection - IVPUSH Q4H PRN TACHYCARDIA Nystatin 500,000 units 08/21/19 06:00 08/23/19 12:25 Nystatin Oral Suspension - PO 500,000 units Q6HPO ELIE Administration Pantoprazole Sodium 40 mg 08/20/19 18:45 08/23/19 09:01 Protonix - PO 40 mg DAILY ELIE Administration Rivaroxaban 15 mg 08/20/19 22:00 08/23/19 09:00 Xarelto PO 15 mg BIDWM ELIE Administration Home Medications Medication Instructions Recorded Albuterol 0.083% Nebulizer Zulay 1 neb NEB Q4H PRN 08/20/19 [Ventolin 0.083%] Benzonatate [Tessalon Pearls -] 100 mg PO TID PRN 08/20/19 Furosemide [Lasix -] 40 mg PO DAILY 08/20/19 Ipratropium 0.02% Nebulizer 1 neb NEB QID PRN 08/20/19 [Atrovent] Metoprolol Succinate 25 mg PO ASDIR 08/20/19 Prednisone 5 mg PO ASDIR 08/20/19 Rivaroxaban [Xarelto] 15 mg PO DAILY 08/20/19 ASSESSMENT AND PLAN: 69 year old female with history of HTN, HLD, OA, CAD s/p cath 2009 showing a myocardial bridge sent in from Dr. White's office with complaints of chest pain and shortness of breath. She was recently discharged from [facility] 08/12 after being treated for Pneumonia/LLE DVT/UTI/Vaginal Candidiasis with course of abx (completed), Xarelto for DVT, and Prednisone taper. 1. Acute Paricarditis with Pericardial Effusion ECG - ST changes anterolateral leads (old), Troponin neg Echo - EF 60-65%, impaired LV relaxation, mild effusion CTA chest - limited exam, no PE. Moderate pericardial effusion Evaluated by Cardiology - no signs of tamponade. Repeat Echo - no changes. Continue NSAIDs and Colchicine. Seen by Cardiothoracic Surgery - for conservative management. Further management as per Cardio. Resumed on home Lasix today. 2. Atrial Fibrillation with RVR - new onset Resumed on Metoprolol. On Xarelto for DVT 3. Vaginal Candidiasis and thrush - Nystatin swish/swallow and Diflucan 150mg x 1. 4. HTN - Metoprolol resumed. 5. Hx LLE DVT - on Xarelto (15mg BID for 21 days, foll by 20mg daily). Hematology evaluated - thrombophilia work-up pending. Ca screen negative so far including CT C/A/P with no evidence of malignancy. Hematology follow-up on discharge. 6. Leukocytosis - sec to Prednisone. No signs of active infection. DVT Px - on Xarelto GI Px - PPI.
--- NOTE | 2019-08-23 15:24 | PN ---
Progress Note (short form) - Note Progress Note: Patient seen and examined Remains dyspneic and tachypneic Cough non productive Last Vital Signs Temp Pulse Resp BP Pulse Ox 99.1 F 88 16 118/78 97 08/23/19 13:45 08/23/19 13:45 08/23/19 13:45 08/23/19 13:45 08/23/19 09:00 HEENT: ABIMAEL, EOM Intact Cor: tachycardia Lungs: scattered rhonchi Abd: Soft, Normal bowel sounds, No organomegaly Ext:No significant edema; negative Armando's Skin: No rashes, Integument intact CBC, BMP 08/23/19 05:37 08/23/19 05:37 Current Medications Generic Name Dose Route Start Last Admin Trade Name Freq PRN Reason Stop Dose Admin Albuterol Sulfate 1 amp 08/22/19 13:47 Ventolin 0.042trength) - NEB Q4H PRN SHORT OF BREATH/WHEEZING Albuterol/Ipratropium 1 amp 08/22/19 14:00 08/23/19 13:46 Duoneb - NEB 1 amp RTID ELIE Administration Colchicine 0.6 mg 08/21/19 10:00 08/23/19 09:01 Colcrys PO 0.6 mg DAILY ELIE Administration Furosemide 20 mg 08/23/19 10:15 08/23/19 11:03 Lasix - PO 20 mg DAILY ELIE Administration Ibuprofen 200 mg 08/21/19 06:00 08/23/19 12:25 Advil - PO 200 mg Q6HPO ELIE Administration Metoprolol Succinate 25 mg 08/21/19 10:00 08/23/19 09:01 Toprol Xl - PO 25 mg DAILY ELIE Administration Metoprolol Tartrate 5 mg 08/21/19 10:48 Lopressor Injection - IVPUSH Q4H PRN TACHYCARDIA Nystatin 500,000 units 08/21/19 06:00 08/23/19 12:25 Nystatin Oral Suspension - PO 500,000 units Q6HPO ELIE Administration Pantoprazole Sodium 40 mg 08/20/19 18:45 08/23/19 09:01 Protonix - PO 40 mg DAILY ELIE Administration Rivaroxaban 15 mg 08/20/19 22:00 08/23/19 09:00 Xarelto PO 15 mg BIDWM ELIE Administration Impression: Unprovoked DVT CT screeninbg unremarkable Mammography and colonoscopy previously - unremarkable Rheunatologic screening pending Thrombophilia work up pending . DISCUSSED WITH PATIENT AND DAUGHTER.
--- NOTE | 2019-08-23 16:11 | PN ---
Physical Exam: SUBJECTIVE: Patient seen and examined. Breathing room air. Expresses some weakness when shuffling to the restroom. Discussed possibility of dispo to rehab vs SNF. Patient said she would consider it. OBJECTIVE: Vital Signs Period Temp Pulse Resp BP Sys/Stephens Pulse Ox Last 24 Hr 97.9 F-99.1 F 79-88 16-18 90-118/53-78 97-98 GENERAL: The patient is awake, alert, and fully oriented, in no acute distress. HEAD: Normal with no signs of trauma. EYES: extraocular movements intact, sclera anicteric, conjunctiva clear ENT: Ears normal, nares patent, oropharynx clear without exudates or thrush, moist mucous membranes. NECK: Trachea midline, full range of motion, supple. LUNGS: Breath sounds equal, no wheezes/ronchi, no accessory muscle use. HEART: Regular rate and rhythm, S1, S2 without murmur, rub or gallop. ABDOMEN: Soft, nontender, nondistended, no guarding, no rebound EXTREMITIES: 2+ pulses, warm, well-perfused, no edema, no TTP calf tenderness NEUROLOGICAL: normal speech SKIN: Warm, dry, normal turgor Laboratory Results - last 24 hr 08/23/19 08/23/19 05:37 05:37 WBC 8.2 RBC 3.97 Hgb 11.4 Hct 34.1 MCV 85.8 MCH 28.6 MCHC 33.4 RDW 13.7 Plt Count 300 MPV 9.0 Absolute Neuts (auto) 5.3 Neutrophils % 64.5 Lymphocytes % 23.2 Monocytes % 10.4 H Eosinophils % 1.4 Basophils % 0.5 Nucleated RBC % 0 Retic Count 1.81 H Sodium 140 Potassium 3.8 Chloride 106 Carbon Dioxide 28 Anion Gap 7 L BUN 19.7 H Creatinine 0.6 Est GFR (CKD-EPI)AfAm 107.79 Est GFR (CKD-EPI)NonAf 93.00 Random Glucose 104 Calcium 8.5 Phosphorus 3.2 Magnesium 2.1 Rheumatoid Factor < 10.0 Active Medications Generic Name Dose Route Start Last Admin Trade Name Freq PRN Reason Stop Dose Admin Albuterol Sulfate 1 amp 08/22/19 13:47 Ventolin 0.042trength) - NEB Q4H PRN SHORT OF BREATH/WHEEZING Albuterol/Ipratropium 1 amp 08/22/19 14:00 08/23/19 13:46 Duoneb - NEB 1 amp RTID ELIE Administration Colchicine 0.6 mg 08/21/19 10:00 08/23/19 09:01 Colcrys PO 0.6 mg DAILY ELIE Administration Furosemide 20 mg 08/23/19 10:15 08/23/19 11:03 Lasix - PO 20 mg DAILY ELIE Administration Ibuprofen 200 mg 08/21/19 06:00 08/23/19 12:25 Advil - PO 200 mg Q6HPO ELIE Administration Metoprolol Succinate 25 mg 08/21/19 10:00 08/23/19 09:01 Toprol Xl - PO 25 mg DAILY ELIE Administration Metoprolol Tartrate 5 mg 08/21/19 10:48 Lopressor Injection - IVPUSH Q4H PRN TACHYCARDIA Nystatin 500,000 units 08/21/19 06:00 08/23/19 12:25 Nystatin Oral Suspension - PO 500,000 units Q6HPO ELIE Administration Pantoprazole Sodium 40 mg 08/20/19 18:45 08/23/19 09:01 Protonix - PO 40 mg DAILY ELIE Administration Rivaroxaban 15 mg 08/20/19 22:00 08/23/19 09:00 Xarelto PO 15 mg BIDWM ELIE Administration Vital Signs Temp 99.1 F 08/23/19 13:45 Pulse 88 08/23/19 13:45 Resp 16 08/23/19 13:45 BP 118/78 08/23/19 13:45 Pulse Ox 97 08/23/19 09:00 Intake & Output 08/22/19 08/23/19 08/23/19 23:59 11:59 23:59 Intake Total 470 240 Balance 470 240 Weight 80.558 kg Intake: Oral 470 240 Other: Voiding Method Diaper Toilet Toilet # Unmeasured Voids Void 2 1 1 Bowel Movement Yes Yes # Bowel Movements 1 1 Weight Measurement Method Standing Scale ASSESSMENT/PLAN: 69F w/ pmh of HTN, HLD, OA, Raynauds, CAD s/p cath 08/2010 showing a myocardial bridge sent in by her child watch attendant for further evaluation of SOB, chest pain which was suspicious for PE. W/u ruled out a central PE but possible acute pericarditis, pericardial effusion. Also, being worked up for unprovoked DVT #Atrial Fibrillation with RVR - new onset -- resolved -cw Metoprolol -cw tele monitor -cw Xarelto for DVT #acute pericarditis >troponin <0.02(08/20, 08/21) >ESR ~34, CRP ~8.8 >EKG: abn STs in anterior pericardial leads -- unchanged from past EKGs >Echo showing LVEF 60-65%, mild MR, mild pericardial effusion -appreicate cardio recs: --resume metoprolol, furosemide --ESR/CRP -- ESR ~34, CRP ~8.8 --Pulmonary Eval --CT Surg Eval --If CTA is unremarkable and feeling is that pain is purely due to pericardial effusion (ECG not suggestive pericarditis), would be very difficult to use high dose NSAIDS with NOAC as risk of bleeding is increased. Would try Colchicine low dose NSAID with PPI. --Serial echos --resume lasix 20mg for rales, fu CXR #pericardial effusion >CTA chest neg for central PE, moderate pericardial effusion >Echo(08/22/19) -- unchanged pericardial effusion -Cardiothoracic Surgery(Nicasri) recs appreciated -- no surgical intervention at time as hemodynamics are not compromised, service will follow -serial echo -- as per cardio #DVT, unprovoked -heme consulted, recs appreciated: --hypercoagulable workup -Factor V leiden -Prothrombin 201, 210A gene -Lupus anticoagulant -anticardiolipin AB -beta 2 glycoprotein 1 -homocysteine -methylated tetrahydrofolate reductase -rheumatoid factor --r/o malignancy >CT Chest -- neg for malig >CT Abdomen -- neg for malig --w/u thrombophilia --rheum screening -cw AC #mild hypoxia -- unlikely PE >ED 93% on RA, reported ~mid 80s in office - supplemental O2 as needed - appreciate Pulm recs: --W/U FOR HYPERCOGULABLE STATE -- Hematology(Yvonne) consulted --inhaled bronchodilators - prednisone taper -- dc as per cardio #vaginal candidasis and thrush - fluconazole 150mg once -- done - nystatin swish and swallow #HTN - cw holding home BP meds(except for metoprolol) -- as per cardio #DVT - cw xarelto - encourage ambulation #FEN -low salt diet -replete lytes as necessary Dispo: - admit to tele Problem List - Problems (1) Pericardial effusion without cardiac tamponade Code(s): I31.3 - PERICARDIAL EFFUSION (NONINFLAMMATORY) (2) SOB (shortness of breath) Code(s): R06.02 - SHORTNESS OF BREATH (3) Hyperlipidemia Code(s): E78.5 - HYPERLIPIDEMIA, UNSPECIFIED (4) Hypertension Code(s): I10 - ESSENTIAL (PRIMARY) HYPERTENSION Visit type - Emergency Visit Emergency Visit: No - New Patient This patient is new to me today: No - Critical Care Critical Care patient: No ATTENDING PHYSICIAN STATEMENT I saw and evaluated the patient. I reviewed the resident's note and discussed the case with the resident. I agree with the resident's findings and plan as documented. SUBJECTIVE: OBJECTIVE: ASSESSMENT AND PLAN:
[2019-08-24] MEDS: IBUPROFEN 200 MG TABLET PO SCH ×5 (00:02→23:09)
[2019-08-24] MEDS: NYSTATIN 500,000 UNITS/5 ML SUSPENSION PO SCH ×5 (00:02→23:09)
[2019-08-24] MEDS: ALBUTEROL SO4 2.5/IPRATROPIUM 0.5 INH SOL 3 ML VIAL.NEB. NEB SCH ×3 (07:55→20:30)
[2019-08-24] MEDS: RIVAROXABAN 15 MG TABLET PO SCH ×2 (08:04→18:16)
[2019-08-24 08:07] LABS: DRVVT CONFIRM SECONDS 1.5 ratio (0.8-1.2); dRVVT MIX 56.6 sec (0.0-47.0)
[2019-08-24] MEDS: COLCHICINE 0.6 MG CAP PO SCH (09:28)
[2019-08-24] MEDS: metoPROLOL SUCCINATE 25 MG TAB.SR.24H (FP) PO SCH (09:28)
[2019-08-24] MEDS: FUROSEMIDE 20 MG TABLET (FP) PO SCH (09:28)
[2019-08-24] MEDS: PANTOPRAZOLE 40 MG TABLET (FP) PO SCH (09:28)
--- NOTE | 2019-08-24 11:03 | PN ---
Progress Note (short form) - Note Progress Note: s: no cp sob palps dizzy Current Medications Generic Name Dose Route Start Last Admin Trade Name Freian PRN Reason Stop Dose Admin Albuterol Sulfate 1 amp 08/22/19 13:47 Ventolin 0.042trength) - NEB Q4H PRN SHORT OF BREATH/WHEEZING Albuterol/Ipratropium 1 amp 08/22/19 14:00 08/24/19 07:55 Duoneb - NEB 1 amp RTID ELIE Administration Colchicine 0.6 mg 08/21/19 10:00 08/24/19 09:28 Colcrys PO 0.6 mg DAILY ELIE Administration Furosemide 20 mg 08/23/19 10:15 08/24/19 09:28 Lasix - PO 20 mg DAILY ELIE Administration Ibuprofen 200 mg 08/21/19 06:00 08/24/19 05:18 Advil - PO 200 mg Q6HPO ELIE Administration Metoprolol Succinate 25 mg 08/21/19 10:00 08/24/19 09:28 Toprol Xl - PO 25 mg DAILY ELIE Administration Metoprolol Tartrate 5 mg 08/21/19 10:48 Lopressor Injection - IVPUSH Q4H PRN TACHYCARDIA Nystatin 500,000 units 08/21/19 06:00 08/24/19 05:19 Nystatin Oral Suspension - PO 500,000 units Q6HPO ELIE Administration Pantoprazole Sodium 40 mg 08/20/19 18:45 08/24/19 09:28 Protonix - PO 40 mg DAILY ELIE Administration Rivaroxaban 15 mg 08/20/19 22:00 08/24/19 08:04 Xarelto PO 15 mg BIDWM ELIE Administration Vital Signs Period Temp Pulse Resp BP Sys/Stephens Pulse Ox Last 24 Hr 97.9 F-99.6 F 82-96 16-20 101-122/56-78 95-97 Constitutional: Yes: No Distress, Calm Eyes: Yes: Conjunctiva Clear Respiratory: cta bl nl eff Gastrointestinal: Yes: Soft Cardiovascular: Yes: Regular Rate and Rhythm JVD: No Carotid Bruit: No Heart Sounds: Yes: S1, S2 Edema:trace le edema bl Neurological: Yes: Alert, Oriented no jaundice, diaphoresis not agitated Current Medications Generic Name Dose Route Start Last Admin Trade Name Freian PRN Reason Stop Dose Admin Albuterol Sulfate 1 amp 08/22/19 13:47 Ventolin 0.042trength) - NEB Q4H PRN SHORT OF BREATH/WHEEZING Albuterol/Ipratropium 1 amp 08/22/19 14:00 08/24/19 07:55 Duoneb - NEB 1 amp RTID ELIE Administration Colchicine 0.6 mg 08/21/19 10:00 08/24/19 09:28 Colcrys PO 0.6 mg DAILY ELIE Administration Furosemide 20 mg 08/23/19 10:15 08/24/19 09:28 Lasix - PO 20 mg DAILY ELIE Administration Ibuprofen 200 mg 08/21/19 06:00 08/24/19 05:18 Advil - PO 200 mg Q6HPO ELEI Administration Metoprolol Succinate 25 mg 08/21/19 10:00 08/24/19 09:28 Toprol Xl - PO 25 mg DAILY ELIE Administration Metoprolol Tartrate 5 mg 08/21/19 10:48 Lopressor Injection - IVPUSH Q4H PRN TACHYCARDIA Nystatin 500,000 units 08/21/19 06:00 08/24/19 05:19 Nystatin Oral Suspension - PO 500,000 units Q6HPO ELIE Administration Pantoprazole Sodium 40 mg 08/20/19 18:45 08/24/19 09:28 Protonix - PO 40 mg DAILY ELIE Administration Rivaroxaban 15 mg 08/20/19 22:00 08/24/19 08:04 Xarelto PO 15 mg BIDWM ELIE Administration Imaging - Results X-ray: Image Reviewed EKG: Image Reviewed (cardiomegaly, left effusion, cannot r/o left lower lobe infiltrate) echo 07/2019 nl LV function, impaired relaxation, RV nl, tr MR, mild TR, mild pericardial effusion tele: sinus Assessment/Plan IMP: Recent PNA/sepsis s/p course abx, on steroid taper LE DVT recently diagnosed on admission for above ([facility], discharged one week ago) Persistent cough, severe pleuritic chest pain Small pericardial effusion, atypical pericarditis Atrial fibrillation with RVR REC: - CTA chest no PE, PNA - echo with small pericardial effusion, stable on repeat echo - continue treating for atypical pericarditis - on ibuprofen, colchine with PPI for GI prophylaxis - evaluated by CT surgery - no intervention at this point - new afib with RVR - on xarelto for DVT, metoprolol succinate started, in sr now; needs to have plan to decrease Xarelto to daily dose at appropriate time interval from the DVT diagnosis - d/c tele - home BP meds -cont po lasix
--- NOTE | 2019-08-24 11:07 | PN ---
Teaching Attending Note Name of Resident: Mt Bentley ATTENDING PHYSICIAN STATEMENT I saw and evaluated the patient. I reviewed the resident's note and discussed the case with the resident. I agree with the resident's findings and plan as documented. SUBJECTIVE: Chest pain improved. No SOB/Cough/Sputum/hemoptysis. OBJECTIVE: Afebrle, Hemodynamically Stable Last Vital Signs Temp Pulse Resp BP Pulse Ox 97.9 F 96 H 20 122/56 L 97 08/24/19 08:08 08/24/19 09:33 08/24/19 09:33 08/24/19 09:33 08/24/19 09:00 Heart - S1, S2 Lungs - clear to auscultation, decreased slightly at bases with few crackles. Abdomen - Soft, non-tender. Bowel Sounds normal. Extremities - No calf tenderness Neuro - AAO x 3. Tone/Power normal all 4 extremities. Laboratory Results - last 24 hr 08/22/19 08/23/19 08/24/19 05:20 05:37 06:10 WBC 8.2 RBC 3.97 Hgb 11.4 Hct 34.1 MCV 85.8 MCH 28.6 MCHC 33.4 RDW 13.7 Plt Count 300 MPV 9.0 Absolute Neuts (auto) 5.3 Neutrophils % 64.5 Lymphocytes % 23.2 Monocytes % 10.4 H Eosinophils % 1.4 Basophils % 0.5 Nucleated RBC % 0 Retic Count 1.81 H LA PTT Baseline 51.1 dRVVT Confirm Interp 1.5 H dRVVT Mixing Study 56.6 H Lupus Anticoag Comment Comment: B-Natriuretic Peptide 298.8 H Anti-Cardiolipin IgG Ab <9 Anti-Cardiolipin IgA Ab <9 Anti-Cardiolipin IgM Ab 24 H Current Medications Generic Name Dose Route Start Last Admin Trade Name Freq PRN Reason Stop Dose Admin Albuterol Sulfate 1 amp 08/22/19 13:47 Ventolin 0.042trength) - NEB Q4H PRN SHORT OF BREATH/WHEEZING Albuterol/Ipratropium 1 amp 08/22/19 14:00 08/24/19 07:55 Duoneb - NEB 1 amp RTID ELIE Administration Colchicine 0.6 mg 08/21/19 10:00 08/24/19 09:28 Colcrys PO 0.6 mg DAILY ELIE Administration Furosemide 20 mg 08/23/19 10:15 08/24/19 09:28 Lasix - PO 20 mg DAILY ELIE Administration Ibuprofen 200 mg 08/21/19 06:00 08/24/19 05:18 Advil - PO 200 mg Q6HPO ELIE Administration Metoprolol Succinate 25 mg 08/21/19 10:00 08/24/19 09:28 Toprol Xl - PO 25 mg DAILY ELIE Administration Metoprolol Tartrate 5 mg 08/21/19 10:48 Lopressor Injection - IVPUSH Q4H PRN TACHYCARDIA Nystatin 500,000 units 08/21/19 06:00 08/24/19 05:19 Nystatin Oral Suspension - PO 500,000 units Q6HPO ELIE Administration Pantoprazole Sodium 40 mg 08/20/19 18:45 08/24/19 09:28 Protonix - PO 40 mg DAILY ELIE Administration Rivaroxaban 15 mg 08/20/19 22:00 08/24/19 08:04 Xarelto PO 15 mg BIDWM ELIE Administration Home Medications Medication Instructions Recorded Albuterol 0.083% Nebulizer Zulay 1 neb NEB Q4H PRN 08/20/19 [Ventolin 0.083%] Benzonatate [Tessalon Pearls -] 100 mg PO TID PRN 08/20/19 Furosemide [Lasix -] 40 mg PO DAILY 08/20/19 Ipratropium 0.02% Nebulizer 1 neb NEB QID PRN 08/20/19 [Atrovent] Metoprolol Succinate 25 mg PO ASDIR 08/20/19 Prednisone 5 mg PO ASDIR 08/20/19 Rivaroxaban [Xarelto] 15 mg PO DAILY 08/20/19 ASSESSMENT AND PLAN: 69 year old female with history of HTN, HLD, OA, CAD s/p cath 2009 showing a myocardial bridge sent in from Dr. White's office with complaints of chest pain and shortness of breath. She was recently discharged from [facility] 08/12 after being treated for Pneumonia/LLE DVT/UTI/Vaginal Candidiasis with course of abx (completed), Xarelto for DVT, and Prednisone taper. 1. Acute Paricarditis with Pericardial Effusion ECG - ST changes anterolateral leads (old), Troponin neg Echo - EF 60-65%, impaired LV relaxation, mild effusion CTA chest - limited exam, no PE. Moderate pericardial effusion Evaluated by Cardiology - no signs of tamponade. Repeat Echo - no changes. Continue NSAIDs and Colchicine. Seen by Cardiothoracic Surgery - for conservative management. Further management as per Cardio. Resumed on home Lasix. Few basal crackles, need for further Lasix as per Cardio. 2. Atrial Fibrillation with RVR - new onset Continue Metoprolol. On Xarelto (for DVT) 3. Vaginal Candidiasis and thrush - Nystatin swish/swallow and received Diflucan 150mg x 1. 4. HTN - Metoprolol resumed. 5. Hx LLE DVT - on Xarelto (15mg BID for 21 days, foll by 20mg daily). Hematology evaluated - thrombophilia work-up sent, anticardiolipin Ab positive. Ca screen negative so far including CT C/A/P, recent mammography and colonoscopy , with no evidence of malignancy. Hematology follow-up on discharge. 6. Leukocytosis - sec to Prednisone (was on taper for recent lung infection) versus UTI. Urine Cx positive for LFNB. Will start 3 day course of Cephalosporin. DVT Px - on Xarelto GI Px - PPI.
[2019-08-24] MEDS ORDERED: DEXTROSE 5%-WATER - 50 ML IVPB ONE (12:06)
[2019-08-24] MEDS ORDERED: cefTRIAXone SODIUM 1 GM VIAL ONE (12:06)
[2019-08-24] MEDS: CEFTRIAXONE 1 GM in DEXTROSE 5%-WATER - 50 ML IVPB SCH (12:10)
--- NOTE | 2019-08-24 13:29 | PN ---
Physical Exam: SUBJECTIVE: Patient seen and examined. Endorses improvement in cough. Denies sputum. Denies chest pain OBJECTIVE: Vital Signs Period Temp Pulse Resp BP Sys/Stephens Pulse Ox Last 24 Hr 97.9 F-99.6 F 82-96 16-20 101-122/56-78 95-97 GENERAL: The patient is awake, alert, and fully oriented, in no acute distress. HEAD: Normal with no signs of trauma. EYES: extraocular movements intact, sclera anicteric, conjunctiva clear ENT: Ears normal, nares patent, oropharynx clear without exudates or thrush, moist mucous membranes. NECK: Trachea midline, full range of motion, supple. LUNGS: Breath sounds equal, no wheezes/ronchi, no accessory muscle use. HEART: Regular rate and rhythm, S1, S2 without murmur, rub or gallop. 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 Confirm Interp 1.5 H dRVVT Mixing Study 56.6 H Lupus Anticoag Comment Comment: B-Natriuretic Peptide 298.8 H Anti-Cardiolipin IgG Ab <9 Anti-Cardiolipin IgA Ab <9 Anti-Cardiolipin IgM Ab 24 H Active Medications Generic Name Dose Route Start Last Admin Trade Name Freq PRN Reason Stop Dose Admin Albuterol Sulfate 1 amp 08/22/19 13:47 Ventolin 0.042trength) - NEB Q4H PRN SHORT OF BREATH/WHEEZING Albuterol/Ipratropium 1 amp 08/22/19 14:00 08/24/19 07:55 Duoneb - NEB 1 amp RTID ELIE Administration Colchicine 0.6 mg 08/21/19 10:00 08/24/19 09:28 Colcrys PO 0.6 mg DAILY ELIE Administration Furosemide 20 mg 08/23/19 10:15 08/24/19 09:28 Lasix - PO 20 mg DAILY ELIE Administration Ceftriaxone Sodium 1 gm/ 50 mls @ 200 mls/hr 08/24/19 11:15 08/24/19 12:10 Dextrose IVPB 200 mls/hr DAILY ELIE Administration Protocol Ibuprofen 200 mg 08/21/19 06:00 08/24/19 11:25 Advil - PO 200 mg Q6HPO ELIE Administration Metoprolol Succinate 25 mg 08/21/19 10:00 08/24/19 09:28 Toprol Xl - PO 25 mg DAILY ELIE Administration Metoprolol Tartrate 5 mg 08/21/19 10:48 Lopressor Injection - IVPUSH Q4H PRN TACHYCARDIA Nystatin 500,000 units 08/21/19 06:00 08/24/19 11:28 Nystatin Oral Suspension - PO 500,000 units Q6HPO ELIE Administration Pantoprazole Sodium 40 mg 08/20/19 18:45 08/24/19 09:28 Protonix - PO 40 mg DAILY ELIE Administration Rivaroxaban 15 mg 08/20/19 22:00 08/24/19 08:04 Xarelto PO 15 mg BIDWM ELIE Administration Vital Signs Temp 97.9 F 08/24/19 08:08 Pulse 96 H 08/24/19 09:33 Resp 20 08/24/19 09:33 BP 122/56 L 08/24/19 09:33 Pulse Ox 97 08/24/19 09:00 Intake & Output 08/23/19 08/24/19 08/24/19 23:59 11:59 23:59 Intake Total 480 470 Balance 480 470 Intake: Oral 480 470 Other: Voiding Method Toilet Toilet # Unmeasured Voids Void 1 2 Bowel Movement No ASSESSMENT/PLAN: 69F w/ pmh of HTN, HLD, OA, Raynauds, CAD s/p cath 08/2010 showing a myocardial bridge sent in by her foreign clerk for further evaluation of SOB, chest pain which was suspicious for PE. W/u ruled out a central PE but possible acute pericarditis, pericardial effusion. Also, being worked up for unprovoked DVT #Atrial Fibrillation with RVR - new onset -- resolved -cw Metoprolol -cw tele monitor -cw Xarelto for DVT #acute pericarditis >troponin <0.02(08/20, 08/21) >ESR ~34, CRP ~8.8 >EKG: abn STs in anterior pericardial leads -- unchanged from past EKGs >Echo showing LVEF 60-65%, mild MR, mild pericardial effusion -appreicate cardio recs: --resume metoprolol, furosemide --ESR/CRP -- ESR ~34, CRP ~8.8 --Pulmonary Eval --CT Surg Eval --Colchicine low dose NSAID with PPI. --Serial echos --resume lasix 20mg for rales, fu CXR #pericardial effusion >CTA chest neg for central PE, moderate pericardial effusion >Echo(08/22/19) -- unchanged pericardial effusion -Cardiothoracic Surgery(Nicasri) recs appreciated -- no surgical intervention at time as hemodynamics are not compromised, service will follow -serial echo -- as per cardio #DVT, unprovoked -- pre-hospitalization -heme consulted, recs appreciated: --hypercoagulable workup -Factor V leiden -Prothrombin 201, 210A gene -Lupus anticoagulant -anticardiolipin AB -beta 2 glycoprotein 1 -homocysteine -methylated tetrahydrofolate reductase -rheumatoid factor --r/o malignancy >CT Chest -- neg for malig >CT Abdomen -- neg for malig --w/u thrombophilia --rheum screening -cw xarelto(15mg BID until Sep 02, then change to 20mg QHS starting Sep 03) #mild hypoxia -- unlikely PE >ED 93% on RA, reported ~mid 80s in office - supplemental O2 as needed - appreciate Pulm recs: --W/U FOR HYPERCOGULABLE STATE -- Hematology(Yvonne) consulted --inhaled bronchodilators - prednisone taper -- dc as per cardio #vaginal candidasis and thrush - fluconazole 150mg once -- done - nystatin swish and swallow #UTI >UCX(08/22/19): lactose-fermenting gram neg bacilli -ceftrixaone, then Ceftin 500mg BID for 2d #HTN -- SBP 100 - 120s in last 24hs - cw holding home BP meds(except for metoprolol, furosemide) -- as per cardio #FEN -low salt diet -replete lytes as necessary Dispo: -admit to tele -d/c: accepted to [facility], pending bed availability Problem List - Problems (1) Pericardial effusion without cardiac tamponade Code(s): I31.3 - PERICARDIAL EFFUSION (NONINFLAMMATORY) (2) SOB (shortness of breath) Code(s): R06.02 - SHORTNESS OF BREATH (3) Hyperlipidemia Code(s): E78.5 - HYPERLIPIDEMIA, UNSPECIFIED (4) Hypertension Code(s): I10 - ESSENTIAL (PRIMARY) HYPERTENSION Visit type - Emergency Visit Emergency Visit: No - New Patient This patient is new to me today: No - Critical Care Critical Care patient: No ATTENDING PHYSICIAN STATEMENT I saw and evaluated the patient. I reviewed the resident's note and discussed the case with the resident. I agree with the resident's findings and plan as documented. SUBJECTIVE: OBJECTIVE: ASSESSMENT AND PLAN:
--- NOTE | 2019-08-24 14:50 | PN ---
Progress Note (short form) - Note Progress Note: PULMONARY Denies shortness of breath or chest pain. +nonproductive cough without wheezing. Vital Signs Period Temp Pulse Resp BP Sys/Stephens Pulse Ox Last 24 Hr 97.9 F-99.6 F 82-96 18-20 101-122/56-76 95-97 Gen: NAD at rest Heart: RRR Lung: decreased breath sounds at the bases Abd: soft, nontender Ext: no edema CBC, BMP 08/23/19 05:37 08/23/19 05:37 Active Medications Albuterol Sulfate (Ventolin 0.042trength) -) 1 amp NEB Q4H PRN PRN Reason: SHORT OF BREATH/WHEEZING Albuterol/Ipratropium (Duoneb -) 1 amp NEB RTID [facility] Last Admin: 08/24/19 07:55 Dose: 1 amp Colchicine (Colcrys) 0.6 mg PO DAILY [facility] Last Admin: 08/24/19 09:28 Dose: 0.6 mg Furosemide (Lasix -) 20 mg PO DAILY [facility] Last Admin: 08/24/19 09:28 Dose: 20 mg Ceftriaxone Sodium 1 gm/ (Dextrose) 50 mls @ 200 mls/hr IVPB DAILY ELIE; Protocol Last Admin: 08/24/19 12:10 Dose: 200 mls/hr Ibuprofen (Advil -) 200 mg PO Q6HPO ELIE Last Admin: 08/24/19 11:25 Dose: 200 mg Metoprolol Succinate (Toprol Xl -) 25 mg PO DAILY [facility] Last Admin: 08/24/19 09:28 Dose: 25 mg Metoprolol Tartrate (Lopressor Injection -) 5 mg IVPUSH Q4H PRN PRN Reason: TACHYCARDIA Nystatin (Nystatin Oral Suspension -) 500,000 units PO Q6HPO ELIE Last Admin: 08/24/19 11:28 Dose: 500,000 units Pantoprazole Sodium (Protonix -) 40 mg PO DAILY [facility] Last Admin: 08/24/19 09:28 Dose: 40 mg Rivaroxaban (Xarelto) 15 mg PO BIDWM [facility] Last Admin: 08/24/19 08:04 Dose: 15 mg A/P Atypical Pericarditis Pericardial Effusion Atrial Fibrillation CAD Recent Pneumonia DVT HTN Hyperlipidemia - continue NSAIDs - rate controlled - continue anticoagulation - inhaled bronchodilators - o2 to keep Spo2 >90%
[2019-08-24] MEDS ORDERED: PT OWN MED DRAWER 7, Y5N ONE (23:07)
[2019-08-25] MEDS: NYSTATIN 500,000 UNITS/5 ML SUSPENSION PO SCH ×3 (05:18→17:29)
[2019-08-25] MEDS: IBUPROFEN 200 MG TABLET PO SCH ×3 (05:18→17:28)
[2019-08-25] MEDS ORDERED: PT OWN MED DRAWER 7, Y5N ONE (08:02)
[2019-08-25] MEDS: RIVAROXABAN 15 MG TABLET PO SCH ×2 (08:12→17:28)
[2019-08-25] MEDS: ALBUTEROL SO4 2.5/IPRATROPIUM 0.5 INH SOL 3 ML VIAL.NEB. NEB SCH ×2 (08:19→14:18)
[2019-08-25] MEDS ORDERED: cefTRIAXone SODIUM 1 GM VIAL ONE (10:13)
[2019-08-25] MEDS ORDERED: DEXTROSE 5%-WATER - 50 ML IVPB ONE (10:13)
[2019-08-25] MEDS: FUROSEMIDE 20 MG TABLET (FP) PO SCH (10:20)
[2019-08-25] MEDS: COLCHICINE 0.6 MG CAP PO SCH (10:20)
[2019-08-25] MEDS: PANTOPRAZOLE 40 MG TABLET (FP) PO SCH (10:20)
[2019-08-25] MEDS: metoPROLOL SUCCINATE 25 MG TAB.SR.24H (FP) PO SCH (10:20)
[2019-08-25] MEDS: CEFTRIAXONE 1 GM in DEXTROSE 5%-WATER - 50 ML IVPB SCH (10:20)
--- NOTE | 2019-08-25 11:03 | PN ---
Progress Note (short form) - Note Progress Note: s: no cp sob palps dizzy Current Medications Generic Name Dose Route Start Last Admin Trade Name Freq PRN Reason Stop Dose Admin Albuterol Sulfate 1 amp 08/22/19 13:47 Ventolin 0.042trength) - NEB Q4H PRN SHORT OF BREATH/WHEEZING Albuterol/Ipratropium 1 amp 08/22/19 14:00 08/25/19 08:19 Duoneb - NEB 1 amp RTID ELIE Administration Colchicine 0.6 mg 08/21/19 10:00 08/25/19 10:20 Colcrys PO 0.6 mg DAILY ELIE Administration Furosemide 20 mg 08/23/19 10:15 08/25/19 10:20 Lasix - PO 20 mg DAILY ELIE Administration Ceftriaxone Sodium 1 gm/ 50 mls @ 200 mls/hr 08/24/19 11:15 08/25/19 10:20 Dextrose IVPB 200 mls/hr DAILY ELIE Administration Protocol Ibuprofen 200 mg 08/21/19 06:00 08/25/19 05:18 Advil - PO 200 mg Q6HPO ELIE Administration Metoprolol Succinate 25 mg 08/21/19 10:00 08/25/19 10:20 Toprol Xl - PO 25 mg DAILY ELIE Administration Metoprolol Tartrate 5 mg 08/21/19 10:48 Lopressor Injection - IVPUSH Q4H PRN TACHYCARDIA Nystatin 500,000 units 08/21/19 06:00 08/25/19 05:18 Nystatin Oral Suspension - PO 500,000 units Q6HPO ELIE Administration Pantoprazole Sodium 40 mg 08/20/19 18:45 08/25/19 10:20 Protonix - PO 40 mg DAILY ELIE Administration Rivaroxaban 15 mg 08/20/19 22:00 08/25/19 08:12 Xarelto PO 15 mg BIDWM ELIE Administration Vital Signs Period Temp Pulse Resp BP Sys/Stephens Pulse Ox Last 24 Hr 97.6 F-98.8 F 72-88 18-20 98-118/58-70 97 Constitutional: Yes: No Distress, Calm Eyes: Yes: Conjunctiva Clear Respiratory: cta bl nl eff Gastrointestinal: Yes: Soft Cardiovascular: Yes: Regular Rate and Rhythm JVD: No Carotid Bruit: No Heart Sounds: Yes: S1, S2 Edema:trace le edema bl Neurological: Yes: Alert, Oriented no jaundice, diaphoresis not agitated CBC, BMP 08/23/19 05:37 08/23/19 05:37 Imaging - Results X-ray: Image Reviewed EKG: Image Reviewed (cardiomegaly, left effusion, cannot r/o left lower lobe infiltrate) echo 07/2019 nl LV function, impaired relaxation, RV nl, tr MR, mild TR, mild pericardial effusion tele: sinus Assessment/Plan IMP: Recent PNA/sepsis s/p course abx, on steroid taper LE DVT recently diagnosed on admission for above ([facility], discharged one week ago) Persistent cough, severe pleuritic chest pain Small pericardial effusion, atypical pericarditis Atrial fibrillation with RVR REC: - CTA chest no PE, PNA - echo with small pericardial effusion, stable on repeat echo - continue treating for atypical pericarditis - on ibuprofen, colchine with PPI for GI prophylaxis - evaluated by CT surgery - no intervention at this point - new afib with RVR - on xarelto for DVT, metoprolol succinate started, in sr now; needs to have plan to decrease Xarelto to daily dose at appropriate time interval from the DVT diagnosis - d/c tele - home BP meds -cont po lasix cardiac chauhan stable for dc on current cardiac meds, needs to f/u with cardio dr sharma in 1-2 weeks.
--- NOTE | 2019-08-25 11:07 | DS ---
Physical Exam: SUBJECTIVE: Chest pain improved. No SOB/Cough/Sputum/hemoptysis. No lightheadedness. OBJECTIVE: Afebrle, Hemodynamically Stable Last Vital Signs Temp Pulse Resp BP Pulse Ox 97.6 F 85 19 118/68 97 08/25/19 08:42 08/25/19 08:42 08/25/19 08:42 08/25/19 08:42 08/24/19 20:29 Heart - S1, S2, RRR Lungs - clear to auscultation, decreased slightly at bases with few crackles. Abdomen - Soft, non-tender. Bowel Sounds normal. Extremities - No calf tenderness Neuro - AAO x 3. Tone/Power normal all 4 extremities. Laboratory Tests 08/20/19 08/20/19 08/20/19 11:53 11:53 11:53 WBC 15.6 H RBC 4.53 Hgb 12.9 Hct 38.9 MCV 85.9 MCH 28.4 MCHC 33.1 RDW 14.0 Plt Count 363 D MPV 9.0 Absolute Neuts (auto) 14.3 H Neutrophils % 91.3 H D Neutrophils % (Manual) 90.0 H Band Neutrophils % 0.0 Lymphocytes % 4.1 L D Lymphocytes % (Manual) 3.0 L Monocytes % 4.5 Monocytes % (Manual) 7 Eosinophils % 0.0 D Eosinophils % (Manual) 0.0 Basophils % 0.1 Basophils % (Manual) 0.0 Myelocytes % (Man) 0 Promyelocytes % (Man) 0 Blast Cells % (Manual) 0 Nucleated RBC % 0 Metamyelocytes 0 Platelet Estimate Normal ESR Retic Count PT with INR 23.30 H INR 1.96 H PTT (Actin FS) 36.1 LA PTT Baseline dRVVT Confirm Interp dRVVT Mixing Study Lupus Anticoag Comment Sodium Potassium Chloride Carbon Dioxide Anion Gap BUN Creatinine Est GFR (CKD-EPI)AfAm Est GFR (CKD-EPI)NonAf Random Glucose Calcium Phosphorus Magnesium Total Bilirubin AST ALT Alkaline Phosphatase Creatine Kinase 46 Troponin I < 0.02 C-Reactive Protein B-Natriuretic Peptide Total Protein Albumin Urine Color Urine Appearance Urine pH Ur Specific [place] Urine Protein Urine Glucose (UA) Urine Ketones Urine Blood Urine Nitrite Urine Bilirubin Urine Urobilinogen Ur Leukocyte Esterase Rheumatoid Factor CHERIE Screen Sm ([place]) Antibody ACCOUNT SERVICES MANAGER Antibody Double Strand DNA Ab Anti-Cardiolipin IgG Ab Anti-Cardiolipin IgA Ab Anti-Cardiolipin IgM Ab 08/20/19 08/20/19 08/21/19 11:53 13:10 05:10 WBC RBC Hgb Hct MCV MCH MCHC RDW Plt Count MPV Absolute Neuts (auto) Neutrophils % Neutrophils % (Manual) Band Neutrophils % Lymphocytes % Lymphocytes % (Manual) Monocytes % Monocytes % (Manual) Eosinophils % Eosinophils % (Manual) Basophils % Basophils % (Manual) Myelocytes % (Man) Promyelocytes % (Man) Blast Cells % (Manual) Nucleated RBC % Metamyelocytes Platelet Estimate ESR Retic Count PT with INR INR PTT (Actin FS) LA PTT Baseline dRVVT Confirm Interp dRVVT Mixing Study Lupus Anticoag Comment Sodium 138 141 Potassium 3.9 3.8 Chloride 100 105 Carbon Dioxide 29 29 Anion Gap 10 7 L BUN 19.2 H 26.8 H Creatinine 0.8 0.8 Est GFR (CKD-EPI)AfAm 87.18 87.18 Est GFR (CKD-EPI)NonAf 75.22 75.22 Random Glucose 121 H 92 Calcium 9.2 9.0 Phosphorus 3.9 Magnesium 2.2 2.3 Total Bilirubin 0.5 AST 14 L ALT 34 Alkaline Phosphatase 113 Creatine Kinase Troponin I C-Reactive Protein 8.8 H B-Natriuretic Peptide Total Protein 7.4 Albumin 3.5 Urine Color Yellow Urine Appearance Clear Urine pH 7.0 Ur Specific [place] 1.005 L Urine Protein Negative Urine Glucose (UA) Negative Urine Ketones Negative Urine Blood Negative Urine Nitrite Negative Urine Bilirubin Negative Urine Urobilinogen 0.2 Ur Leukocyte Esterase Negative Rheumatoid Factor CHERIE Screen Sm ([place]) Antibody ACCOUNT SERVICES MANAGER Antibody Double Strand DNA Ab Anti-Cardiolipin IgG Ab Anti-Cardiolipin IgA Ab Anti-Cardiolipin IgM Ab 08/21/19 08/21/19 08/21/19 05:10 05:10 09:14 WBC 10.8 H RBC 3.98 Hgb 11.3 Hct 34.2 MCV 85.9 MCH 28.4 MCHC 33.1 RDW 14.0 Plt Count 302 MPV 9.1 Absolute Neuts (auto) 7.3 Neutrophils % 67.6 D Neutrophils % (Manual) Band Neutrophils % Lymphocytes % 20.8 D Lymphocytes % (Manual) Monocytes % 10.9 H D Monocytes % (Manual) Eosinophils % 0.3 D Eosinophils % (Manual) Basophils % 0.4 D Basophils % (Manual) Myelocytes % (Man) Promyelocytes % (Man) Blast Cells % (Manual) Nucleated RBC % 0 Metamyelocytes Platelet Estimate ESR 34 H Retic Count PT with INR INR PTT (Actin FS) LA PTT Baseline dRVVT Confirm Interp dRVVT Mixing Study Lupus Anticoag Comment Sodium Potassium Chloride Carbon Dioxide Anion Gap BUN Creatinine Est GFR (CKD-EPI)AfAm Est GFR (CKD-EPI)NonAf Random Glucose Calcium Phosphorus Magnesium Total Bilirubin AST ALT Alkaline Phosphatase Creatine Kinase 30 Troponin I < 0.02 C-Reactive Protein B-Natriuretic Peptide Total Protein Albumin Urine Color Urine Appearance Urine pH Ur Specific [place] Urine Protein Urine Glucose (UA) Urine Ketones Urine Blood Urine Nitrite Urine Bilirubin Urine Urobilinogen Ur Leukocyte Esterase Rheumatoid Factor CHERIE Screen Sm ([place]) Antibody ACCOUNT SERVICES MANAGER Antibody Double Strand DNA Ab Anti-Cardiolipin IgG Ab Anti-Cardiolipin IgA Ab Anti-Cardiolipin IgM Ab 08/22/19 08/22/19 08/22/19 05:20 05:20 05:20 WBC 9.4 RBC 3.96 Hgb 11.3 Hct 33.9 MCV 85.6 MCH 28.6 MCHC 33.4 RDW 13.8 Plt Count 295 MPV 9.0 Absolute Neuts (auto) 6.2 Neutrophils % 66.5 Neutrophils % (Manual) Band Neutrophils % Lymphocytes % 21.1 Lymphocytes % (Manual) Monocytes % 10.7 H Monocytes % (Manual) Eosinophils % 1.3 D Eosinophils % (Manual) Basophils % 0.4 Basophils % (Manual) Myelocytes % (Man) Promyelocytes % (Man) Blast Cells % (Manual) Nucleated RBC % 0 Metamyelocytes Platelet Estimate ESR Retic Count PT with INR INR PTT (Actin FS) LA PTT Baseline 51.1 dRVVT Confirm Interp 1.5 H dRVVT Mixing Study 56.6 H Lupus Anticoag Comment Comment: Sodium 138 Potassium 4.1 Chloride 103 Carbon Dioxide 29 Anion Gap 5 L BUN 18.0 Creatinine 0.7 Est GFR (CKD-EPI)AfAm 102.46 Est GFR (CKD-EPI)NonAf 88.40 Random Glucose 99 Calcium 8.5 Phosphorus 2.6 Magnesium 2.0 Total Bilirubin AST ALT Alkaline Phosphatase Creatine Kinase Troponin I C-Reactive Protein B-Natriuretic Peptide Total Protein Albumin Urine Color Urine Appearance Urine pH Ur Specific [place] Urine Protein Urine Glucose (UA) Urine Ketones Urine Blood Urine Nitrite Urine Bilirubin Urine Urobilinogen Ur Leukocyte Esterase Rheumatoid Factor CHERIE Screen Sm ([place]) Antibody ACCOUNT SERVICES MANAGER Antibody Double Strand DNA Ab Anti-Cardiolipin IgG Ab <9 Anti-Cardiolipin IgA Ab <9 Anti-Cardiolipin IgM Ab 24 H 08/23/19 08/23/19 08/23/19 05:37 05:37 05:37 WBC 8.2 RBC 3.97 Hgb 11.4 Hct 34.1 MCV 85.8 MCH 28.6 MCHC 33.4 RDW 13.7 Plt Count 300 MPV 9.0 Absolute Neuts (auto) 5.3 Neutrophils % 64.5 Neutrophils % (Manual) Band Neutrophils % Lymphocytes % 23.2 Lymphocytes % (Manual) Monocytes % 10.4 H Monocytes % (Manual) Eosinophils % 1.4 Eosinophils % (Manual) Basophils % 0.5 Basophils % (Manual) Myelocytes % (Man) Promyelocytes % (Man) Blast Cells % (Manual) Nucleated RBC % 0 Metamyelocytes Platelet Estimate ESR Retic Count 1.81 H PT with INR INR PTT (Actin FS) LA PTT Baseline dRVVT Confirm Interp dRVVT Mixing Study Lupus Anticoag Comment Sodium 140 Potassium 3.8 Chloride 106 Carbon Dioxide 28 Anion Gap 7 L BUN 19.7 H Creatinine 0.6 Est GFR (CKD-EPI)AfAm 107.79 Est GFR (CKD-EPI)NonAf 93.00 Random Glucose 104 Calcium 8.5 Phosphorus 3.2 Magnesium 2.1 Total Bilirubin AST ALT Alkaline Phosphatase Creatine Kinase Troponin I C-Reactive Protein B-Natriuretic Peptide Total Protein Albumin Urine Color Urine Appearance Urine pH Ur Specific [place] Urine Protein Urine Glucose (UA) Urine Ketones Urine Blood Urine Nitrite Urine Bilirubin Urine Urobilinogen Ur Leukocyte Esterase Rheumatoid Factor < 10.0 CHERIE Screen Negative Sm ([place]) Antibody <0.2 ACCOUNT SERVICES MANAGER Antibody <0.2 Double Strand DNA Ab <1 Anti-Cardiolipin IgG Ab Anti-Cardiolipin IgA Ab Anti-Cardiolipin IgM Ab 08/24/19 06:10 WBC RBC Hgb Hct MCV MCH MCHC RDW Plt Count MPV Absolute Neuts (auto) Neutrophils % Neutrophils % (Manual) Band Neutrophils % Lymphocytes % Lymphocytes % (Manual) Monocytes % Monocytes % (Manual) Eosinophils % Eosinophils % (Manual) Basophils % Basophils % (Manual) Myelocytes % (Man) Promyelocytes % (Man) Blast Cells % (Manual) Nucleated RBC % Metamyelocytes Platelet Estimate ESR Retic Count PT with INR INR PTT (Actin FS) LA PTT Baseline dRVVT Confirm Interp dRVVT Mixing Study Lupus Anticoag Comment Sodium Potassium Chloride Carbon Dioxide Anion Gap BUN Creatinine Est GFR (CKD-EPI)AfAm Est GFR (CKD-EPI)NonAf Random Glucose Calcium Phosphorus Magnesium Total Bilirubin AST ALT Alkaline Phosphatase Creatine Kinase Troponin I C-Reactive Protein B-Natriuretic Peptide 298.8 H Total Protein Albumin Urine Color Urine Appearance Urine pH Ur Specific [place] Urine Protein Urine Glucose (UA) Urine Ketones Urine Blood Urine Nitrite Urine Bilirubin Urine Urobilinogen Ur Leukocyte Esterase Rheumatoid Factor CHERIE Screen Sm ([place]) Antibody ACCOUNT SERVICES MANAGER Antibody Double Strand DNA Ab Anti-Cardiolipin IgG Ab Anti-Cardiolipin IgA Ab Anti-Cardiolipin IgM Ab Discharge Medications Medication Instructions Recorded Albuterol 0.083% Nebulizer Zulay 1 neb NEB Q4H PRN 08/20/19 [Ventolin 0.083% Nebulizer Soln -] Benzonatate [Tessalon Perle -] 100 mg PO TID PRN 08/20/19 Metoprolol Succinate 25 mg PO ASDIR 08/20/19 Rivaroxaban [Xarelto] 15 mg PO DAILY 08/20/19 Colchicine [Colcrys] 0.6 mg PO DAILY 30 Days #30 cap 08/24/19 Furosemide [Lasix -] 20 mg PO DAILY tablet 08/24/19 Ibuprofen [Advil -] 200 mg PO Q6HPO 14 Days #56 tablet 08/24/19 Metoclopramide HCl 5 mg PO DAILY 08/24/19 Pantoprazole Sodium [Protonix -] 40 mg PO DAILY 30 Days #30 08/24/19 tablet.ec Rivaroxaban [Xarelto] 20 mg PO DAILY 30 Days #30 tablet 08/24/19 Simvastatin Cefuroxime 10 mg PO DAILY 500mg BID to start 08/26/19 08/24/19 Date of Admission:08/20/19 Date of Discharge: 08/25/19 Minutes to complete discharge: 45 Discharge Summary Problems reviewed: Yes Reason For Visit: SHORTNESS OF BREATH Current Active Problems Pericardial effusion without cardiac tamponade (Acute) Pleuritic chest pain (Acute) SOB (shortness of breath) (Acute) Hospital Course: 69 year old female with history of HTN, HLD, OA, CAD s/p cath 2009 showing a myocardial bridge sent in from Dr. White's office with complaints of chest pain and shortness of breath. She was recently discharged from [facility] 08/12 after being treated for Pneumonia/LLE DVT/UTI/Vaginal Candidiasis with course of abx (completed), Xarelto for DVT, and Prednisone taper. ISSUES AND MANAGEMENT PLAN: 1. Acute Paricarditis with Pericardial Effusion ECG - ST changes anterolateral leads (old), Troponin neg Echo - EF 60-65%, impaired LV relaxation, mild effusion CTA chest - limited exam, no PE. Moderate pericardial effusion Evaluated by Cardiology - no signs of tamponade. Repeat Echo - no changes. Continue NSAIDs and Colchicine. Seen by Cardiothoracic Surgery - for conservative management. Further management as per Cardio. Resumed on home Lasix. Cardiology follow up as out-patient. 2. Atrial Fibrillation with RVR - new onset, now in SR. Continue Metoprolol. On Xarelto (for DVT) 3. Vaginal Candidiasis and Thrush - Continue Nystatin swish/swallow. Received Diflucan 150mg x 1. 4. HTN - Metoprolol resumed. 5. Hx LLE DVT - on Xarelto (15mg BID for 21 days, foll by 20mg daily to start ). Hematology evaluated - thrombophilia work-up sent, Anticardiolipin Ab positive. Ca screen negative so far including CT C/A/P, recent mammography and colonoscopy, with no evidence of malignancy. Hematology follow-up on discharge. 6. UTI - Urine Cx: Ecoli. Recieved 2 doses of IV ceftrixone (last dose 08/25) - for 1 additional day of Abx therapy tomorrow- Cefuroxime 500mg BID for 1 additional day. DVT Px - on Xarelto GI Px - PPI. Medically stable and cleared by Cardiology for discharge with out-patient follow ups. Condition: Stable - Instructions Diet, Activity, Other Instructions: You were evaluated for chest pain with associated shortness of breath during a post-hospitalization follow-up visit with your home theatre technician. CT angiogram of the chest did not show any pulmonary embolism. Imaging did reveal a small- moderate amount of fluid surrounding the heart. New medications were started for a possible pericarditis. A sed high school teacher recommended inhaled medications to treat your cough. A supervisor grinding recommended bloodwork and a CT scan to evaluate for a possible cause of your previous DVT. Imaging did not find any suspicious malignancies. The results of the hematology bloodwork will be followed up as outpatient. You experienced an episode of rapid heart rate during your hospitalization that has resolved. you were also placed on an antibiotic for a urine infection Please schedule an appointment with the following physicians 1-2 weeks after your discharge: -PCPJimmy) -home theatre technician(Prasanth) for further monitoring/management of your pericarditis. -sed high school teacher(Felisa) -supervisor grinding(Yvonne) for further work-up of Thrombophilia Medications: -START taking: ibuprofen, colchicine[COLCRYS], pantropazole[PROTONIX] -STOP taking: prednisone, amlodipine-valsartan[EXFORGE], metoclopramide -continue with your benzonatate, xarelto, metoprolol, lasix -reminder IMPORTANT: Xarelto is currently 15mg twice a day but from you should change to 20mg once a day dosing Additional Instructions: -take all medications as prescribed -diet: avoid excess salts, sugars -activity: normal activity as tolerated Please come to the ED or seek other medical evaluation if you experience: -severe unremitting chest pain, palpitations, shortness of breath, sudden onset sweating -fever, chills, headache, nausea, vomiting, rectal bleeding HOSPITAL COURSE: 69 year old female with history of HTN, HLD, OA, CAD s/p cath 2009 showing a myocardial bridge sent in from Dr. White's office with complaints of chest pain and shortness of breath. She was recently discharged from [facility] 08/12 after being treated for Pneumonia/LLE DVT/UTI/Vaginal Candidiasis with course of abx (completed), Xarelto for DVT, and Prednisone taper. ISSUES AND MANAGEMENT PLAN: 1. Acute Paricarditis with Pericardial Effusion ECG - ST changes anterolateral leads (old), Troponin neg Echo - EF 60-65%, impaired LV relaxation, mild effusion CTA chest - limited exam, no PE. Moderate pericardial effusion Evaluated by Cardiology - no signs of tamponade. Repeat Echo - no changes. Continue NSAIDs and Colchicine. Seen by Cardiothoracic Surgery - for conservative management. Further management as per Cardio. Resumed on home Lasix. Cardiology follow up as out-patient. 2. Atrial Fibrillation with RVR - new onset, now in SR. Continue Metoprolol. On Xarelto (for DVT) 3. Vaginal Candidiasis and Thrush - Continue Nystatin swish/swallow. Received Diflucan 150mg x 1. 4. HTN - Metoprolol resumed. 5. Hx LLE DVT - on Xarelto (15mg BID for 21 days, foll by 20mg daily to start ). Hematology evaluated - thrombophilia work-up sent, Anticardiolipin Ab positive. Ca screen negative so far including CT C/A/P, recent mammography and colonoscopy, with no evidence of malignancy. Hematology follow-up on discharge. 6. UTI - Urine Cx: Ecoli. Recieved 2 doses of IV ceftrixone (last dose 08/25) - for 1 additional day of Abx therapy tomorrow- Cefuroxime 500mg BID for 1 additional day. DVT Px - on Xarelto GI Px - PPI. Medically stable and cleared by Cardiology for discharge with out-patient follow ups. Referrals: Xiang Roberto MD [Staff Physician] - Sudhir White MD [Staff Physician] - Nadeem Russell MD [Staff Physician] - - Home Medications Comprehensive Discharge Medication List: Ambulatory Orders Albuterol 0.083% Nebulizer Zulay [Ventolin 0.083% Nebulizer Soln -] 1 neb NEB Q4H PRN 08/20/19 Benzonatate [Tessalon Perle -] 100 mg PO TID PRN 08/20/19 Ipratropium 0.02% Nebulizer [Atrovent 0.02% Nebulizer -] 1 neb NEB QID PRN 08/20 Metoprolol Succinate 25 mg PO ASDIR 08/20/19 Rivaroxaban [Xarelto] 15 mg PO DAILY 08/20/19 Colchicine [Colcrys] 0.6 mg PO DAILY 30 Days #30 cap 08/24/19 Furosemide [Lasix -] 20 mg PO DAILY tablet 08/24/19 Ibuprofen [Advil -] 200 mg PO Q6HPO 14 Days #56 tablet 08/24/19 Metoclopramide HCl 5 mg PO DAILY 08/24/19 Pantoprazole Sodium [Protonix -] 40 mg PO DAILY 30 Days #30 tablet.ec 08/24/19 Rivaroxaban [Xarelto] 20 mg PO DAILY 30 Days #30 tablet 08/24/19 Simvastatin 10 mg PO DAILY 08/24/19 Problem List - Problems (1) Pericardial effusion without cardiac tamponade Code(s): I31.3 - PERICARDIAL EFFUSION (NONINFLAMMATORY) This patient is new to me today: No Emergency Visit: Yes ED Registration Date: 08/20/19 Care time: The patient presented to the Emergency Department on the above date and was hospitalized for further evaluation of their emergent condition. Critical Care patient: No - Discharge Referral Referred to [facility] Med P.C.: No
[2019-08-25 17:28] VITALS: BP 111/71; PULSE 93; TEMP 97.9
[2019-08-26 12:52] LABS: HOMOCYSTINE-PLASMA OR SERUM 7.8 umol/L (5.1-13.9); METHYLMALONIC ACID- 105 nmol/L (0-378)
== END 2019-08-25 18:34 | DRG 315 ==
LOC: SUPCPDRO 10:57 → JER 10:57 → JERBED 17:22 → J4S 20:30
DX: I30.9 Acute pericarditis, unspecified (principal); N39.0 Urinary tract infection, site not specified; Q24.5 Malformation of coronary vessels; I82.402 Acute embolism and thrombosis of unspecified deep veins of left lower extremity; B37.0 Candidal stomatitis; J90 Pleural effusion, not elsewhere classified; I50.32 Chronic diastolic (congestive) heart failure; I31.3 Pericardial effusion (noninflammatory); I48.91 Unspecified atrial fibrillation; B37.3 Candidiasis of vulva and vagina; I10 Essential (primary) hypertension; I73.00 Raynaud's syndrome without gangrene; D72.829 Elevated white blood cell count, unspecified; R00.0 Tachycardia, unspecified; E78.5 Hyperlipidemia, unspecified; I25.10 Atherosclerotic heart disease of native coronary artery without angina pectoris; B96.20 Unspecified Escherichia coli [E. coli] as the cause of diseases classified elsewhere; E66.9 Obesity, unspecified; Z68.30 Body mass index [BMI] 30.0-30.9, adult
CPT/HCPCS: 36415; 71045-TC-FY; 71275-TC; 72193-TC; 74160-TC; 80048; 80053; 81003; 81241; 81291; 82136; 82550; 82595; 83735; 83880; 83918; 84100; 84484; 85025; 85044; 85610; 85613; 85651; 85730; 85732; 86038; 86140; 86225; 86235; 86431; 87086; 87186; 93005; 93010; 93306-TC; 93308; 94640; 97116-GP; 97161-GP; 99284-25; J7030; Q9967

== ENCOUNTER 2022-11-23 11:37 | Inpatient (IN) | payer OTHER, BC ==
[2022-11-23 12:04] VITALS: BMI 30.9
[2022-11-23] MEDS ORDERED: ALBUTEROL SO4 2.5/IPRATROPIUM 0.5 INH SOL 3 ML VIAL.NEB. NEB ONE ×4 (12:55→20:52)
[2022-11-23 13:13] LABS: HEMATOCRIT 44.2 % (32.4-45.2); HEMOGLOBIN 14.3 GM/dL (10.7-15.3); MCH 27.8 pg (25.7-33.7); MCHC 32.4 g/dl (32.0-36.0); MEAN CELL VOLUME 85.7 fl (80-96); MEAN PLT VOLUME 9.9 fl (7.5-11.1); PLATELET COUNT 215 10^3/uL (134-434); RBC 5.16 M/mm3 (3.60-5.2); RDW 14.1 % (11.6-15.6); WHITE BLOOD COUNT 8.7 K/mm3 (4.0-10.0)
[2022-11-23 13:21] LABS: INR 1.3 (0.83-1.09); VENOUS BASE EXCESS 1.1 mmol/L (-2-2); VENOUS PCO2 42.6 mmHg (38-52); VENOUS PH 7.405 (7.310-7.410)
[2022-11-23 13:24] LABS: ACTIVATED PTT 33.6 SECONDS (25.2-36.5)
[2022-11-23 13:30] LABS: CALCIUM 9.4 mg/dL (8.5-10.1)
[2022-11-23 13:31] LABS: ALBUMIN 3.6 g/dl (3.4-5.0); BLOOD UREA NITROGEN 14.8 mg/dL (7-18)
[2022-11-23 13:35] LABS: CREATININE 0.7 mg/dL (0.55-1.3)
[2022-11-23 13:36] LABS: BILIRUBIN,TOTAL 0.4 mg/dL (0.2-1); TOT PROT 7.8 g/dl (6.4-8.2)
[2022-11-23 13:38] LABS: ANISOCYTOSIS 0; HELMET CELLS 0; HOWELL-JOLLY BODIES 0; MACROCYTOSIS 0; OVALOCYTE 0; ROULEAU 0; SICKELED CELLS 0; TARGET CELLS 0; TEAR DROP CELLS 0; TOXIC GRANULATION 0
[2022-11-23 13:39] LABS: N-TERMINAL BNP 123.7 pg/ml (5-125)
[2022-11-23] MEDS ORDERED: LACTATED RINGERS SOLUTION 1000 ML INFUS.BAG IV ONE (14:37)
[2022-11-23] MEDS ORDERED: ACETAMINOPHEN 1000 MG/100 ML BAG IVPB ONE (14:37)
[2022-11-23] MEDS ORDERED: ACETAMINOPHEN INJECTION 100 ML IVPB ONE (14:41)
[2022-11-23] MEDS ORDERED: DEXAMETHASONE SOD PHOSPHATE 10 MG/1 ML VIAL IVPUSH ONE (15:16)
[2022-11-23] MEDS ORDERED: DEXAMETHASONE SOD PHOSPHATE 10 MG/1 ML VIAL ONE (15:24)
[2022-11-23] MEDS ORDERED: guaiFENesin/CODEINE 10 ML UNIT-DOSE CUPS PO PRN (16:19)
[2022-11-23] MEDS ORDERED: PANTOPRAZOLE 40 MG TABLET PO SCH (16:30)
[2022-11-23] MEDS ORDERED: PANTOPRAZOLE 20 MG TABLET PO ONE (16:53)
[2022-11-23] MEDS ORDERED: methylPREDNISolone NA SUCC 40 MG/1 ML VIAL ONE ×2 (16:53→22:52)
[2022-11-23] MEDS: methylPREDNISolone NA SUCC 40 MG/1 ML VIAL IVPUSH SCH ×2 (16:59→22:59)
[2022-11-23] MEDS ORDERED: APIXABAN 5 MG TABLET ONE (20:53)
[2022-11-23] MEDS: ALBUTEROL SO4 2.5/IPRATROPIUM 0.5 INH SOL 3 ML VIAL.NEB. NEB SCH (20:56)
[2022-11-23] MEDS: APIXABAN 5 MG TABLET PO SCH (22:28)
[2022-11-24] MEDS ORDERED: methylPREDNISolone NA SUCC 40 MG/1 ML VIAL ONE ×3 (05:01→16:25)
[2022-11-24] MEDS: methylPREDNISolone NA SUCC 40 MG/1 ML VIAL IVPUSH SCH ×4 (05:06→17:45)
[2022-11-24 08:05] LABS: BASO % 0.1 % (0-2.0); HEMATOCRIT 41.4 % (32.4-45.2); HEMOGLOBIN 13.6 GM/dL (10.7-15.3); LYMPH % 6.4 % (8-40); MCHC 32.8 g/dl (32.0-36.0); MEAN CELL VOLUME 85.3 fl (80-96); MEAN PLT VOLUME 9.3 fl (7.5-11.1); MONO % 3.3 % (3.8-10.2); NEUT % 90.2 % (42.8-82.8); PLATELET COUNT 202 10^3/uL (134-434); RBC 4.86 M/mm3 (3.60-5.2); RDW 14.5 % (11.6-15.6); WHITE BLOOD COUNT 8.7 K/mm3 (4.0-10.0)
[2022-11-24 08:33] LABS: ALBUMIN 3.5 g/dl (3.4-5.0); BLOOD UREA NITROGEN 21.7 mg/dL (7-18); CREATININE 0.7 mg/dL (0.55-1.3)
[2022-11-24 08:35] LABS: BILIRUBIN,TOTAL 0.4 mg/dL (0.2-1); CALCIUM 9.4 mg/dL (8.5-10.1); TOT PROT 7.2 g/dl (6.4-8.2)
[2022-11-24 08:38] LABS: MAGNESIUM 1.7 mg/dL (1.8-2.4)
[2022-11-24] MEDS ORDERED: guaiFENesin/CODEINE 5 ML UNIT-DOSE CUPS PO ONE ×2 (08:51→16:21)
[2022-11-24] MEDS ORDERED: metoPROLOL SUCCINATE 25 MG TAB.SR.24H (FP) PO ONE (08:51)
[2022-11-24] MEDS ORDERED: FUROSEMIDE 20 MG TABLET (FP) ONE (08:51)
[2022-11-24] MEDS ORDERED: PANTOPRAZOLE 40 MG TABLET PO ONE (08:51)
[2022-11-24] MEDS ORDERED: APIXABAN 5 MG TABLET ONE ×2 (08:51→21:03)
[2022-11-24] MEDS: APIXABAN 5 MG TABLET PO SCH ×2 (08:55→21:03)
[2022-11-24] MEDS: PANTOPRAZOLE 40 MG TABLET PO SCH (08:55)
[2022-11-24] MEDS: guaiFENesin/CODEINE 5 ML UNIT-DOSE CUPS PO PRN ×2 (08:55→16:27)
[2022-11-24] MEDS: metoPROLOL SUCCINATE 25 MG TAB.SR.24H (FP) PO SCH (08:55)
[2022-11-24] MEDS: FUROSEMIDE 20 MG TABLET (FP) PO SCH (08:55)
[2022-11-24] MEDS ORDERED: ALBUTEROL SO4 2.5/IPRATROPIUM 0.5 INH SOL 3 ML VIAL.NEB. NEB ONE (09:17)
[2022-11-24] MEDS ORDERED: POTASSIUM CHLORIDE TABS 20 MEQ TABLET.ER (FP) PO ONE ×2 (16:53→17:48)
[2022-11-25] MEDS: ALBUTEROL SO4 2.5/IPRATROPIUM 0.5 INH SOL 3 ML VIAL.NEB. NEB SCH ×6 (04:11→20:19)
[2022-11-25] MEDS: guaiFENesin/CODEINE 5 ML UNIT-DOSE CUPS PO PRN (04:11)
[2022-11-25] MEDS ORDERED: guaiFENesin/CODEINE 5 ML UNIT-DOSE CUPS PO ONE ×3 (04:12→10:15)
[2022-11-25] MEDS ORDERED: ALBUTEROL SO4 2.5/IPRATROPIUM 0.5 INH SOL 3 ML VIAL.NEB. NEB ONE ×5 (04:12→20:12)
[2022-11-25] MEDS: methylPREDNISolone NA SUCC 40 MG/1 ML VIAL IVPUSH SCH ×3 (07:32→18:32)
[2022-11-25] MEDS ORDERED: PANTOPRAZOLE 40 MG TABLET PO ONE (08:21)
[2022-11-25] MEDS ORDERED: APIXABAN 5 MG TABLET ONE ×2 (08:21→21:28)
[2022-11-25] MEDS ORDERED: metoPROLOL SUCCINATE 25 MG TAB.SR.24H (FP) PO ONE (08:22)
[2022-11-25] MEDS ORDERED: methylPREDNISolone NA SUCC 40 MG/1 ML VIAL ONE ×2 (08:22→18:28)
[2022-11-25] MEDS ORDERED: FUROSEMIDE 20 MG TABLET (FP) ONE (08:22)
[2022-11-25] MEDS: PANTOPRAZOLE 40 MG TABLET PO SCH (09:45)
[2022-11-25] MEDS: FUROSEMIDE 20 MG TABLET (FP) PO SCH (09:45)
[2022-11-25] MEDS: metoPROLOL SUCCINATE 25 MG TAB.SR.24H (FP) PO SCH (09:45)
[2022-11-25] MEDS: APIXABAN 5 MG TABLET PO SCH ×2 (09:45→21:30)
[2022-11-25] MEDS ORDERED: guaiFENesin/D-METHORPHAN HB 10 ML UNIT-DOSE CUPS PO PRN (13:00)
[2022-11-25] MEDS ORDERED: guaiFENesin/CODEINE 10 ML UNIT-DOSE CUPS ONE (14:40)
[2022-11-25] MEDS ORDERED: ALBUTEROL SO4 0.083% IH SOL 2.5 MG/3 ML VIAL.NEB. NEB ONE (14:40)
[2022-11-25] MEDS: ALBUTEROL SO4 0.083% IH SOL 2.5 MG/3 ML VIAL.NEB. NEB PRN (14:48)
[2022-11-25] MEDS: guaiFENesin/CODEINE 10 ML UNIT-DOSE CUPS PO PRN (14:48)
[2022-11-25] MEDS: BUDESONIDE 0.25 MG/2ML INH SUSP VIAL NEB SCH ×2 (17:45→21:24)
[2022-11-25] MEDS ORDERED: guaiFENesin/CODEINE 10 ML UNIT-DOSE CUPS PO SCH (22:00)
[2022-11-26] MEDS ORDERED: ALBUTEROL SO4 2.5/IPRATROPIUM 0.5 INH SOL 3 ML VIAL.NEB. NEB ONE ×3 (04:41→17:56)
[2022-11-26] MEDS ORDERED: methylPREDNISolone NA SUCC 40 MG/1 ML VIAL ONE ×3 (04:41→17:56)
[2022-11-26] MEDS: methylPREDNISolone NA SUCC 40 MG/1 ML VIAL IVPUSH SCH ×3 (04:42→17:59)
[2022-11-26] MEDS: guaiFENesin/CODEINE 10 ML UNIT-DOSE CUPS PO PRN ×2 (07:53→18:13)
[2022-11-26] MEDS ORDERED: guaiFENesin/CODEINE 10 ML UNIT-DOSE CUPS ONE ×2 (07:53→18:13)
[2022-11-26] MEDS ORDERED: FUROSEMIDE 20 MG TABLET (FP) ONE (10:40)
[2022-11-26] MEDS ORDERED: ACETAMINOPHEN 325 MG TABLET (FP) ONE (10:40)
[2022-11-26] MEDS ORDERED: ASPIRIN 81 MG CHEWABLE TABLETS ONE (10:40)
[2022-11-26] MEDS ORDERED: metoPROLOL SUCCINATE 25 MG TAB.SR.24H (FP) PO ONE (10:40)
[2022-11-26] MEDS ORDERED: APIXABAN 5 MG TABLET ONE (10:40)
[2022-11-26] MEDS: metoPROLOL SUCCINATE 25 MG TAB.SR.24H (FP) PO SCH (10:44)
[2022-11-26] MEDS: FUROSEMIDE 20 MG TABLET (FP) PO SCH (10:45)
[2022-11-26] MEDS: ASPIRIN 81 MG CHEWABLE TABLETS PO SCH (10:45)
[2022-11-26] MEDS: APIXABAN 5 MG TABLET PO SCH ×2 (10:45→21:18)
[2022-11-26] MEDS: ACETAMINOPHEN 325 MG TABLET (FP) PO PRN (10:46)
[2022-11-26] MEDS: PANTOPRAZOLE 40 MG TABLET PO SCH (10:48)
[2022-11-26] MEDS ORDERED: PANTOPRAZOLE 40 MG TABLET PO ONE (10:54)
[2022-11-26] MEDS: ALBUTEROL SO4 2.5/IPRATROPIUM 0.5 INH SOL 3 ML VIAL.NEB. NEB SCH ×4 (14:21→20:05)
[2022-11-26] MEDS: BUDESONIDE 0.25 MG/2ML INH SUSP VIAL NEB SCH ×2 (14:48→20:05)
[2022-11-27] MEDS: methylPREDNISolone NA SUCC 40 MG/1 ML VIAL IVPUSH SCH ×3 (02:53→16:59)
[2022-11-27] MEDS: guaiFENesin/CODEINE 10 ML UNIT-DOSE CUPS PO PRN ×3 (03:06→16:59)
[2022-11-27] MEDS: ALBUTEROL SO4 2.5/IPRATROPIUM 0.5 INH SOL 3 ML VIAL.NEB. NEB SCH ×4 (07:31→20:13)
[2022-11-27] MEDS: BUDESONIDE 0.25 MG/2ML INH SUSP VIAL NEB SCH ×2 (07:31→20:13)
[2022-11-27] MEDS: FUROSEMIDE 20 MG TABLET (FP) PO SCH (09:11)
[2022-11-27] MEDS: APIXABAN 5 MG TABLET PO SCH ×2 (09:11→21:03)
[2022-11-27] MEDS: PANTOPRAZOLE 40 MG TABLET PO SCH (09:11)
[2022-11-27] MEDS: ASPIRIN 81 MG CHEWABLE TABLETS PO SCH (09:11)
[2022-11-27] MEDS: metoPROLOL SUCCINATE 25 MG TAB.SR.24H (FP) PO SCH (09:11)
[2022-11-27] MEDS: ACETAMINOPHEN 325 MG TABLET (FP) PO PRN (18:35)
[2022-11-28] MEDS: methylPREDNISolone NA SUCC 40 MG/1 ML VIAL IVPUSH SCH ×3 (01:52→17:16)
[2022-11-28] MEDS: guaiFENesin/CODEINE 10 ML UNIT-DOSE CUPS PO PRN ×2 (01:53→20:17)
[2022-11-28] MEDS: ALBUTEROL SO4 2.5/IPRATROPIUM 0.5 INH SOL 3 ML VIAL.NEB. NEB SCH ×4 (08:15→20:22)
[2022-11-28] MEDS: BUDESONIDE 0.25 MG/2ML INH SUSP VIAL NEB SCH ×2 (08:15→20:22)
[2022-11-28] MEDS: PANTOPRAZOLE 40 MG TABLET PO SCH (09:14)
[2022-11-28] MEDS: metoPROLOL SUCCINATE 25 MG TAB.SR.24H (FP) PO SCH (09:14)
[2022-11-28] MEDS: FUROSEMIDE 20 MG TABLET (FP) PO SCH (09:14)
[2022-11-28] MEDS: APIXABAN 5 MG TABLET PO SCH ×2 (09:14→21:00)
[2022-11-28] MEDS: ASPIRIN 81 MG CHEWABLE TABLETS PO SCH (09:14)
[2022-11-28] MEDS: ACETAMINOPHEN 325 MG TABLET (FP) PO PRN (09:44)
[2022-11-28] MEDS: BENZOCAINE/MENTH/CETYLPYRD CL 1 EACH LOZENGE MM PRN ×4 (09:45→20:16)
[2022-11-28 11:33] LABS: HEMOGLOBIN 14.2 GM/dL (10.7-15.3); LYMPH % 7.3 % (8-40); MCHC 32.4 g/dl (32.0-36.0); MEAN CELL VOLUME 86.3 fl (80-96); MEAN PLT VOLUME 9.3 fl (7.5-11.1); MONO % 6.2 % (3.8-10.2); NEUT % 86.5 % (42.8-82.8); PLATELET COUNT 248 10^3/uL (134-434); RBC 5.09 M/mm3 (3.60-5.2); RDW 14.2 % (11.6-15.6); WHITE BLOOD COUNT 11.7 K/mm3 (4.0-10.0)
[2022-11-28 11:47] LABS: BLOOD UREA NITROGEN 20.5 mg/dL (7-18); CALCIUM 9.3 mg/dL (8.5-10.1)
[2022-11-28 11:48] LABS: ALBUMIN 3.2 g/dl (3.4-5.0)
[2022-11-28 11:50] LABS: CREATININE 0.8 mg/dL (0.55-1.3)
[2022-11-28 11:51] LABS: BILIRUBIN,TOTAL 0.4 mg/dL (0.2-1)
[2022-11-29] MEDS: ALBUTEROL SO4 0.083% IH SOL 2.5 MG/3 ML VIAL.NEB. NEB PRN (01:25)
[2022-11-29] MEDS: methylPREDNISolone NA SUCC 40 MG/1 ML VIAL IVPUSH SCH ×3 (01:36→17:19)
[2022-11-29] MEDS: ALBUTEROL SO4 2.5/IPRATROPIUM 0.5 INH SOL 3 ML VIAL.NEB. NEB SCH ×4 (08:10→20:09)
[2022-11-29] MEDS: BUDESONIDE 0.25 MG/2ML INH SUSP VIAL NEB SCH ×2 (08:10→20:09)
[2022-11-29] MEDS: FUROSEMIDE 20 MG TABLET (FP) PO SCH (09:22)
[2022-11-29] MEDS: PANTOPRAZOLE 40 MG TABLET PO SCH (09:22)
[2022-11-29] MEDS: ASPIRIN 81 MG CHEWABLE TABLETS PO SCH (09:22)
[2022-11-29] MEDS: metoPROLOL SUCCINATE 25 MG TAB.SR.24H (FP) PO SCH (09:22)
[2022-11-29] MEDS: APIXABAN 5 MG TABLET PO SCH ×2 (09:22→21:09)
[2022-11-29] MEDS: ACETAMINOPHEN 325 MG TABLET (FP) PO PRN (09:30)
[2022-11-29] MEDS ORDERED: AZITHROMYCIN IVPB 500 MG/250 ML BAG IVPB ONE (11:15)
[2022-11-29] MEDS ORDERED: DOCUSATE SODIUM 100 MG CAPSULE (FP) PO PRN (13:23)
[2022-11-29] MEDS: guaiFENesin/CODEINE 10 ML UNIT-DOSE CUPS PO PRN (21:06)
[2022-11-29] MEDS: SENNOSIDES 8.8 MG/5 ML SYRUP PO SCH (21:10)
[2022-11-30] MEDS: methylPREDNISolone NA SUCC 40 MG/1 ML VIAL IVPUSH SCH ×3 (01:17→17:47)
[2022-11-30] MEDS: ALBUTEROL SO4 2.5/IPRATROPIUM 0.5 INH SOL 3 ML VIAL.NEB. NEB SCH ×4 (08:00→20:42)
[2022-11-30] MEDS: BUDESONIDE 0.25 MG/2ML INH SUSP VIAL NEB SCH ×2 (08:00→20:43)
[2022-11-30] MEDS: PANTOPRAZOLE 40 MG TABLET PO SCH (10:00)
[2022-11-30] MEDS: AZITHROMYCIN IVPB 250 MG in DEXTROSE 5%-WATER - 250 ML IVPB SCH (10:00)
[2022-11-30] MEDS: metoPROLOL SUCCINATE 25 MG TAB.SR.24H (FP) PO SCH (10:00)
[2022-11-30] MEDS: ASPIRIN 81 MG CHEWABLE TABLETS PO SCH (10:00)
[2022-11-30] MEDS: APIXABAN 5 MG TABLET PO SCH ×2 (10:00→21:06)
[2022-11-30] MEDS: FUROSEMIDE 20 MG TABLET (FP) PO SCH (10:00)
[2022-11-30] MEDS: ATORVASTATIN CA 20 MG TABLET (FP) PO SCH (21:05)
[2022-11-30] MEDS: SENNOSIDES 8.8 MG/5 ML SYRUP PO SCH (21:06)
[2022-11-30] MEDS: guaiFENesin/CODEINE 10 ML UNIT-DOSE CUPS PO PRN (21:06)
[2022-11-30] MEDS ORDERED: APIXABAN 5 MG TABLET PO SCH (22:00)
[2022-12-01] MEDS: methylPREDNISolone NA SUCC 40 MG/1 ML VIAL IVPUSH SCH ×3 (01:23→21:10)
[2022-12-01] MEDS: ACETAMINOPHEN 325 MG TABLET (FP) PO PRN ×2 (05:42→21:11)
[2022-12-01] MEDS: guaiFENesin/CODEINE 10 ML UNIT-DOSE CUPS PO PRN ×2 (05:42→21:06)
[2022-12-01 07:17] LABS: HEMATOCRIT 40.8 % (32.4-45.2); HEMOGLOBIN 13.3 GM/dL (10.7-15.3); MCHC 32.6 g/dl (32.0-36.0); MEAN CELL VOLUME 85.8 fl (80-96); MEAN PLT VOLUME 8.8 fl (7.5-11.1); PLATELET COUNT 236 10^3/uL (134-434); RBC 4.76 M/mm3 (3.60-5.2); RDW 14.1 % (11.6-15.6); WHITE BLOOD COUNT 13.4 K/mm3 (4.0-10.0)
[2022-12-01 07:45] LABS: CALCIUM 8.8 mg/dL (8.5-10.1)
[2022-12-01 07:46] LABS: BLOOD UREA NITROGEN 23.1 mg/dL (7-18)
[2022-12-01 07:49] LABS: CREATININE 0.8 mg/dL (0.55-1.3)
[2022-12-01] MEDS: BUDESONIDE 0.25 MG/2ML INH SUSP VIAL NEB SCH ×2 (08:02→20:10)
[2022-12-01] MEDS: ALBUTEROL SO4 2.5/IPRATROPIUM 0.5 INH SOL 3 ML VIAL.NEB. NEB SCH ×4 (08:02→20:10)
[2022-12-01] MEDS: amLODIPine BESYLATE 5 MG TABLET (FP) PO SCH (09:22)
[2022-12-01] MEDS: metoPROLOL SUCCINATE 25 MG TAB.SR.24H (FP) PO SCH (09:22)
[2022-12-01] MEDS: DONEPEZIL HCL 5 MG TABLET (FP) PO SCH (09:22)
[2022-12-01] MEDS: PANTOPRAZOLE 40 MG TABLET PO SCH (09:22)
[2022-12-01] MEDS: ASPIRIN 81 MG CHEWABLE TABLETS PO SCH (09:22)
[2022-12-01] MEDS: APIXABAN 5 MG TABLET PO SCH ×2 (09:22→21:06)
[2022-12-01] MEDS: FUROSEMIDE 20 MG TABLET (FP) PO SCH (09:22)
[2022-12-01] MEDS: VALSARTAN 40 MG TABLET PO SCH (09:22)
[2022-12-01] MEDS: AZITHROMYCIN IVPB 250 MG in DEXTROSE 5%-WATER - 250 ML IVPB SCH (09:23)
[2022-12-01] MEDS ORDERED: PATIENT'S OWN MEDICATION (NON-FORMULARY) (Omeprazole [Omeprazole] 20 MG Tablet.Dr) PO SCH (10:00)
[2022-12-01] MEDS: SOLIFENACIN SUCCINATE 5 MG TAB PO SCH (11:24)
[2022-12-01] MEDS: ATORVASTATIN CA 20 MG TABLET (FP) PO SCH (21:06)
[2022-12-01] MEDS: SENNOSIDES 8.8 MG/5 ML SYRUP PO SCH (21:10)
[2022-12-02] MEDS: ALBUTEROL SO4 2.5/IPRATROPIUM 0.5 INH SOL 3 ML VIAL.NEB. NEB SCH ×4 (07:40→20:25)
[2022-12-02] MEDS: BUDESONIDE 0.25 MG/2ML INH SUSP VIAL NEB SCH ×2 (07:45→20:25)
[2022-12-02] MEDS: SOLIFENACIN SUCCINATE 5 MG TAB PO SCH (11:00)
[2022-12-02] MEDS: methylPREDNISolone NA SUCC 40 MG/1 ML VIAL IVPUSH SCH (11:00)
[2022-12-02] MEDS: metoPROLOL SUCCINATE 25 MG TAB.SR.24H (FP) PO SCH (11:01)
[2022-12-02] MEDS: VALSARTAN 40 MG TABLET PO SCH ×2 (11:01→11:32)
[2022-12-02] MEDS: PANTOPRAZOLE 40 MG TABLET PO SCH (11:01)
[2022-12-02] MEDS: AZITHROMYCIN IVPB 250 MG in DEXTROSE 5%-WATER - 250 ML IVPB SCH (11:01)
[2022-12-02] MEDS: amLODIPine BESYLATE 5 MG TABLET (FP) PO SCH (11:01)
[2022-12-02] MEDS: ASPIRIN 81 MG CHEWABLE TABLETS PO SCH (11:01)
[2022-12-02] MEDS: FUROSEMIDE 20 MG TABLET (FP) PO SCH (11:01)
[2022-12-02] MEDS: APIXABAN 5 MG TABLET PO SCH ×2 (11:01→22:04)
[2022-12-02] MEDS: DONEPEZIL HCL 5 MG TABLET (FP) PO SCH (11:01)
[2022-12-02] MEDS: guaiFENesin/CODEINE 10 ML UNIT-DOSE CUPS PO PRN (22:03)
[2022-12-02] MEDS: ATORVASTATIN CA 20 MG TABLET (FP) PO SCH (22:04)
[2022-12-02] MEDS: BENZOCAINE/MENTH/CETYLPYRD CL 1 EACH LOZENGE MM PRN (22:05)
[2022-12-02] MEDS: SENNOSIDES 8.8 MG/5 ML SYRUP PO SCH (22:05)
[2022-12-03] MEDS: ALBUTEROL SO4 2.5/IPRATROPIUM 0.5 INH SOL 3 ML VIAL.NEB. NEB SCH ×2 (08:55→12:29)
[2022-12-03] MEDS: BUDESONIDE 0.25 MG/2ML INH SUSP VIAL NEB SCH (08:56)
[2022-12-03] MEDS: APIXABAN 5 MG TABLET PO SCH (09:40)
[2022-12-03] MEDS: FUROSEMIDE 20 MG TABLET (FP) PO SCH (09:40)
[2022-12-03] MEDS: ASPIRIN 81 MG CHEWABLE TABLETS PO SCH (09:40)
[2022-12-03] MEDS: metoPROLOL SUCCINATE 25 MG TAB.SR.24H (FP) PO SCH (09:40)
[2022-12-03] MEDS: PANTOPRAZOLE 40 MG TABLET PO SCH (09:40)
[2022-12-03] MEDS: DONEPEZIL HCL 5 MG TABLET (FP) PO SCH (09:41)
[2022-12-03] MEDS: AZITHROMYCIN IVPB 250 MG in DEXTROSE 5%-WATER - 250 ML IVPB SCH (09:41)
[2022-12-03] MEDS: SOLIFENACIN SUCCINATE 5 MG TAB PO SCH (09:41)
[2022-12-03 10:00] VITALS: RESP 18
[2022-12-03] MEDS ORDERED: predniSONE 20 MG TABLET (UD) PO SCH (10:00)
[2022-12-03] MEDS: VALSARTAN 40 MG TABLET PO SCH (10:49)
[2022-12-03 14:42] VITALS: BP 109/64; PULSE 90; TEMP 98.1
== END 2022-12-03 15:45 | disposition home health service (06) | DRG 202 ==
LOC: JER 11:37 → JERBED 16:02 → J4S 11-26 18:57
PROVIDERS: ADMIT Internal Medicine; ATTEND Internal Medicine
DX: J21.0 Acute bronchiolitis due to respiratory syncytial virus (principal); I50.32 Chronic diastolic (congestive) heart failure; J44.1 Chronic obstructive pulmonary disease with (acute) exacerbation; J45.901 Unspecified asthma with (acute) exacerbation; I73.00 Raynaud's syndrome without gangrene; E78.5 Hyperlipidemia, unspecified; I48.91 Unspecified atrial fibrillation; I25.10 Atherosclerotic heart disease of native coronary artery without angina pectoris; I11.0 Hypertensive heart disease with heart failure
CPT/HCPCS: 0241U-QW; 36415; 71045-TC-FY; 71046-TC-FY; 71260-TC; 80048; 80053; 82803; 83735; 83880; 84100; 84484; 85025; 85027; 85610; 85730; 87040; 87070; 87205; 93005; 93010; 94640; 94761; 97116-GP; 97161-GP; 99285-25; J1100; Q9967